=== PATIENT | female | born 1935 | race Caucasian/White ===

== ENCOUNTER 2016-09-22 18:53 | Inpatient (IN) | payer MEDICARE, OTHER ==
[~2016-09-22 18:53] MED LIST: ASPI81 PO; CALC600T34 PO; CALC625 PO; ENAL20TA81 PO; FEXO180 PO; FISH1000 PO; LEVO.075 PO; NIFE90TA37 PO; OMEP20CA5 PO
[2016-09-22 19:08] VITALS: BP 139/71; PULSE 70; RESP 18; TEMP 98.2; O2SAT 98
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
[2016-09-22] MEDS ORDERED: DONE5TAB7 PO (19:46)
[2016-09-22] MEDS ORDERED: LEVO75TA3 PO (19:46)
[2016-09-22] MEDS ORDERED: ALPR0.5T3 PO (19:46)
[2016-09-22] MEDS ORDERED: GLIM1TAB PO (19:46)
[2016-09-22] MEDS ORDERED: FISH1000 (19:46)
[2016-09-22] MEDS ORDERED: OMEG300C5 (19:46)
[2016-09-22] MEDS ORDERED: HYOS0.128 PO (19:46)
[2016-09-22] MEDS ORDERED: ASPI81CH CHEW (19:46)
[2016-09-22] MEDS ORDERED: ENAL20TA PO (19:46)
[2016-09-22] MEDS ORDERED: VALP250C PO (19:46)
[2016-09-22] MEDS ORDERED: NIFE30TA8 PO (19:46)
[2016-09-22] MEDS ORDERED: CALC600T64 (19:46)
[2016-09-22] MEDS ORDERED: POLY17S PO (19:46)
[2016-09-22 19:56] LABS: AUTOMATED NEUTROPHIL # 5.2 TH/MM3 (1.8-7.7); BASOPHIL # 0.1 TH/MM3 (0-0.2); BASOPHIL % 0.9 % (0.0-2.0); EOSINOPHIL # 0.4 TH/MM3 (0-0.4); EOSINOPHIL % 4.5 % (0.0-4.0); HEMATOCRIT 34.9 % (35.0-46.0); HEMO FLAGS DIFF FINAL; LYMPH % 18.8 % (9.0-44.0); LYMPHOCYTE # 1.5 TH/MM3 (1.0-4.8); MEAN CORPUSCULAR HEMOGLOBIN 32.5 PG (27.0-34.0); MEAN CORPUSCULAR HGB CONC 34.2 % (32.0-36.0); MONO % 10.8 % (0.0-8.0); PLATELET COUNT 295 TH/MM3 (150-450); RED BLOOD COUNT 3.68 MIL/MM3 (4.00-5.30); RED CELL DISTRIBUTION WIDTH 13.1 % (11.6-17.2)
[2016-09-22 20:21] LABS: ANION GAP 10 MEQ/L (5-15); AST (GOT) 14 U/L (15-37); BICARBONATE 28.9 MEQ/L (21.0-32.0); BLOOD UREA NITROGEN 17 MG/DL (7-18); CHLORIDE 98 MEQ/L (98-107); GLOMERULAR FILTRATION RATE 50 ML/MIN (>89); POTASSIUM 3.1 MEQ/L (3.5-5.1); SODIUM (NA) 137 MEQ/L (136-145)
[2016-09-22 20:22] LABS: ALT (GPT) 30 U/L (10-53)
[2016-09-22 20:24] LABS: ALKALINE PHOSPHATASE 65 U/L (45-117); TOTAL BILIRUBIN ADULT LESS THAN 0.1 MG/DL (0.2-1.0)
[2016-09-22 20:36] LABS: BACTERIA, URINE MANY /hpf; BLOOD, URINE NEG (NEG); GLUCOSE,URINE NEG (NEG); KETONE, URINE NEG (NEG); MUCUS URINE FEW /lpf (OCC); PH, URINE 6.5 (5.0-8.5); SQUAMOUS EPITHELIAL CELL URINE 1 /hpf (0-5); URINE COLOR YELLOW (YELLW/STRAW)
[2016-09-22 20:37] LABS: COMMENT (UR) CULTURE INDICATED; CULTURE IF INDICATED CULTURE INDICATED; NITRITE,URINE POS (NEG)
[2016-09-22] MEDS ORDERED: MACR100C2 PO (20:44)
[2016-09-22] MEDS: NITROFURANTOIN MONOHYD MACROCR 100 MG CAP PO SCH ×2 (20:45→22:30)
[2016-09-22] MEDS ORDERED: SULFAMETHOXAZOLE-TRIMETHOPRIM DS 800-160 MG TAB PO SCH (21:00)
[2016-09-22] MEDS ORDERED: HALOPERIDOL LACTATE 5 MG/ML AMP IM ONE ×2 (21:45→22:30)
[2016-09-22 21:57] VITALS: BP 191/83; PULSE 74; RESP 16; O2SAT 98
[2016-09-23 01:45] VITALS: BP 148/73; PULSE 72; RESP 15; TEMP 99; O2SAT 96
[2016-09-23 02:35] VITALS: BP 150/64; PULSE 84; RESP 18; TEMP 97.6; O2SAT 97
[2016-09-23] MEDS ORDERED: ACETAMINOPHEN 325 MG TAB PO PRN (03:45)
[2016-09-23] MEDS ORDERED: ALUMINUM/MAGNESIUM/SIMETH 30 ML CUP PO PRN (03:45)
[2016-09-23] MEDS ORDERED: MAGNESIUM HYDROXIDE SUSP 30 ML CUP PO PRN (03:45)
[2016-09-23] MEDS ORDERED: TEMAZEPAM 15 MG CAP PO PRN (04:00)
[2016-09-23] MEDS ORDERED: POLYETHYLENE GLYCOL 17 GM PKG PO PRN (04:30)
[2016-09-23] MEDS ORDERED: HYOSCYAMINE 0.125 MG TAB PO PRN (04:45)
[2016-09-23 05:16] VITALS: BP 141/56; PULSE 86; RESP 16; TEMP 97.6; O2SAT 97
[2016-09-23] MEDS ORDERED: FATTY ACID PO SCH (09:00)
[2016-09-23] MEDS ORDERED: OMEGA PO SCH (09:00)
[2016-09-23] MEDS: ALPRAZolam 0.5 MG TAB PO SCH ×2 (09:02→21:20)
[2016-09-23] MEDS: GLIMEPIRIDE 1 MG TAB PO SCH ×2 (09:02→21:20)
[2016-09-23] MEDS: VALPROIC ACID 250 MG CAP PO SCH ×2 (09:02→21:20)
[2016-09-23] MEDS: NIFEdipine 30 MG SUSTAINED RELEASE TAB PO SCH (09:02)
[2016-09-23] MEDS: ASPIRIN 81 MG CHEW TAB CHEW SCH (09:02)
[2016-09-23] MEDS: ENALAPRIL MALEATE 10 MG TAB PO SCH ×2 (09:02→21:19)
[2016-09-23] MEDS: CALCIUM/VITAMIN D 250 MG/125 U TAB PO SCH ×2 (09:02→21:20)
[2016-09-23] MEDS: NITROFURANTOIN MONOHYD MACROCR 100 MG CAP PO SCH ×2 (09:02→21:20)
[2016-09-23] MEDS ORDERED: GLUCAGON 1 MG/ML VIAL OTHER PRN (09:45)
[2016-09-23] MEDS ORDERED: DEXTROSE 50% IN WATER 50 ML VIAL(D50) IV PRN (09:45)
[2016-09-23] MEDS ORDERED: POTASSIUM CHLORIDE 20 MEQ CONTROLLED RELEASE TAB PO ONE (09:45)
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
[2016-09-23] MEDS: INSULIN ASPART SUPPLEMENTAL SCALE SQ SCH ×3 (11:00→21:00)
[2016-09-23] MEDS: LORazepam 0.5 MG TAB PO PRN (13:34)
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
[2016-09-23 18:00] VITALS: BP 143/60; PULSE 81; RESP 17; TEMP 97.5; O2SAT 98
[2016-09-23] MEDS: DONEPEZIL HCL 5 MG TAB PO SCH (21:20)
[2016-09-24 05:37] VITALS: BP 187/76; PULSE 74; RESP 16; TEMP 97.9; O2SAT 96
[2016-09-24] MEDS: INSULIN ASPART SUPPLEMENTAL SCALE SQ SCH ×4 (07:00→21:00)
[2016-09-24] MEDS: NIFEdipine 30 MG SUSTAINED RELEASE TAB PO SCH (08:42)
[2016-09-24] MEDS: ASPIRIN 81 MG CHEW TAB CHEW SCH (08:42)
[2016-09-24] MEDS: ALPRAZolam 0.5 MG TAB PO SCH ×2 (08:42→21:47)
[2016-09-24] MEDS: GLIMEPIRIDE 1 MG TAB PO SCH ×2 (08:42→21:48)
[2016-09-24] MEDS: VALPROIC ACID 250 MG CAP PO SCH ×2 (08:43→21:47)
[2016-09-24] MEDS: ENALAPRIL MALEATE 10 MG TAB PO SCH ×2 (08:43→21:47)
[2016-09-24] MEDS: CALCIUM/VITAMIN D 250 MG/125 U TAB PO SCH ×2 (08:43→21:47)
[2016-09-24] MEDS: NITROFURANTOIN MONOHYD MACROCR 100 MG CAP PO SCH ×2 (08:43→21:47)
--- NOTE | 2016-09-24 08:49 | PD.CONS ---
Provisional Diagnosis Admission Date Sep 23, 2016 at 00:37 [place] I. Dementia with behavioral disturbances F03.91 History of Present Illness Service Psychiatry Consult Requested By Dr. ruff Reason for Consult Second opinion petition [facility] Primary Care Physician Tacho Goldberg MD HPI Patient is an 80-year-old female admitted to Dr. ruff service under the [employer] act. Dr. ruff H&P reviewed and agreed with. Patient seen by me with floor staff in dayroom patient is diffusely confused though pleasant with no significant behavioral problems. Needing occasional interventions by staff. Dr. ruff signed first opinion petition supporting [facility]. I agree. Patient meets criteria for involuntary psychiatric hospitalization under the [facility]. Thus I will cosign second opinion petition supporting [facility] Past Family Social History Coded Allergies: Flagyl (Verified Allergy, Mild, NAUSEA, 07/14/07) Amlodipine (Verified Allergy, Unknown, 09/22/16) Benzonatate (Verified Allergy, Unknown, 09/22/16) Clonidine (Verified Allergy, Unknown, 09/22/16) Fluticasone (Verified Allergy, Unknown, 09/22/16) Labetalol (Verified Allergy, Unknown, 09/22/16) Propranolol (Verified Allergy, Unknown, 09/22/16) Active Scripts Nitrofurantoin Monohydrate Macrocrystals (Macrobid)100 Mg [id number] Mg PO BID 7 Days Ref 0 Prov:Gabriela Brito MD 09/22/16 Reported Medications Valproic Acid 250 Mg Uxr227 Mg PO BID #60 CAP Ref 0 09/22/16 Polyethylene Glycol 3350 Powder 17 Gm Pow17 Gm PO DIRECTED #1 BOTTLE Ref 0 09/22/16 Nifedipine ER 24 HR 30 Mg Tab Po Daily 09/22/16 Levothyroxine 75 Mcg Tab75 Mcg PO DAILY #30 TAB Ref 0 09/22/16 Hyoscyamine 0.125 Mg Tab0.125 Mg PO Q4H Ref 0 09/22/16 Glimepiride 1 Mg Tab1 Mg PO BID #30 TAB Ref 0 Take with breakfast or first main meal 09/22/16 [place]-3 Fatty Acids (Fish Oil)1,000 Mg Cap Bid 09/22/16 Enalapril 20 Mg Tab20 Mg PO BID #30 TAB Ref 0 09/22/16 Donepezil 5 Mg Tab5 Mg PO HS #30 TAB Ref 0 09/22/16 Calcium Carbonate/Vitamin D3 (Calcium 600 + Vit D Tablet)1 Each Tablet1 Tab 09/22/16 Aspirin 81 Mg Chew81 Mg CHEW DAILY Ref 0 09/22/16 Alprazolam 0.5 Mg Tab0.5 Mg PO BID Ref 0 09/22/16 Discontinued Reported Medications [place]-3 Fatty Acids (Fish Oil)300 Mg Capsule 09/22/16 Current Medications Medications (Trade) Dose Ordered Sig/Dayna Route Start Time Stop Time Status Last Admin (Tylenol) 650 mg Q4H PRN PO 09/23/16 03:45 (Milk Of Magnesia Liq) 30 ml DAILY PRN PO 09/23/16 03:45 (Mag-Al Plus Susp Liq) 30 ml Q6H PRN PO 09/23/16 03:45 (Ativan) 0.5 mg Q4H PRN PO 09/23/16 04:00 09/23/16 13:34 (Ativan Inj) 0.5 mg Q4H PRN IM 09/23/16 04:00 (Restoril) 15 mg HS PRN PO 09/23/16 04:00 (Xanax) 0.5 mg BID PO 09/23/16 09:00 09/23/16 21:20 (Aspirin Chew) 81 mg DAILY CHEW 09/23/16 09:00 09/23/16 09:02 (Aricept) 5 mg HS PO 09/23/16 21:00 09/23/16 21:20 (Vasotec) 20 mg BID PO 09/23/16 09:00 09/23/16 21:19 (Amaryl) 1 mg BID PO 09/23/16 09:00 09/23/16 21:20 (Procardia Xl) 30 mg DAILY PO 09/23/16 09:00 09/23/16 09:02 (Depakene) 250 mg BID PO 09/23/16 09:00 09/23/16 21:20 (Macrobid) 100 mg BID PO 09/23/16 09:00 09/23/16 21:20 (Oscal-D 250-125) 500 mg BID PO 09/23/16 09:00 09/23/16 21:20 (Miralax) 17 gm DAILY PRN PO 09/23/16 04:30 (Levsin) 0.125 mg Q4H PRN PO 09/23/16 04:45 Patient Own Medication PT OWN MED: FISH OIL D... BID PO 09/23/16 09:00 Hold (D50w (Vial) Inj) 50 ml UNSCH PRN IV 09/23/16 09:45 (Glucagon Inj) 1 mg UNSCH PRN OTHER 09/23/16 09:45 Physical Exam Vital Signs Vital Signs Date Time Temp Pulse Resp B/P Pulse Ox O2 Delivery O2 Flow Rate FiO2 09/24/16 05:37 97.9 74 16 187/76 96 09/23/16 01:45 Room Air I/O 09/23/16 09/23/16 09/24/16 08:00 16:00 00:00 Intake Total 120 ml 240 ml 480 ml Balance 120 ml 240 ml 480 ml Mental Status Examination Alert diffusely confused white female Appearance Fairly clean and neat Speech: Circumstantial, Tangential Orientation: Person, Place (vaguely) Memory: Impaired (describe) Thought Process: Loose Association Thought Content: Other (disorganized) Language Poor Fund of Knowledge Poor Hallucination Type: None Attention and Concentration: Other (poor) Suicidal Ideation: No Previous Suicide Attempts: No Homicidal Ideation: No Previous Homicide Attempts: No Insight: Poor Judgment: Poor Affect: Other (slight decrease range of motion intensity) Mood: Euthymic (somewhat restricted) Motor Activity: Abnormal gait-specify (patient sitting in [place] chair unable to ascertain) Assessment & Plan Problem List: (1) Dementia with behavioral disturbance ICD Code: F03.91 Assessment & Plan Estimated LOS: days Problem Qualifiers (1) Dementia with behavioral disturbance: Qualified Code: F03.91 - Dementia with behavioral disturbance, unspecified dementia type Juancho Becerra MD Sep 24, 2016 08:49
[2016-09-24] MEDS ORDERED: cloNIDine HCL 0.1 MG TAB PO PRN (09:15)
[2016-09-24 11:25] LABS: ANION GAP 6 MEQ/L (5-15); BICARBONATE 33.1 MEQ/L (21.0-32.0); BLOOD UREA NITROGEN 19 MG/DL (7-18); CHLORIDE 98 MEQ/L (98-107); GLOMERULAR FILTRATION RATE 56 ML/MIN (>89); POTASSIUM 3.8 MEQ/L (3.5-5.1); SODIUM (NA) 137 MEQ/L (136-145)
[2016-09-24 12:00] LABS: FREE T4 1.07 NG/DL (0.76-1.46); HDL CHOLESTEROL 52.9 MG/DL (40.0-60.0); LDL CHOLESTEROL 144 MG/DL (0-99)
[2016-09-24 13:00] VITALS: BP 161/76; PULSE 79
[2016-09-24] MEDS ORDERED: hydrALAZINE HCL 25 MG TAB PO PRN (13:15)
--- NOTE | 2016-09-24 13:17 | HHI.PR ---
Subjective Remarks Patient seen in follow-up for hypertension, UTI, hypokalemia, dementia admitted to the psychiatric unit under Piña act for psychosis. She appears calm today. She is requesting juice. No fever or chills. Objective Vitals Vital Signs Date Time Temp Pulse Resp B/P Pulse Ox O2 Delivery O2 Flow Rate FiO2 09/24/16 05:37 97.9 74 16 187/76 96 09/23/16 18:00 97.5 81 17 143/60 98 I/O 09/23/16 09/23/16 09/23/16 09/24/16 09/24/16 09/24/16 07:00 15:00 23:00 07:00 15:00 23:00 Intake Total 0 ml 360 ml 480 ml 0 ml 360 ml Balance 0 ml 360 ml 480 ml 0 ml 360 ml Intake Oral 0 ml 360 ml 480 ml 0 ml 360 ml # Voids 1 2 2 Result Diagram: 09/22/16 1945 09/24/16 1016 Objective Remarks GENERAL: Elderly female, demented. CARDIOVASCULAR: Normal rate and regular rhythm without murmurs, gallops, or rubs. RESPIRATORY: Good respiratory efforts. Breath sounds equal and clear to auscultation bilaterally. GASTROINTESTINAL: Abdomen soft, non-tender, non-distended. Normal active bowel sounds MUSCULOSKELETAL: Extremities without cyanosis, or edema. NEURO: Alert and oriented to self. Moves all ext x4 PSYCH: Calm A/P Problem List: (1) Dementia with behavioral disturbance ICD Code: F03.91 Status: Acute Plan: Management per psychiatry. (2) Urinary tract infection ICD Code: N39.0 Status: Acute Plan: Urine grew Escherichia coli. Sensitive to Macrobid. Continue Macrobid (3) Hypertension ICD Code: I10 Status: Acute Plan: Blood pressure labile. Mostly controlled. Continue Procardia and Vasotec. Hydralazine as needed. (4) Hypokalemia ICD Code: E87.6 Status: Acute Plan: Resolved. (5) Hyperlipidemia ICD Code: E78.5 Status: Acute Problem Qualifiers (1) Dementia with behavioral disturbance: Qualified Code: F03.91 - Dementia with behavioral disturbance, unspecified dementia type (2) Urinary tract infection: Qualified Code: N30.00 - Acute cystitis without hematuria Jairo Guzmán MD Sep 24, 2016 13:17
[2016-09-24 16:46] LABS: HEMOGLOBIN A1a 0.9 %; HEMOGLOBIN A1b 1.2 %; HEMOGLOBIN Ao 83.1 %; HEMOGLOBIN LA1C 2.5 %; HEMOGLOBIN P3 4.4 %
[2016-09-24 18:00] VITALS: BP 131/71; PULSE 80; RESP 18; TEMP 98.3; O2SAT 98
[2016-09-24] MEDS: DONEPEZIL HCL 5 MG TAB PO SCH (21:47)
[2016-09-25 06:12] VITALS: BP 149/72; PULSE 76; RESP 17; TEMP 98.1; O2SAT 95
[2016-09-25] MEDS: INSULIN ASPART SUPPLEMENTAL SCALE SQ SCH ×4 (06:38→21:00)
[2016-09-25] MEDS: GLIMEPIRIDE 1 MG TAB PO SCH ×2 (09:26→21:29)
[2016-09-25] MEDS: NIFEdipine 30 MG SUSTAINED RELEASE TAB PO SCH (09:26)
[2016-09-25] MEDS: ENALAPRIL MALEATE 10 MG TAB PO SCH ×2 (09:26→21:29)
[2016-09-25] MEDS: CALCIUM/VITAMIN D 250 MG/125 U TAB PO SCH ×2 (09:27→21:29)
[2016-09-25] MEDS: ASPIRIN 81 MG CHEW TAB CHEW SCH (09:27)
[2016-09-25] MEDS: NITROFURANTOIN MONOHYD MACROCR 100 MG CAP PO SCH ×2 (09:27→21:29)
[2016-09-25] MEDS: ALPRAZolam 0.5 MG TAB PO SCH ×2 (09:27→21:29)
[2016-09-25] MEDS: VALPROIC ACID 250 MG CAP PO SCH ×2 (09:27→21:28)
[2016-09-25 14:45] VITALS: BP 102/59; PULSE 77; RESP 18; TEMP 98; O2SAT 96
[2016-09-25 15:55] VITALS: BP 175/82; PULSE 89; RESP 18; TEMP 97.5; O2SAT 98
[2016-09-25 17:52] LABS: SM ANTIBODY <1.0 NEG AI (<1.0 NEGATIVE); SM/RNP ANTIBODY <1.0 NEG AI (<1.0 NEGATIVE)
[2016-09-25 18:01] VITALS: BP 175/82; PULSE 89; RESP 18; TEMP 97.5; O2SAT 98
[2016-09-25] MEDS: LORazepam 0.5 MG TAB PO PRN (18:04)
[2016-09-25] MEDS: DONEPEZIL HCL 5 MG TAB PO SCH (21:29)
[2016-09-26 05:51] VITALS: BP 160/73; PULSE 63; RESP 16; TEMP 98; O2SAT 96
[2016-09-26] MEDS: INSULIN ASPART SUPPLEMENTAL SCALE SQ SCH ×4 (06:13→21:00)
[2016-09-26] MEDS: LORazepam 2 MG/ML VIAL IM PRN ×2 (07:30→17:45)
[2016-09-26] MEDS: CALCIUM/VITAMIN D 250 MG/125 U TAB PO SCH ×2 (09:00→21:23)
[2016-09-26] MEDS: NIFEdipine 30 MG SUSTAINED RELEASE TAB PO SCH (09:00)
[2016-09-26] MEDS: GLIMEPIRIDE 1 MG TAB PO SCH ×2 (09:00→21:23)
[2016-09-26] MEDS: VALPROIC ACID 250 MG CAP PO SCH ×2 (09:00→21:23)
[2016-09-26] MEDS: ENALAPRIL MALEATE 10 MG TAB PO SCH ×2 (09:00→21:23)
[2016-09-26] MEDS: ASPIRIN 81 MG CHEW TAB CHEW SCH (09:00)
[2016-09-26] MEDS: NITROFURANTOIN MONOHYD MACROCR 100 MG CAP PO SCH ×2 (09:00→21:26)
[2016-09-26] MEDS: ALPRAZolam 0.5 MG TAB PO SCH ×2 (09:00→21:23)
--- NOTE | 2016-09-26 14:33 | HHI.PR ---
Subjective Remarks Follow-up visit HTN, UTI, hypokalemia, dementia. Patient seen and examined today, lying in bed. Reports she is tired. Otherwise, denies pain and discomfort. Denies fevers, chills. Denies dysuria. Objective Vitals Vital Signs Date Time Temp Pulse Resp B/P Pulse Ox O2 Delivery O2 Flow Rate FiO2 09/26/16 05:51 98.0 63 16 160/73 96 09/25/16 18:01 97.5 89 18 175/82 98 09/25/16 15:55 97.5 89 18 175/82 98 09/25/16 14:45 98.0 77 18 102/59 96 I/O 09/25/16 09/25/16 09/25/16 09/26/16 09/26/16 09/26/16 07:00 15:00 23:00 07:00 15:00 23:00 Intake Total 960 ml 60 ml 240 ml Balance 960 ml 60 ml 240 ml Intake Oral 960 ml 60 ml 240 ml # Voids 1 2 1 2 Result Diagram: 09/22/16 1945 09/24/16 1016 Objective Remarks GENERAL: This is a well-nourished, well-developed patient, in no apparent distress. SKIN: Warm and dry. HEENT: Normocephalic. Pupils equal round and reactive. Nose without bleeding. Airway patent. NECK: Trachea midline. No JVD. Supple. CARDIOVASCULAR: Regular rate and rhythm without murmurs, gallops, or rubs. RESPIRATORY: Clear to auscultation. Breath sounds equal bilaterally. No wheezes , rales, or rhonchi. GASTROINTESTINAL: Abdomen soft, non-tender, nondistended. Bowel Sounds normoactive x4. MUSCULOSKELETAL: Extremities without clubbing, cyanosis, or edema. NEUROLOGICAL: Awake and alert. Confuse. Oriented to self. Follows some commands and answers and responds to some questions. Moves all extremities. Normal speech. A/P Problem List: (1) Dementia with behavioral disturbance ICD Code: F03.91 Status: Acute (2) Urinary tract infection ICD Code: N39.0 Status: Acute (3) Hypertension ICD Code: I10 Status: Acute (4) Hypokalemia ICD Code: E87.6 Status: Acute (5) Hyperlipidemia ICD Code: E78.5 Status: Acute Assessment and Plan Patient is an 80-year-old female with primary medical history of Alzheimer's disease who presents to the ED as a Piña acted by police department. As per report, the patient is a resident of an [facility] and became violent trying to take away other resident's silverware. She is now admitted to inpatient psychiatry unit for further evaluation. Consulted for medical management. Dementia, Alzheimer's disease - Managed by psychiatry team Urinary tract infection - Urine culture grew Escherichia coli. Sensitive to Macrobid. - Continue Macrobid use. - Encourage by mouth fluid intake. HTN - Continue Procardia and Vasotec. Hydralazine as needed. ASA. - Monitor BP trend DM 2 - Continue insulin sliding scale, glimepiride - Monitor Accu-Cheks. - Monitor for hypoglycemia Hyperlipidemia - Due to patient's mental status, will weigh in risk benefits of starting statin medication. - Continue with low-cholesterol diet DVT prop ambulatory Discussed with patient, nursing, Dr. Guzmán Problem Qualifiers (1) Dementia with behavioral disturbance: Qualified Code: F03.91 - Dementia with behavioral disturbance, unspecified dementia type (2) Urinary tract infection: Qualified Code: N30.00 - Acute cystitis without hematuria Janet Ley Sep 26, 2016 14:33
[2016-09-26 18:02] VITALS: BP 147/66; PULSE 73; RESP 16; TEMP 97.8; O2SAT 97
[2016-09-26] MEDS: DONEPEZIL HCL 5 MG TAB PO SCH (21:23)
[2016-09-27] MEDS: INSULIN ASPART SUPPLEMENTAL SCALE SQ SCH ×4 (06:00→20:10)
[2016-09-27 06:38] VITALS: BP 140/57; PULSE 76; RESP 17; TEMP 98; O2SAT 93
[2016-09-27] MEDS: GLIMEPIRIDE 1 MG TAB PO SCH ×2 (08:18→20:10)
[2016-09-27] MEDS: ASPIRIN 81 MG CHEW TAB CHEW SCH (08:18)
[2016-09-27] MEDS: ENALAPRIL MALEATE 10 MG TAB PO SCH ×2 (08:18→20:09)
[2016-09-27] MEDS: NITROFURANTOIN MONOHYD MACROCR 100 MG CAP PO SCH ×2 (08:18→20:09)
[2016-09-27] MEDS: CALCIUM/VITAMIN D 250 MG/125 U TAB PO SCH ×2 (08:18→20:09)
[2016-09-27] MEDS: NIFEdipine 30 MG SUSTAINED RELEASE TAB PO SCH (08:18)
[2016-09-27] MEDS: ALPRAZolam 0.5 MG TAB PO SCH ×2 (08:18→20:10)
[2016-09-27] MEDS: VALPROIC ACID 250 MG CAP PO SCH ×2 (08:18→20:10)
[2016-09-27] MEDS: LORazepam 2 MG/ML VIAL IM PRN ×2 (12:17→17:12)
--- NOTE | 2016-09-27 15:28 | HHI.PR ---
Objective Vitals Vital Signs Date Time Temp Pulse Resp B/P Pulse Ox O2 Delivery O2 Flow Rate FiO2 09/27/16 06:38 98.0 76 17 140/57 93 09/26/16 18:02 97.8 73 16 147/66 97 I/O 09/26/16 09/26/16 09/26/16 09/27/16 09/27/16 09/27/16 07:00 15:00 23:00 07:00 15:00 23:00 Intake Total 240 ml 600 ml 120 ml 240 ml Balance 240 ml 600 ml 120 ml 240 ml Intake Oral 240 ml 600 ml 120 ml 240 ml # Voids 2 1 2 Result Diagram: 09/22/16 1945 09/24/16 1016 Objective Remarks GENERAL: This is a well-nourished, well-developed patient, in no apparent distress. SKIN: Warm and dry. HEENT: Normocephalic. Pupils equal round and reactive. Nose without bleeding. Airway patent. NECK: Trachea midline. No JVD. Supple. CARDIOVASCULAR: Regular rate and rhythm without murmurs, gallops, or rubs. RESPIRATORY: Clear to auscultation. Breath sounds equal bilaterally. No wheezes , rales, or rhonchi. GASTROINTESTINAL: Abdomen soft, non-tender, nondistended. Bowel Sounds normoactive x4. MUSCULOSKELETAL: Extremities without clubbing, cyanosis, or edema. NEUROLOGICAL: Awake and alert. Confuse. Oriented to self. Follows some commands and answers and responds to some questions. Moves all extremities. Normal speech. A/P Problem List: (1) Dementia with behavioral disturbance ICD Code: F03.91 Status: Acute (2) Urinary tract infection ICD Code: N39.0 Status: Acute (3) Hypertension ICD Code: I10 Status: Acute (4) Hypokalemia ICD Code: E87.6 Status: Acute (5) Hyperlipidemia ICD Code: E78.5 Status: Acute Assessment and Plan Patient is an 80-year-old female with primary medical history of Alzheimer's disease who presents to the ED as a Piña acted by police department. As per report, the patient is a resident of an [facility] and became violent trying to take away other resident's silverware. She is now admitted to inpatient psychiatry unit for further evaluation. Consulted for medical management. Dementia, Alzheimer's disease - Managed by psychiatry team Urinary tract infection - Urine culture grew Escherichia coli. Sensitive to Macrobid. - Continue Macrobid use. - Encourage by mouth fluid intake. HTN - Continue Procardia and Vasotec. Hydralazine as needed. ASA. - Monitor BP trend DM 2 - Continue insulin sliding scale, glimepiride - Monitor Accu-Cheks. - Monitor for hypoglycemia Hyperlipidemia - Due to patient's mental status, will weigh in risk benefits of starting statin medication. - Continue with low-cholesterol diet DVT prop ambulatory Discussed with patient, nursing, Dr. Guzmán Problem Qualifiers (1) Dementia with behavioral disturbance: Qualified Code: F03.91 - Dementia with behavioral disturbance, unspecified dementia type (2) Urinary tract infection: Qualified Code: N30.00 - Acute cystitis without hematuria Janet Ley Sep 27, 2016 15:28
[2016-09-27] MEDS: HALOPERIDOL 0.5 MG TAB PO SCH (16:00)
--- NOTE | 2016-09-27 17:45 | MH ---
cc: BHARAT HUGHES M.D. DATE OF ADMISSION: 09/23/2016 DATE OF VISIT: 09/27/2016. EXTENDED SESSION Individual session with the patient, review with the treatment team, extended telephone conversation with her daughter, Wendi. In the individual sessions, she was observed sitting in the day room in the Joe chair with staff in attendance. She was not very verbal and kept insisting that she be allowed to sit with another patient in the other corner. She would not answer any specific questions. The staff in attendance reported that she has been very combative and threw her medications, was making obscene gestures to staff, et cetera. When questioned about this, she denied engaging in this behavior. She stated that she has been sleeping well and at that her appetite has been fine. Her cognitive function is unchanged. No suicidal or homicidal ideations were verbalized. The nursing staff reported that she threw her medications away and did not wish to take any more. She is on one-to-one due to her fall risk. I had a telephone conversation with her daughter, Wendi. The purpose of this was to gather more background information, to review diagnosis, treatment approach and discuss discharge plans. She indicated that Ms. Meade had worked for the [employer] for over 30 years and retired about 6 years ago. She returned to work doing part-time work at the [employer]. She began to deteriorate cognitively about 4 years ago at which time her was also deteriorating due to a cerebrovascular accident. She lived in the [facility] for two years and then was transferred to the current assisted living facility two years ago. While in this facility, she has been increasingly demanding and at times combative. The daughter indicated that she has always been a somewhat demanding individual and her has taken care of her most of her life. Since his about four months ago, she has been somewhat more irritable and combative. The daughter indicated that about 6 months ago she was evaluated by psychiatrist, Dr. Alvarez. She did not seem much aware of as to what medications were prescribed. Specifically, she denied any knowledge of her being on Depakote or the reasons for it. She denied any knowledge of the patient experiencing any seizures in the past. She also could not give much information regarding the dementia workup done in the past. She mentioned she had been under care of Dr. Dietrich but about six months ago the care was transferred to Dr. Goldberg, who also would visit her in the assisted living facility. She also indicated that there is a psychiatrist affiliated with this facility but could not tell as to what medication might have been prescribed. Other than evaluation with Dr. Alvarez, she has not had any formal psychiatric evaluation. She denied any previous psychiatric hospitalization. The daughter denied any family history of psychiatric illness; however, indicated that her sister, i.e. the patient's other daughter is an alcoholic. The daughter denied any knowledge of alcohol or drugs in the daughter and denied the patient abusing any alcohol or drugs. I shared with her my diagnostic impression, the treatment approach and the discharge plans. She was not sure whether she will be accepted back at the assisted facility. As such, she went to look at [facility] last week but the person in charge was not there. She is aware of the court hearing coming up on 10/01/2016. She was supported the treatment / discharge plans. MD KYLE Og/JENI /4:51 PM /5:40 PM
[2016-09-27 20:00] VITALS: BP 155/70; PULSE 76; RESP 16; O2SAT 94
[2016-09-27] MEDS: DONEPEZIL HCL 5 MG TAB PO SCH (20:09)
[2016-09-28] MEDS: INSULIN ASPART SUPPLEMENTAL SCALE SQ SCH ×4 (06:00→21:00)
[2016-09-28 06:12] VITALS: BP 153/65; PULSE 76; RESP 17; TEMP 98.6; O2SAT 95
--- NOTE | 2016-09-28 07:02 | HHI.FPPN ---
Subjective Remarks calm in desmond chair does not remember getting her meds several minutes ago, asking for her am meds d/w RN, combative, directable Objective Vitals Vital Signs Date Time Temp Pulse Resp B/P Pulse Ox O2 Delivery O2 Flow Rate FiO2 09/28/16 06:12 98.6 76 17 153/65 95 09/27/16 20:00 76 16 155/70 94 I/O 09/27/16 09/27/16 09/27/16 09/28/16 09/28/16 09/28/16 07:00 15:00 23:00 07:00 15:00 23:00 Intake Total 120 ml 240 ml 795 ml Balance 120 ml 240 ml 795 ml Intake Oral 120 ml 240 ml 795 ml # Voids 2 1 1 Result Diagram: 09/24/16 1016 Objective Remarks GENERAL: SKIN: Warm and dry. HEAD: Atraumatic. Normocephalic. EYES: Pupils equal and round. No scleral icterus. No injection or drainage. ENT: No nasal bleeding or discharge. Mucous membranes pink and moist. NECK: Trachea midline. No JVD. CARDIOVASCULAR: Regular rate and rhythm. RESPIRATORY: No accessory muscle use. Clear to auscultation. Breath sounds equal bilaterally. GASTROINTESTINAL: Abdomen soft, non-tender, nondistended. Hepatic and splenic margins not palpable. MUSCULOSKELETAL: Extremities without clubbing, cyanosis, or edema. No obvious deformities. NEUROLOGICAL: Awake and alert. No obvious cranial nerve deficits. Motor grossly within normal limits. 2 out of 5 muscle strength in the arms and legs. Normal speech. PSYCHIATRIC: flat Medications and IVs Current Medications Medications (Trade) Dose Ordered Sig/Dayna Route Start Time Stop Time Status Last Admin (Tylenol) 650 mg Q4H PRN PO 09/23/16 03:45 (Milk Of Magnesia Liq) 30 ml DAILY PRN PO 09/23/16 03:45 (Mag-Al Plus Susp Liq) 30 ml Q6H PRN PO 09/23/16 03:45 (Ativan Inj) 0.5 mg Q4H PRN IM 09/23/16 04:00 09/27/16 17:12 (Restoril) 15 mg HS PRN PO 09/23/16 04:00 (Xanax) 0.5 mg BID PO 09/23/16 09:00 09/27/16 20:10 (Aspirin Chew) 81 mg DAILY CHEW 09/23/16 09:00 09/27/16 08:18 (Aricept) 5 mg HS PO 09/23/16 21:00 09/27/16 20:09 (Vasotec) 20 mg BID PO 09/23/16 09:00 09/27/16 20:09 (Amaryl) 1 mg BID PO 09/23/16 09:00 09/27/16 20:10 (Procardia Xl) 30 mg DAILY PO 09/23/16 09:00 09/27/16 08:18 (Depakene) 250 mg BID PO 09/23/16 09:00 09/27/16 20:10 (Macrobid) 100 mg BID PO 09/23/16 09:00 09/27/16 20:09 (Oscal-D 250-125) 500 mg BID PO 09/23/16 09:00 09/27/16 20:09 (Miralax) 17 gm DAILY PRN PO 09/23/16 04:30 (Levsin) 0.125 mg Q4H PRN PO 09/23/16 04:45 Patient Own Medication PT OWN MED: FISH OIL D... BID PO 09/23/16 09:00 Hold (D50w (Vial) Inj) 50 ml UNSCH PRN IV 09/23/16 09:45 (Glucagon Inj) 1 mg UNSCH PRN OTHER 09/23/16 09:45 (Apresoline) 25 mg Q8HR PRN PO 09/24/16 13:15 (Haldol) 0.5 mg DAILY@1600 PO 09/27/16 16:00 A/P Assessment and Plan AMS, Psychotic Dementia, Alzheimer's disease - Managed by psychiatry team Urinary tract infection - Escherichia coli. Sensitive to Macrobid. - Continue Macrobid use until the - Encourage by mouth fluid intake. HTN - Continue Procardia and Vasotec. Hydralazine as needed. ASA. - Monitor BP trend DM 2 - Continue insulin sliding scale, glimepiride - Monitor Accu-Cheks. - Monitor for hypoglycemia Hyperlipidemia - Due to patient's mental status, will weigh in risk benefits of starting statin medication. - Continue with low-cholesterol diet DVT prop ambulatory Discussed with patient, nursing Tacho Goldberg MD Sep 28, 2016 07:02
[2016-09-28] MEDS: ASPIRIN 81 MG CHEW TAB CHEW SCH (08:56)
[2016-09-28] MEDS: GLIMEPIRIDE 1 MG TAB PO SCH ×2 (08:56→21:05)
[2016-09-28] MEDS: ENALAPRIL MALEATE 10 MG TAB PO SCH ×2 (08:56→21:05)
[2016-09-28] MEDS: NITROFURANTOIN MONOHYD MACROCR 100 MG CAP PO SCH ×2 (08:56→21:05)
[2016-09-28] MEDS: CALCIUM/VITAMIN D 250 MG/125 U TAB PO SCH ×2 (08:56→21:05)
[2016-09-28] MEDS: NIFEdipine 30 MG SUSTAINED RELEASE TAB PO SCH (08:56)
[2016-09-28] MEDS: ALPRAZolam 0.5 MG TAB PO SCH ×2 (08:56→21:05)
[2016-09-28] MEDS: VALPROIC ACID 250 MG CAP PO SCH ×2 (08:56→21:05)
[2016-09-28] MEDS: LORazepam 2 MG/ML VIAL IM PRN ×2 (11:05→16:53)
[2016-09-28] MEDS: HALOPERIDOL 0.5 MG TAB PO SCH ×2 (16:00→16:29)
[2016-09-28 18:00] VITALS: PULSE 80; RESP 16; O2SAT 95
[2016-09-28 20:00] VITALS: BP 135/82; PULSE 68; O2SAT 96
[2016-09-28] MEDS: DONEPEZIL HCL 5 MG TAB PO SCH (21:05)
[2016-09-29 06:00] VITALS: BP 139/67; PULSE 72; RESP 17; TEMP 98.3
[2016-09-29] MEDS: INSULIN ASPART SUPPLEMENTAL SCALE SQ SCH ×4 (06:26→21:00)
[2016-09-29] MEDS: CALCIUM/VITAMIN D 250 MG/125 U TAB PO SCH ×2 (08:06→21:00)
[2016-09-29] MEDS: VALPROIC ACID 250 MG CAP PO SCH ×2 (08:06→21:00)
[2016-09-29] MEDS: ASPIRIN 81 MG CHEW TAB CHEW SCH (08:06)
[2016-09-29] MEDS: GLIMEPIRIDE 1 MG TAB PO SCH ×2 (08:06→21:07)
[2016-09-29] MEDS: NITROFURANTOIN MONOHYD MACROCR 100 MG CAP PO SCH ×2 (08:06→21:08)
[2016-09-29] MEDS: ENALAPRIL MALEATE 10 MG TAB PO SCH ×2 (08:07→21:07)
[2016-09-29] MEDS: NIFEdipine 30 MG SUSTAINED RELEASE TAB PO SCH (08:07)
[2016-09-29] MEDS: ALPRAZolam 0.5 MG TAB PO SCH (08:07)
[2016-09-29] MEDS: LORazepam 2 MG/ML VIAL IM PRN ×2 (10:30→15:30)
--- NOTE | 2016-09-29 12:48 | RADRPT ---
EXAM DATE/TIME: 09/29/2016 12:24 [facility] COMPARISON: No previous studies available for comparison. INDICATIONS : Altered mental status. RADIATION DOSE: 34.13 CTDIvol (mGy) MEDICAL HISTORY : Hypertension. Diabetes mellitus type 2. SURGICAL HISTORY : Hysterectomy. ENCOUNTER: Initial ACUITY: 1 day PAIN SCALE: Non-responsive LOCATION: cranial TECHNIQUE: Multiple contiguous axial images were obtained of the head. Using automated exposure control and adj ustment of the mA and/or kV according to patient size, radiation dose was kept as low as reasonably a chievable to obtain optimal diagnostic quality images. FINDINGS: CEREBRUM: The ventricles and cortical sulci are widened. There is decreased density in the periventricular whit e matter. No evidence of midline shift, mass lesion, hemorrhage or acute infarction. No extra-axial fluid collections are seen. POSTERIOR FOSSA: The cerebellum and brainstem are intact. The 4th ventricle is midline. The cerebellopontine angle i s unremarkable. EXTRACRANIAL: The visualized portion of the orbits is intact. SKULL: The calvaria is intact. No evidence of skull fracture. CONCLUSION: 1. No acute intracranial abnormality seen. 2. Atrophy and suspected small vessel ischemic change in the white matter. Juancho Lundberg MD on September 29, 2016 at 12:38 Board Certified Radiologist. This report was verified electronically.
[2016-09-29] MEDS ORDERED: PILL SPLITTER OTHER PRN (13:30)
[2016-09-29] MEDS: ESCITALOPRAM OXALATE 10 MG TAB PO SCH (14:35)
[2016-09-29 19:41] VITALS: PULSE 68; RESP 18; TEMP 98.1
[2016-09-30 05:52] VITALS: BP 158/73; PULSE 65; RESP 18; TEMP 97.8
[2016-09-30] MEDS: INSULIN ASPART SUPPLEMENTAL SCALE SQ SCH ×4 (06:21→21:00)
--- NOTE | 2016-09-30 06:45 | EKG ---
Date Performed: 09/29/2016 Time Performed: 19:26:47 PTAGE: 80 years EKG: Sinus rhythm WITH OCCASIONAL ECTOPIC PREMATURE COMPLEXES BORDERLINE ECG PREVIOUS TRACING : 04/18/2007 14.14 No significant change from previous tracing noted. DOCTOR: Sriram Rao Interpretating Date/Time 09/30/2016 06:45:07
[2016-09-30] MEDS: GLIMEPIRIDE 1 MG TAB PO SCH ×2 (09:13→21:50)
[2016-09-30] MEDS: NIFEdipine 30 MG SUSTAINED RELEASE TAB PO SCH (09:13)
[2016-09-30] MEDS: ASPIRIN 81 MG CHEW TAB CHEW SCH (09:13)
[2016-09-30] MEDS: ESCITALOPRAM OXALATE 10 MG TAB PO SCH (09:14)
[2016-09-30] MEDS: ENALAPRIL MALEATE 10 MG TAB PO SCH ×2 (09:14→21:51)
[2016-09-30] MEDS: CALCIUM/VITAMIN D 250 MG/125 U TAB PO SCH ×2 (09:15→21:50)
[2016-09-30] MEDS: VALPROIC ACID 250 MG CAP PO SCH ×2 (09:15→21:50)
[2016-09-30] MEDS: ALPRAZolam 0.5 MG TAB PO SCH (09:15)
--- NOTE | 2016-09-30 13:29 | PD.TTN ---
Present for Treatment Team Treatment Team Staff: Provider (Dr. Oivedo), Nurse (Brigitte), Psych Therapist ( GOPI Prado), Occupational Therapist (Clay) Patient Problems 1. Discharge planning 2. Medication compliance 3. Knowledge deficit 4. Lack of coping skills Progress Toward Goals Provider Input: Dr. Oviedo reported the patient must improve her behavior if she would like to be discharged and inquired if patient was eating and compliant with medications. Nurse Input: Nurse Brigitte reported the patient received two doses of Ativan yesterday and remains groggy today. According to Brigitte the patient slept well last night. Brigitte reported the patient has a rash/dry skin on her head. Additionally, Brigitte reported she listened to patient's lkungs and heard a slight crackeling in one lung. Nurse will contact patient's primary care doctor, Dr. Goldberg, for an evaluation. Occupational Therapist Input: Patient is not participating in groups. Documentation Scribe: GOPI Prado Date Resolved: Sep 30, 2016 Azul Herrera Sep 30, 2016 13:29
[2016-09-30] MEDS: HALOPERIDOL 0.5 MG TAB PO SCH (17:19)
[2016-09-30 18:00] VITALS: BP 157/70; PULSE 75; RESP 18; TEMP 97.8; O2SAT 98
[2016-09-30] MEDS: RESP: ALBUTEROL 2.5 MG/IPRATROPIUM 0.5 MG NEB (SCH) NEB (21:08)
[2016-10-01] MEDS: LORazepam 2 MG/ML VIAL IM PRN ×2 (04:17→18:48)
[2016-10-01 05:11] VITALS: BP 142/67; PULSE 72; RESP 18; TEMP 97.9
[2016-10-01] MEDS: INSULIN ASPART SUPPLEMENTAL SCALE SQ SCH ×4 (06:34→20:47)
[2016-10-01] MEDS: RESP: ALBUTEROL 2.5 MG/IPRATROPIUM 0.5 MG NEB (SCH) NEB ×2 (07:14→20:00)
[2016-10-01] MEDS: NIFEdipine 30 MG SUSTAINED RELEASE TAB PO SCH (08:54)
[2016-10-01] MEDS: GLIMEPIRIDE 1 MG TAB PO SCH ×2 (08:54→21:00)
[2016-10-01] MEDS: VALPROIC ACID 250 MG CAP PO SCH ×2 (08:54→21:00)
[2016-10-01] MEDS: ALPRAZolam 0.5 MG TAB PO SCH (08:54)
[2016-10-01] MEDS: ASPIRIN 81 MG CHEW TAB CHEW SCH (08:54)
[2016-10-01] MEDS: CALCIUM/VITAMIN D 250 MG/125 U TAB PO SCH ×2 (08:54→21:00)
[2016-10-01] MEDS: ESCITALOPRAM OXALATE 10 MG TAB PO SCH (08:55)
[2016-10-01] MEDS: ENALAPRIL MALEATE 10 MG TAB PO SCH ×2 (08:55→21:00)
[2016-10-01] MEDS: KETOCONAZOLE 2% SHAMPOO 120 ML BTL EXTERNAL SCH (09:00)
--- NOTE | 2016-10-01 14:01 | HHI.FPPN ---
Subjective Remarks called for crackles at base and facial rash pt calm d/w RN Objective Vitals Vital Signs Date Time Temp Pulse Resp B/P Pulse Ox O2 Delivery O2 Flow Rate FiO2 10/01/16 05:11 97.9 72 18 142/67 09/30/16 18:00 97.8 75 18 157/70 98 I/O 09/30/16 09/30/16 09/30/16 10/01/16 10/01/16 10/01/16 07:00 15:00 23:00 07:00 15:00 23:00 Intake Total 2 ml 960 ml 1200 ml 600 ml Balance 2 ml 960 ml 1200 ml 600 ml Intake Oral 2 ml 960 ml 1200 ml 240 ml Oral Supplement 360 ml # Voids 2 2 2 1 # Bowel Movements 1 Objective Remarks GENERAL: SKIN: Warm and dry. HEAD: Atraumatic. Normocephalic. EYES: Pupils equal and round. No scleral icterus. No injection or drainage. ENT: No nasal bleeding or discharge. Mucous membranes pink and moist. NECK: Trachea midline. No JVD. CARDIOVASCULAR: Regular rate and rhythm. RESPIRATORY: No accessory muscle use. bibasilar crackles, slight patch ronchi 1/ 2 thorax. Breath sounds equal bilaterally. GASTROINTESTINAL: Abdomen soft, non-tender, nondistended. Hepatic and splenic margins not palpable. MUSCULOSKELETAL: Extremities without clubbing, cyanosis, or edema. No obvious deformities. NEUROLOGICAL: Awake and alert. No obvious cranial nerve deficits. Motor grossly within normal limits. 2 out of 5 muscle strength in the arms and legs. Normal speech. PSYCHIATRIC: flat A/P Assessment and Plan AMS, Psychotic Dementia, Alzheimer's disease - Managed by psychiatry team Urinary tract infection- start augmentin until october 08. - Escherichia coli. Sensitive to Macrobid. -Macrobid use until the - Encourage by mouth fluid intake. PNA, Monitor for aspiration. on augmentin. Rash, seborrheic dermatitis: start nizoral shampoo. HTN - Continue Procardia and Vasotec. Hydralazine as needed. ASA. - Monitor BP trend. BP is variable. DM 2 - Continue insulin sliding scale, glimepiride - Monitor Accu-Cheks. - Monitor for hypoglycemia Hyperlipidemia - Due to patient's mental status, will weigh in risk benefits of starting statin medication. - Continue with low-cholesterol diet DVT prop ambulatory Discussed with patient, nursing Tacho Goldberg MD Oct 01, 2016 14:00
[2016-10-01] MEDS: AMOXICILLIN/CLAVULANATE K 875 MG TAB PO SCH ×2 (15:00→21:00)
[2016-10-01] MEDS ORDERED: AZITHROMYCIN 250 MG TAB PO ONE (15:00)
[2016-10-01] MEDS: HALOPERIDOL 0.5 MG TAB PO SCH (15:17)
[2016-10-01 18:00] VITALS: BP 131/81; PULSE 77; RESP 18; TEMP 98.1; O2SAT 99
[2016-10-02 01:00] VITALS: BP 136/69; PULSE 60; RESP 18; O2SAT 88; O2SAT 95
[2016-10-02 02:00] VITALS: O2SAT 95
[2016-10-02 04:00] VITALS: O2SAT 94
[2016-10-02 06:00] VITALS: RESP 16; O2SAT 94
[2016-10-02 06:16] VITALS: BP 154/74; PULSE 64; RESP 16; TEMP 97.4; O2SAT 94
[2016-10-02] MEDS: INSULIN ASPART SUPPLEMENTAL SCALE SQ SCH ×4 (06:39→20:45)
[2016-10-02] MEDS: RESP: ALBUTEROL 2.5 MG/IPRATROPIUM 0.5 MG NEB (SCH) NEB ×2 (08:00→19:22)
[2016-10-02] MEDS: NIFEdipine 30 MG SUSTAINED RELEASE TAB PO SCH (09:00)
[2016-10-02] MEDS: KETOCONAZOLE 2% SHAMPOO 120 ML BTL EXTERNAL SCH (09:00)
[2016-10-02] MEDS: AMOXICILLIN/CLAVULANATE K 875 MG TAB PO SCH ×2 (09:11→21:44)
[2016-10-02] MEDS: VALPROIC ACID 250 MG CAP PO SCH ×2 (09:12→21:44)
[2016-10-02] MEDS: ESCITALOPRAM OXALATE 10 MG TAB PO SCH (09:12)
[2016-10-02] MEDS: AZITHROMYCIN 250 MG TAB PO SCH (09:12)
[2016-10-02] MEDS: CALCIUM/VITAMIN D 250 MG/125 U TAB PO SCH ×2 (09:13→21:43)
[2016-10-02] MEDS: ASPIRIN 81 MG CHEW TAB CHEW SCH (09:13)
[2016-10-02] MEDS: GLIMEPIRIDE 1 MG TAB PO SCH ×2 (09:13→21:44)
[2016-10-02] MEDS: ENALAPRIL MALEATE 10 MG TAB PO SCH ×2 (09:13→21:43)
[2016-10-02] MEDS: ALPRAZolam 0.5 MG TAB PO SCH (09:13)
--- NOTE | 2016-10-02 10:36 | HHI.FPPN ---
Subjective Remarks calm grabbing at me redirectable no cough currently d/w RN Objective Vitals Vital Signs Date Time Temp Pulse Resp B/P Pulse Ox O2 Delivery O2 Flow Rate FiO2 10/02/16 06:16 97.4 64 16 154/74 94 10/02/16 06:00 16 94 10/02/16 01:00 95 2.00 10/02/16 01:00 60 18 136/69 88 10/01/16 18:00 98.1 77 18 131/81 99 I/O 10/01/16 10/01/16 10/01/16 10/02/16 10/02/16 10/02/16 07:00 15:00 23:00 07:00 15:00 23:00 Intake Total 600 ml 240 ml 0 ml Balance 600 ml 240 ml 0 ml Intake Oral 240 ml 240 ml 0 ml Oral Supplement 360 ml # Voids 1 2 2 # Bowel Movements 0 Objective Remarks GENERAL: SKIN: Warm and dry. HEAD: Atraumatic. Normocephalic. EYES: Pupils equal and round. No scleral icterus. No injection or drainage. ENT: No nasal bleeding or discharge. Mucous membranes pink and moist. NECK: Trachea midline. No JVD. CARDIOVASCULAR: Regular rate and rhythm. RESPIRATORY: No accessory muscle use. bibasilar crackles, slight patch ronchi 1/ 2 thorax. Breath sounds equal bilaterally. GASTROINTESTINAL: Abdomen soft, non-tender, nondistended. Hepatic and splenic margins not palpable. MUSCULOSKELETAL: Extremities without clubbing, cyanosis, or edema. No obvious deformities. NEUROLOGICAL: Awake and alert. No obvious cranial nerve deficits. Motor grossly within normal limits. 2 out of 5 muscle strength in the arms and legs. Normal speech. PSYCHIATRIC: flat Medications and IVs Current Medications Medications (Trade) Dose Ordered Sig/Dayna Route Start Time Stop Time Status Last Admin (Tylenol) 650 mg Q4H PRN PO 09/23/16 03:45 09/30/16 21:51 (Milk Of Magnesia Liq) 30 ml DAILY PRN PO 09/23/16 03:45 (Mag-Al Plus Susp Liq) 30 ml Q6H PRN PO 09/23/16 03:45 (Ativan Inj) 0.5 mg Q4H PRN IM 09/23/16 04:00 10/01/16 18:48 (Restoril) 15 mg HS PRN PO 09/23/16 04:00 (Aspirin Chew) 81 mg DAILY CHEW 09/23/16 09:00 10/02/16 09:13 (Vasotec) 20 mg BID PO 09/23/16 09:00 10/02/16 09:13 (Amaryl) 1 mg BID PO 09/23/16 09:00 10/02/16 09:13 (Procardia Xl) 30 mg DAILY PO 09/23/16 09:00 10/02/16 09:00 (Depakene) 250 mg BID PO 09/23/16 09:00 10/02/16 09:12 (Oscal-D 250-125) 500 mg BID PO 09/23/16 09:00 10/02/16 09:13 (Miralax) 17 gm DAILY PRN PO 09/23/16 04:30 (Levsin) 0.125 mg Q4H PRN PO 09/23/16 04:45 Patient Own Medication PT OWN MED: FISH OIL D... BID PO 09/23/16 09:00 Hold (D50w (Vial) Inj) 50 ml UNSCH PRN IV 09/23/16 09:45 (Glucagon Inj) 1 mg UNSCH PRN OTHER 09/23/16 09:45 (Apresoline) 25 mg Q8HR PRN PO 09/24/16 13:15 (Haldol) 0.5 mg DAILY@1600 PO 09/27/16 16:00 10/01/16 15:17 (Xanax) 0.5 mg DAILY PO 09/30/16 09:00 10/02/16 09:13 (Lexapro) 5 mg DAILY PO 09/29/16 13:30 10/02/16 09:12 (Pill Splitter) 1 ea UNSCH PRN OTHER 09/29/16 13:30 (Nizoral 2% Shampoo) 1 applic DAILY EXTERNAL 10/01/16 09:00 10/02/16 09:00 (Zithromax) 250 mg DAILY PO 10/02/16 09:00 10/05/16 09:01 10/02/16 09:12 (Augmentin) 875 mg Q12HR PO 10/01/16 15:00 10/08/16 14:59 10/02/16 09:11 A/P Assessment and Plan AMS, Psychotic Dementia, Alzheimer's disease - Managed by psychiatry team Urinary tract infection- start augmentin until october 08. - Escherichia coli. Sensitive to Macrobid. -Macrobid use until the - Encourage by mouth fluid intake. PNA, Monitor for aspiration. on augmentin. Rash, seborrheic dermatitis: start nizoral shampoo. HTN - Continue Procardia and Vasotec. Hydralazine as needed. ASA. - Monitor BP trend. BP is variable. DM 2 - Continue insulin sliding scale, glimepiride - Monitor Accu-Cheks. - Monitor for hypoglycemia Hyperlipidemia - Due to patient's mental status, will weigh in risk benefits of starting statin medication. - Continue with low-cholesterol diet DVT prop ambulatory Discussed with patient, nursing Tacho Goldberg MD Oct 02, 2016 10:36
[2016-10-02] MEDS: HALOPERIDOL 0.5 MG TAB PO SCH (16:00)
[2016-10-02 18:26] VITALS: BP 151/70; PULSE 63; RESP 15; TEMP 96.2; O2SAT 95
[2016-10-03 06:00] VITALS: BP_SYST 151; BP_SYST 178; BP_DIAS 70; BP_DIAS 77; PULSE 63; PULSE 68; RESP 14; RESP 15; TEMP 96.2; TEMP 98; O2SAT 93; O2SAT 95
[2016-10-03] MEDS: INSULIN ASPART SUPPLEMENTAL SCALE SQ SCH ×4 (06:27→21:00)
[2016-10-03] MEDS: RESP: ALBUTEROL 2.5 MG/IPRATROPIUM 0.5 MG NEB (SCH) NEB ×2 (08:00→22:15)
[2016-10-03] MEDS: AZITHROMYCIN 250 MG TAB PO SCH (09:34)
[2016-10-03] MEDS: ASPIRIN 81 MG CHEW TAB CHEW SCH (09:34)
[2016-10-03] MEDS: CALCIUM/VITAMIN D 250 MG/125 U TAB PO SCH ×2 (09:34→21:24)
[2016-10-03] MEDS: ENALAPRIL MALEATE 10 MG TAB PO SCH ×2 (09:34→21:22)
[2016-10-03] MEDS: NIFEdipine 30 MG SUSTAINED RELEASE TAB PO SCH (09:35)
[2016-10-03] MEDS: ESCITALOPRAM OXALATE 10 MG TAB PO SCH (09:35)
[2016-10-03] MEDS: GLIMEPIRIDE 1 MG TAB PO SCH ×2 (09:35→21:22)
[2016-10-03] MEDS: AMOXICILLIN/CLAVULANATE K 875 MG TAB PO SCH ×2 (09:35→21:22)
[2016-10-03] MEDS: VALPROIC ACID 250 MG CAP PO SCH ×2 (09:35→21:22)
[2016-10-03] MEDS: KETOCONAZOLE 2% SHAMPOO 120 ML BTL EXTERNAL SCH (09:39)
[2016-10-03 11:03] VITALS: BP 169/74; PULSE 74
--- NOTE | 2016-10-03 12:35 | HHI.PYPN ---
Subjective Remarks Pt seen and discussed with staff. Pt remains on 1:1 due to aggression but has been more calm. She remains confused and insists that she works for Dr. Goldberg.She made obscene gesture towards RN during rounds. She is compliant with medications. No SI/HI Objective Alert: Yes [place]: Person Mood: Calm Affect: Restricted Memory Intact: Comment (impaired) Hallucinations: Other (none) Delusions: No Delusion Type: Other (none) Suicidal: Ideation (denies) Homicidal: Ideation (denies) Insight/Judgment poor Vitals/IOs Vital Signs Date Time Temp Pulse Resp B/P Pulse Ox O2 Delivery O2 Flow Rate FiO2 10/03/16 11:03 74 169/74 10/03/16 06:00 98.0 14 93 10/02/16 01:00 2.00 Intake and Output 10/02/16 10/02/16 10/03/16 08:00 16:00 00:00 Intake Total 0 ml 2760 ml Balance 0 ml 2760 ml Assessment & Plan Problem List: (1) Dementia with behavioral disturbance ICD Code: F03.91 Assessment & Plan Continue with current tx plan. Estimated LOS: days Justification for Cont. Inpt. risk of decompensation Problem Qualifiers (1) Dementia with behavioral disturbance: Qualified Code: F03.91 - Dementia with behavioral disturbance, unspecified dementia type Cha Rojas MD Oct 03, 2016 12:35
[2016-10-03] MEDS: HALOPERIDOL 0.5 MG TAB PO SCH (16:37)
[2016-10-03 18:00] VITALS: BP_SYST 106; BP_SYST 98; BP_DIAS 55; BP_DIAS 64; PULSE 75; PULSE 81; TEMP 97.2; TEMP 98.5; O2SAT 94; O2SAT 97
[2016-10-04] MEDS: INSULIN ASPART SUPPLEMENTAL SCALE SQ SCH ×4 (06:51→21:00)
[2016-10-04] MEDS: RESP: ALBUTEROL 2.5 MG/IPRATROPIUM 0.5 MG NEB (SCH) NEB (08:00)
[2016-10-04] MEDS: KETOCONAZOLE 2% SHAMPOO 120 ML BTL EXTERNAL SCH (09:00)
[2016-10-04] MEDS: AMOXICILLIN/CLAVULANATE K 875 MG TAB PO SCH ×2 (09:03→21:15)
[2016-10-04] MEDS: CALCIUM/VITAMIN D 250 MG/125 U TAB PO SCH ×2 (09:04→21:16)
[2016-10-04] MEDS: AZITHROMYCIN 250 MG TAB PO SCH (09:04)
[2016-10-04] MEDS: ESCITALOPRAM OXALATE 10 MG TAB PO SCH (09:04)
[2016-10-04] MEDS: ASPIRIN 81 MG CHEW TAB CHEW SCH (09:04)
[2016-10-04] MEDS: GLIMEPIRIDE 1 MG TAB PO SCH ×2 (09:04→21:15)
[2016-10-04] MEDS: VALPROIC ACID 250 MG CAP PO SCH ×2 (09:04→21:15)
[2016-10-04] MEDS: ENALAPRIL MALEATE 10 MG TAB PO SCH ×2 (09:04→21:15)
[2016-10-04] MEDS: NIFEdipine 30 MG SUSTAINED RELEASE TAB PO SCH (09:04)
[2016-10-04 09:09] VITALS: BP 127/72; PULSE 70
--- NOTE | 2016-10-04 11:19 | HHI.PYPN ---
Subjective Remarks Pt seen and discussed with staff. Yesterday kept deliberately sitting self on floor. Today pt has been cooperative and less impulsive. Medication compliant. No SI/HI Objective Alert: Yes [place]: Person Mood: Calm Affect: Restricted Memory Intact: Comment (impaired) Hallucinations: Other (none) Delusions: No Delusion Type: Other (none) Suicidal: Ideation (denies) Homicidal: Ideation (denies) Insight/Judgment poor Vitals/IOs Vital Signs Date Time Temp Pulse Resp B/P Pulse Ox O2 Delivery O2 Flow Rate FiO2 10/04/16 09:09 70 127/72 10/03/16 18:00 97.2 94 10/03/16 06:00 14 10/02/16 01:00 2.00 Intake and Output 10/03/16 10/03/16 10/04/16 08:00 16:00 00:00 Intake Total 240 ml 360 ml 480 ml Balance 240 ml 360 ml 480 ml Assessment & Plan Problem List: (1) Dementia with behavioral disturbance ICD Code: F03.91 Assessment & Plan Continue current tx plan. Estimated LOS: days Justification for Cont. Inpt. risk of decompensation Problem Qualifiers (1) Dementia with behavioral disturbance: Qualified Code: F03.91 - Dementia with behavioral disturbance, unspecified dementia type Cha Rojas MD Oct 04, 2016 11:19
--- NOTE | 2016-10-04 11:44 | HHI.PR ---
Subjective Remarks Coverage for Dr. Goldberg. Follow-up on patient with dementia, hypertension and diabetes. Patient seen and examined today. Patient sitting in the community room. Appears comfortable. She is calm and cooperative. She is somewhat upset states that she had glasses and watch that have been lost since she came to our facility. She denies any complaints of pain. She denies any fever, chills, N/V, shortness of breath, chest pain or abdominal pain. She denies any hematuria or dysuria. Objective Vitals Vital Signs Date Time Temp Pulse Resp B/P Pulse Ox O2 Delivery O2 Flow Rate FiO2 10/04/16 09:09 70 127/72 10/03/16 18:00 97.2 75 106/55 94 I/O 10/03/16 10/03/16 10/03/16 10/04/16 10/04/16 10/04/16 07:00 15:00 23:00 07:00 15:00 23:00 Intake Total 240 ml 360 ml 480 ml Balance 240 ml 360 ml 480 ml Intake Oral 240 ml 0 ml 480 ml Oral Supplement 360 ml # Voids 3 2 1 Imaging Last Impressions Head CT 09/29/16 0000 Signed Impressions: Service Date/Time: Thursday, September 29, 2016 12:24 - CONCLUSION: 1. No acute intracranial abnormality seen. 2. Atrophy and suspected small vessel ischemic change in the white matter. Juancho Lundberg MD Objective Remarks GENERAL: Well-nourished, well-developed patient in NAD. Awake and alert. Calm and cooperative. SKIN: Warm and dry. No rash. HEAD: Normocephalic. Atraumatic. EOMI. MMM. CARDIOVASCULAR: Regular rate and rhythm. S1, S2 noted. No murmur appreciated. RESPIRATORY: No accessory muscle use. Clear to auscultation. Breath sounds equal bilaterally. GASTROINTESTINAL: Abdomen soft, non-tender, nondistended. Normoactive bowel sounds x4. MUSCULOSKELETAL: No obvious deformities. Extremities without clubbing, cyanosis , or edema. NEUROLOGICAL: Awake and alert. Oriented to self and place. Able to move all extremities. No focal neurologic deficits appreciated. Normal speech. Medications and IVs Current Medications Medications (Trade) Dose Ordered Sig/Dayna Route Start Time Stop Time Status Last Admin (Tylenol) 650 mg Q4H PRN PO 09/23/16 03:45 09/30/16 21:51 (Milk Of Magnesia Liq) 30 ml DAILY PRN PO 09/23/16 03:45 (Mag-Al Plus Susp Liq) 30 ml Q6H PRN PO 09/23/16 03:45 (Restoril) 15 mg HS PRN PO 09/23/16 04:00 10/03/16 00:33 (Aspirin Chew) 81 mg DAILY CHEW 09/23/16 09:00 10/04/16 09:04 (Vasotec) 20 mg BID PO 09/23/16 09:00 10/04/16 09:04 (Amaryl) 1 mg BID PO 09/23/16 09:00 10/04/16 09:04 (Procardia Xl) 30 mg DAILY PO 09/23/16 09:00 10/04/16 09:04 (Depakene) 250 mg BID PO 09/23/16 09:00 10/04/16 09:04 (Oscal-D 250-125) 500 mg BID PO 09/23/16 09:00 10/04/16 09:04 (Miralax) 17 gm DAILY PRN PO 09/23/16 04:30 (Levsin) 0.125 mg Q4H PRN PO 09/23/16 04:45 Patient Own Medication PT OWN MED: FISH OIL D... BID PO 09/23/16 09:00 Hold (D50w (Vial) Inj) 50 ml UNSCH PRN IV 09/23/16 09:45 (Glucagon Inj) 1 mg UNSCH PRN OTHER 09/23/16 09:45 (Apresoline) 25 mg Q8HR PRN PO 09/24/16 13:15 (Haldol) 0.5 mg DAILY@1600 PO 09/27/16 16:00 10/03/16 16:37 (Pill Splitter) 1 ea UNSCH PRN OTHER 09/29/16 13:30 (Nizoral 2% Shampoo) 1 applic DAILY EXTERNAL 10/01/16 09:00 10/04/16 09:00 (Zithromax) 250 mg DAILY PO 10/02/16 09:00 10/05/16 09:01 10/04/16 09:04 (Augmentin) 875 mg Q12HR PO 10/01/16 15:00 10/08/16 14:59 10/04/16 09:03 (Lexapro) 10 mg DAILY PO 10/03/16 09:00 10/04/16 09:04 (Benadryl Inj) 25 mg Q12HR PRN IM 10/02/16 12:00 A/P Problem List: (1) Dementia with behavioral disturbance ICD Code: F03.91 Status: Acute (2) Urinary tract infection ICD Code: N39.0 Status: Acute (3) Hypertension ICD Code: I10 Status: Acute (4) Hypokalemia ICD Code: E87.6 Status: Acute (5) Hyperlipidemia ICD Code: E78.5 Status: Acute Assessment and Plan AMS, Psychotic Dementia, Alzheimer's disease - Managed by psychiatry team Urinary tract infection - Continue augmentin until october 08. - Escherichia coli. Sensitive to Macrobid. - Macrobid use until the - Encourage by mouth fluid intake. - patient has no complaints of dysuria today PNA - Continue to monitor for aspiration. - Continue on Augmentin and Azithromycin. - Continue duonebs Rash, seborrheic dermatitis - Continue nizoral shampoo. HTN - Continue Procardia and Vasotec. Hydralazine as needed. - Continue ASA daily. - Monitor BP trend. BP is variable. DM 2 - Continue insulin sliding scale - Continue glimepiride - Monitor Accu-Cheks. BS well controlled. - Monitor for hypoglycemia Hyperlipidemia - Due to patient's mental status, will weigh in risk benefits of starting statin medication. - Continue with low-cholesterol diet DVT prop ambulatory Discussed with patient, nursing staff and Dr. Robledo Problem Qualifiers (1) Dementia with behavioral disturbance: Qualified Code: F03.91 - Dementia with behavioral disturbance, unspecified dementia type (2) Urinary tract infection: Qualified Code: N30.00 - Acute cystitis without hematuria Shauna Murray Oct 04, 2016 11:44
[2016-10-04] MEDS: diphenhydrAMINE HCL 50 MG/ML VIAL IM PRN (12:26)
[2016-10-04] MEDS: HALOPERIDOL 0.5 MG TAB PO SCH (16:07)
[2016-10-05 05:25] VITALS: BP 127/66; PULSE 74; RESP 16; TEMP 98.1; O2SAT 96
[2016-10-05] MEDS: INSULIN ASPART SUPPLEMENTAL SCALE SQ SCH ×4 (06:18→21:00)
--- NOTE | 2016-10-05 08:44 | HHI.PYPN ---
Subjective Remarks Patient seen in the day room with nurse Mary Kay, covering for Dr. stinson, chart review, patient compliant medications. Patient calm pleasant with me staff states no recent behavioral issues. Patient continues diffusely confused. Patient compliant with her medications. For now continue treatment Review of Systems Except as stated in HPI: all other systems reviewed are Neg Objective Alert: Yes [place]: Person Mood: Calm Affect: Restricted Memory Intact: Comment (impaired) Hallucinations: Other (none) Delusions: No Delusion Type: Other (none) Suicidal: Ideation (denies) Homicidal: Ideation (denies) Insight/Judgment Very poor Vitals/IOs Vital Signs Date Time Temp Pulse Resp B/P Pulse Ox O2 Delivery O2 Flow Rate FiO2 10/05/16 05:25 98.1 74 16 127/66 96 10/02/16 01:00 2.00 Intake and Output 10/04/16 10/04/16 10/05/16 08:00 16:00 00:00 Intake Total 480 ml Balance 480 ml Assessment & Plan Problem List: (1) Dementia with behavioral disturbance ICD Code: F03.91 Assessment & Plan Estimated LOS: days patient continues demented and confused, though it appears behaviors are improving, for now continue treatment Justification for Cont. Inpt. At this time patient will decompensate if placed in a lower level of care Discharge Planning To be determined Problem Qualifiers (1) Dementia with behavioral disturbance: Qualified Code: F03.91 - Dementia with behavioral disturbance, unspecified dementia type Juancho Becerra MD Oct 05, 2016 08:44
[2016-10-05] MEDS: AMOXICILLIN/CLAVULANATE K 875 MG TAB PO SCH ×2 (08:49→21:26)
[2016-10-05] MEDS: AZITHROMYCIN 250 MG TAB PO SCH (08:50)
[2016-10-05] MEDS: ESCITALOPRAM OXALATE 10 MG TAB PO SCH (08:50)
[2016-10-05] MEDS: VALPROIC ACID 250 MG CAP PO SCH ×2 (08:50→21:26)
[2016-10-05] MEDS: ENALAPRIL MALEATE 10 MG TAB PO SCH ×2 (08:50→21:26)
[2016-10-05] MEDS: CALCIUM/VITAMIN D 250 MG/125 U TAB PO SCH ×2 (08:50→21:26)
[2016-10-05] MEDS: ASPIRIN 81 MG CHEW TAB CHEW SCH (08:50)
[2016-10-05] MEDS: GLIMEPIRIDE 1 MG TAB PO SCH ×2 (08:50→21:25)
[2016-10-05] MEDS: NIFEdipine 30 MG SUSTAINED RELEASE TAB PO SCH (08:50)
[2016-10-05] MEDS: KETOCONAZOLE 2% SHAMPOO 120 ML BTL EXTERNAL SCH (08:51)
[2016-10-05] MEDS: HALOPERIDOL 0.5 MG TAB PO SCH (15:43)
[2016-10-05] MEDS: diphenhydrAMINE HCL 50 MG/ML VIAL IM PRN (17:21)
[2016-10-05 18:00] VITALS: BP 162/76; PULSE 86; RESP 16; TEMP 98.4; O2SAT 98
[2016-10-06 06:00] VITALS: BP 154/66; PULSE 70; RESP 18; O2SAT 92
[2016-10-06] MEDS: INSULIN ASPART SUPPLEMENTAL SCALE SQ SCH ×3 (06:13→16:00)
[2016-10-06] MEDS: ENALAPRIL MALEATE 10 MG TAB PO SCH (08:39)
[2016-10-06] MEDS: VALPROIC ACID 250 MG CAP PO SCH (08:39)
[2016-10-06] MEDS: CALCIUM/VITAMIN D 250 MG/125 U TAB PO SCH (08:39)
[2016-10-06] MEDS: AMOXICILLIN/CLAVULANATE K 875 MG TAB PO SCH (08:39)
[2016-10-06] MEDS: ASPIRIN 81 MG CHEW TAB CHEW SCH (08:39)
[2016-10-06] MEDS: NIFEdipine 30 MG SUSTAINED RELEASE TAB PO SCH (08:39)
[2016-10-06] MEDS: ESCITALOPRAM OXALATE 10 MG TAB PO SCH (08:39)
[2016-10-06] MEDS: GLIMEPIRIDE 1 MG TAB PO SCH (08:39)
[2016-10-06] MEDS: KETOCONAZOLE 2% SHAMPOO 120 ML BTL EXTERNAL SCH (09:00)
[2016-10-06] MEDS ORDERED: AMOX875T2 PO (12:42)
[2016-10-06] MEDS ORDERED: VALP250 PO (12:42)
[2016-10-06] MEDS ORDERED: ENAL10TA PO (12:42)
[2016-10-06] MEDS ORDERED: HALO0.5T PO (12:42)
[2016-10-06] MEDS ORDERED: ESCI10TA PO (12:42)
[2016-10-06] MEDS ORDERED: KETOC2%T EXTERNAL (12:42)
[2016-10-06] MEDS ORDERED: ASPI81CH25 CHEW (12:42)
[2016-10-06] MEDS ORDERED: CALC250 PO (12:42)
[2016-10-06] MEDS ORDERED: GLIM1 PO (12:42)
[2016-10-06] MEDS ORDERED: NIFE30TA8 PO (12:42)
--- NOTE | 2016-10-06 12:49 | HHI.DS ---
Psychiatry Discharge Summary Inpatient Psychiatric care?: Yes Advance Directive: Yes Reason Not Provided: Provided, patient too lethargic to respond Mental Health AdvanceDirective: Yes (Provided, patient too lethargic to respond ) Name and Number: Provided, patient too lethargic to respond Health Care Proxy: Yes (Provided, patient too lethargic to respond) Name and Phone Number: Provided, patient too lethargic to respond Admission Admission Date Sep 23, 2016 at 00:37 Admission Diagnosis: (1) Dementia with behavioral disturbance ICD Code: F03.91 Brief History Patient is an 80-year-old female admitted to Dr. ruff service under the Piña act. Dr. ruff H&P reviewed and agreed with. Patient seen by me with floor staff in dayroom patient is diffusely confused though pleasant with no significant behavioral problems. Needing occasional interventions by staff. Dr. ruff signed first opinion petition supporting Piña act. I agree. Patient meets criteria for involuntary psychiatric hospitalization under the Piña act. Thus I will cosign second opinion petition supporting Piña act Tobacco Use In Past 30 Days: Refused To Answer Alcohol Use: Never Hospital Course And covering for Dr. ruff was on vacation. Patient also seen by me yesterday. Patient continues demented though no behavioral problems, is compliant with her medications, appears is a bed has been found at [facility] for this lady. At this time patient will roommates criteria for acute inpatient psychiatric hospitalization. Thus patient will be discharged today to [facility] with Rx 1 month follow-up with [facility] medication management mental health services Results Blood Pressure 154 / 66 Vital Signs Date Time Temp Pulse Resp B/P Pulse Ox O2 Delivery O2 Flow Rate FiO2 10/06/16 06:00 70 18 154/66 92 10/05/16 18:00 98.4 Depakote level 65 on 09/24 Summary of Procedures None done Imaging Last Impressions Head CT 09/29/16 0000 Signed Impressions: Service Date/Time: Thursday, September 29, 2016 12:24 - CONCLUSION: 1. No acute intracranial abnormality seen. 2. Atrophy and suspected small vessel ischemic change in the white matter. Juancho Lundberg MD Pending results at discharge: No Medications # of Antipsychotic meds at D/C: 1 Approp Antipsych med options 1 - Minimum of three failed multiple trials of monotherapy. 2 - Documented plan to taper to monotherapy due to previous use of multiple meds OR cross-taper in progress at D/C. 3 - Documentation of augmentation of Clozapine. 4 - Justification other than those listed in allowable values 1-3, document here : Discharge Discharge Date: Oct 06, 2016 Discharge Diagnosis: (1) Dementia with behavioral disturbance Diagnosis: Principal ICD Code: F03.91 Mental Status Exam at Disch Alert diffusely confused white female appears her stated age, sitting in Mary Alice chair, patient's mood is euthymic to somewhat restricted with decreased range intensity of her affect, speech rate and rhythm are slow but is medically tangential circumstantial, and no auditory or visual hallucinations noted, no delusions, insight and judgment is very poor cognition is limited Pt Condition on Discharge: Stable Discharge Disposition: ACLF/SKILLED NURSING Discharge Instructions Diet Instructions: Diabetic Diet Additional Diet Instructions: 1800-calorie Activities you can perform: Regular-No Restrictions Scheduled Appointment: [facility] Discharge Time > 30 minutes Discharge/Advance Care Plan Health Problems: (1) Dementia with behavioral disturbance Goals to promote your health * To prevent worsening of your condition and complications * To maintain your health at the optimal level Directions to meet your goals Take your medications as prescribed Follow your dietary instruction Follow activity as directed Keep your appointments as scheduled Take your immunizations and boosters as scheduled If your symptoms worsen call your PCP, if no PCP go to Urgent Care Center or Emergency Room For 24/ questions related to your inpatient stay or results of tests pending at discharge, please contact Dr. Juancho Becerra at Smoking is Dangerous to Your Health. Avoid second hand smoking Problem Qualifiers (1) Dementia with behavioral disturbance: Qualified Code: F03.91 - Dementia with behavioral disturbance, unspecified dementia type Juancho Becerra MD Oct 06, 2016 12:49
[2016-10-06] MEDS: HALOPERIDOL 0.5 MG TAB PO SCH (16:00)
[2016-10-06 17:41] VITALS: BP 123/57; PULSE 73; O2SAT 95
== END 2016-10-06 17:40 | DRG 56 ==
LOC: NEPD 18:53 → NEDA 09-23 00:37 → H250 09-23 02:30
PROVIDERS: ADMIT Psychiatry & Neurology Psychiatry; ATTEND Psychiatry & Neurology Psychiatry
DX: G30.9 Alzheimer's disease, unspecified (principal); G93.41 Metabolic encephalopathy; J18.9 Pneumonia, unspecified organism; I67.4 Hypertensive encephalopathy; F02.81 Dementia in other diseases classified elsewhere, unspecified severity, with behavioral disturbance; N39.0 Urinary tract infection, site not specified; B96.20 Unspecified Escherichia coli [E. coli] as the cause of diseases classified elsewhere; E11.9 Type 2 diabetes mellitus without complications; Z79.84 Long term (current) use of oral hypoglycemic drugs; I10 Essential (primary) hypertension; Z79.82 Long term (current) use of aspirin; E87.6 Hypokalemia; E03.9 Hypothyroidism, unspecified; E78.5 Hyperlipidemia, unspecified; K59.00 Constipation, unspecified; L21.9 Seborrheic dermatitis, unspecified
CPT/HCPCS: 70450; 80048; 80053; 80061; 80164; 81001; 82306; 82607; 82746; 82948; 83036; 83735; 84439; 84443; 85025; 85652; 86235; 87077; 87086; 87186; 93005; 94664; 96372; J1200; J1630; J1815; J2060

== ENCOUNTER 2016-11-02 10:32 | Inpatient (IN) | payer MEDICARE ==
[2016-11-02] VITALS (16 sets, daily range): BP systolic 144–209; BP diastolic 52–102; PULSE 55–77; RESP 13–19; TEMP 97.3–98.3; O2SAT 96–100
[~2016-11-02] VITALS: Ht 167.6 cm; Wt 70.0 kg
[~2016-11-02 10:32] MED LIST changes: +ALPR0.5T3 PO; +AMOX875T2 PO; -ASPI81 PO; +ASPI81CH CHEW; +ASPI81CH25 CHEW; +CALC250 PO; -CALC600T34 PO; +CALC600T64; -CALC625 PO; +DONE5TAB7 PO; +ENAL10TA PO; +ENAL20TA PO; -ENAL20TA81 PO; +ESCI10TA PO; -FEXO180 PO; +FISH1000; -FISH1000 PO; +GLIM1 PO; +GLIM1TAB PO; +HALO0.5T PO; +HYOS0.128 PO; +KETOC2%T EXTERNAL; -LEVO.075 PO; +LEVO75TA3 PO; +MACR100C2 PO; +NIFE30TA8 PO; -NIFE90TA37 PO; -OMEP20CA5 PO; +POLY17S PO; +VALP250 PO; +VALP250C PO
[2016-11-02] MEDS ORDERED: SODIUM CHLOR 0.9% 1000 ML INJ 1,000 ML IV ONE (10:42)
--- NOTE | 2016-11-02 10:49 | PD ---
HPI Chief Complaint: stroke alert Time Seen by Provider: 10:42 Travel History International Travel<30 days: No Contact w/Intl Traveler<30days: No Traveled to known affect area: No History of Present Illness HPI 80-year-old [facility] patient with history of dementia, presents to the ER brought in by EMS because she had called [facility] nurse stating that she wasn't feeling well, was found unresponsive. She was apparently seen normal about an hour prior to being found. She had a seizure episode while with EMS and was given Ativan. Had agonal respirations and low saturations and bag-valve -mask was initiated. She is a DNR. Stroke alert was initiated per protocol. Modifying Factors: None Associated Signs & Symptoms: Respiratory distress, unresponsive Risk Factors: Elderly PFSH Past Medical History Anxiety: Yes Cancer: No Diabetes: Yes Headaches: No Hypertension: Yes Psychiatric: Yes (Dementia with Behavioral Disturbance) Seizures: No Past Surgical History Hysterectomy: Yes Social History Alcohol Use: No Tobacco Use: No Allergies-Medications (Allergen,Severity, Reaction): Coded Allergies: Flagyl (Verified Allergy, Mild, NAUSEA, 07/14/07) Amlodipine (Verified Allergy, Unknown, 09/22/16) Benzonatate (Verified Allergy, Unknown, 09/22/16) Clonidine (Verified Allergy, Unknown, 09/22/16) Fluticasone (Verified Allergy, Unknown, 09/22/16) Labetalol (Verified Allergy, Unknown, 09/22/16) Propranolol (Verified Allergy, Unknown, 09/22/16) Reported Meds & Prescriptions Reported Meds & Active Scripts Active Depakene (Valproic Acid) 250 Mg Cap 250 Mg PO BID Nifedipine ER 24 HR (Nifedipine) 30 Mg Tab 30 Mg PO DAILY Nizoral Topical Shampoo (Ketoconazole) 2% Sham 1 Applic EXTERNAL DAILY Haloperidol 0.5 Mg Tab 0.5 Mg PO DAILY@1600 Amaryl (Glimepiride) 1 Mg Tab 1 Mg PO BID Escitalopram (Escitalopram Oxalate) 10 Mg Tab 10 Mg PO DAILY Enalapril (Enalapril Maleate) 10 Mg Tab 20 Mg PO 2 BID Oyster Shell 250 mg + Vit D Tb (Calcium/Vitamin D) 250 Mg Calcium (625 Mg)-125 Unit Tablet 500 Mg PO 2 BID Aspirin Low Strength (Aspirin) 81 Mg Chew 81 Mg CHEW DAILY Amoxicillin-Clavulanate 875-125 mg Tab 875 Mg PO Q12HR Macrobid (Nitrofurantoin Monoh/Nitrofur Macro) 100 Mg Cap 100 Mg PO BID 7 Days Reported Valproic Acid 250 Mg Cap 250 Mg PO BID Polyethylene Glycol 3350 Powder (Polyethylene Glycol) 17 Gm Pow 17 Gm PO DIRECTED Nifedipine ER 24 HR (Nifedipine) 30 Mg Tab PO DAILY Levothyroxine (Levothyroxine Sodium) 75 Mcg Tab 75 Mcg PO DAILY Hyoscyamine (Hyoscyamine Sulfate) 0.125 Mg Tab 0.125 Mg PO Q4H Glimepiride 1 Mg Tab 1 Mg PO BID Take with breakfast or first main meal Fish Oil ([place]-3 Fatty Acids) 1,000 Mg Cap BID Enalapril (Enalapril Maleate) 20 Mg Tab 20 Mg PO BID Donepezil 5 Mg Tab 5 Mg PO HS Calcium 600 + Vit D Tablet (Calcium Carbonate/Vitamin D3) 1 Each Tablet 1 Tab Aspirin 81 Mg Chew 81 Mg CHEW DAILY Alprazolam 0.5 Mg Tab 0.5 Mg PO BID Review of Systems ROS Limitations: Clinical Condition, Altered Mental Status Physical Exam Narrative GENERAL: Well-developed elderly white female patient currently in significant respiratory distress, agonal respirations, [id number] in progress. She is GCS 3, unresponsive to pain. SKIN: Focused skin assessment warm/dry. HEAD: Atraumatic. Normocephalic. EYES: Pupils equal and round. No scleral icterus. No injection or drainage. ENT: No nasal bleeding or discharge. Mucous membranes pink and moist. NECK: Trachea midline. No JVD. CARDIOVASCULAR: Regular rate and rhythm. No murmur appreciated. RESPIRATORY: No accessory muscle use. Clear to auscultation. Breath sounds equal bilaterally. GASTROINTESTINAL: Abdomen soft, non-tender, nondistended. Hepatic and splenic margins not palpable. MUSCULOSKELETAL: No obvious deformities. No clubbing. No cyanosis. No edema. NEUROLOGICAL: Unresponsive. No movement to pain. GCS 3. Unable to follow commands. Data Data Last Documented VS Vital Signs Date Time Temp Pulse Resp B/P Pulse Ox O2 Delivery O2 Flow Rate FiO2 11/02/16 10:32 97.3 72 19 206/90 100 Orders Diet Npo (11/02/16 Lunch) Activity Bed Rest (11/02/16 ) Electrocardiogram (11/02/16 ) I-Stat Creatinine (11/02/16 10:42) I-Stat Profile (11/02/16 10:42) Prothrombin Time / Inr (Pt) (11/02/16 10:42) Act Partial Throm Time (Ptt) (11/02/16 10:42) Complete Blood Count With Diff (11/02/16 10:42) Fibrinogen (11/02/16 10:42) Creatine Kinase (Cpk) (11/02/16 10:42) Troponin I (11/02/16 10:42) Ua Includes Microscopic (11/02/16 10:42) Drug Screen, Random Urine (11/02/16 10:42) Type And Screen (11/02/16 10:42) Ct Brain W/O Iv Contrast(Rout) (11/02/16 ) Consult Neurology (11/02/16 ) Blood Glucose (11/02/16 10:42) Ecg Monitoring (11/02/16 10:42) Neuro Checks Q2HX12,Q4H (11/02/16 10:42) Nursing Bedside Swallow Assess .ONCE (11/02/16 10:42) Iv Access Insert/Monitor (11/02/16 10:42) NPO (11/02/16 10:42) Oximetry (11/02/16 10:42) Oxygen Administration (11/02/16 10:42) Sodium Chlor 0.9% 1000 Ml Inj (Ns 1000 M (11/02/16 10:42) Resp Oxygen Dominguez C Titrat 1-4 L (11/02/16 10:42) Cath For Specimen (11/02/16 10:42) Aspirin Supp (Aspirin Supp) (11/02/16 11:00) (Hub Use Only)Inp Phy Cons/Ref (11/02/16 ) Labs Laboratory Tests Test 11/02/16 10:40 White Blood Count 9.4 TH/MM3 Red Blood Count 3.88 MIL/MM3 Hemoglobin 13.2 GM/DL Bedside Hemoglobin 13.6 G/DL Hematocrit 38.6 % Bedside Hematocrit 40.0 % Mean Corpuscular Volume 99.5 FL Mean Corpuscular Hemoglobin 34.0 PG Mean Corpuscular Hemoglobin 34.2 % Concent Red Cell Distribution Width 14.3 % Platelet Count 235 TH/MM3 Mean Platelet Volume 8.8 FL Neutrophils (%) (Auto) 69.0 % Lymphocytes (%) (Auto) 22.3 % Monocytes (%) (Auto) 7.8 % Eosinophils (%) (Auto) 0.5 % Basophils (%) (Auto) 0.4 % Neutrophils # (Auto) 6.5 TH/MM3 Lymphocytes # (Auto) 2.1 TH/MM3 Monocytes # (Auto) 0.7 TH/MM3 Eosinophils # (Auto) 0.0 TH/MM3 Basophils # (Auto) 0.0 TH/MM3 CBC Comment DIFF FINAL Differential Comment Bedside Sodium 137 MMOL/L Bedside Potassium 4.0 MMOL/L Bedside Chloride 101 MMOL/L Bedside Blood Urea Nitrogen 23 MG/DL Bedside Creatinine 1.0 MG/DL Bedside Glucose 184 MG/DL [facility] Medical Screen Exam Complete: Yes Emergency Medical Condition: Yes Medical Record Reviewed: Yes Differential Diagnosis Seizure versus ICH versus CVA/stroke versus metabolic issues Narrative Course Laboratory Tests Test 11/02/16 10:40 Red Blood Count 3.88 MIL/MM3 (4.00-5.30) Bedside Sodium 137 MMOL/L (138-146) Bedside Glucose 184 MG/DL (60-95) Last [address] 11/02/16 0000 Signed Impressions: Service Date/Time: Wednesday, November 02, 2016 10:46 - CONCLUSION: 1. Atrophy and chronic small vessel ischemic change. 2. No acute intracranial abnormality. Jeffrey Peres Jr., MD Case was discussed with neurology, Dr. Zelaya, who states that due to the fact that the patient had seizures and dementia, is not a good TPA candidate. At this point, patient had a nasal cannula place and is put on a nonrebreather and is satting and 100%. CAT scan did not show any signs of acute intercranial processes and as per neurology direction, she has been given NC aspirin. Plan would be to admit her for further treatment and observation and further imaging. Case was discussed with Dr. Kirkland for admission. Stroke Alert NIHSS NIH Stroke Scale Result: 38 NIHSS Time Completed: 10:55 Thrombolytic Contraindications Contraindications: Uncontrolled HTN at event Contraindications Comment: Seizure and onset, dementia, DNR Diagnosis Diagnosis: Primary Impression: Stroke Additional Impression: Seizure Admitting Physician Requests: Admit Ingrid Mccarthy MD Nov 02, 2016 10:49
[2016-11-02 10:52] LABS: I-STAT SODIUM 137 MMOL/L (138-146)
[2016-11-02 10:53] LABS: AUTOMATED NEUTROPHIL # 6.5 TH/MM3 (1.8-7.7); BASOPHIL % 0.4 % (0.0-2.0); EOSINOPHIL % 0.5 % (0.0-4.0); HEMATOCRIT 38.6 % (35.0-46.0); HEMO FLAGS DIFF FINAL; LYMPH % 22.3 % (9.0-44.0); LYMPHOCYTE # 2.1 TH/MM3 (1.0-4.8); MEAN CELL VOLUME 99.5 FL (80.0-100.0); MEAN CORPUSCULAR HGB CONC 34.2 % (32.0-36.0); MONO % 7.8 % (0.0-8.0); PLATELET COUNT 235 TH/MM3 (150-450); RED BLOOD COUNT 3.88 MIL/MM3 (4.00-5.30); RED CELL DISTRIBUTION WIDTH 14.3 % (11.6-17.2); WHITE BLOOD COUNT 9.4 TH/MM3 (4.0-11.0)
--- NOTE | 2016-11-02 10:57 | RADRPT ---
EXAM DATE/TIME: 11/02/2016 10:46 [facility] COMPARISON: CT BRAIN W/O CONTRAST, September 29, 2016, 12:24. INDICATIONS : Stroke alert; found unresponsive one and a half hour ago. RADIATION DOSE: 33.31 CTDIvol (mGy) This report was called by Dr Peres to Dr Mccarthy at 1053 MEDICAL HISTORY : Seizures. Dementia. SURGICAL HISTORY : None. ENCOUNTER: Initial ACUITY: 1 day PAIN SCALE: Non-responsive LOCATION: cranial TECHNIQUE: Multiple contiguous axial images were obtained of the head. Using automated exposure control and adj ustment of the mA and/or kV according to patient size, radiation dose was kept as low as reasonably a chievable to obtain optimal diagnostic quality images. DICOM format image data is available electro nically for review and comparison. FINDINGS: CEREBRUM: Periventricular low attenuation change is seen involving both cerebral hemispheres. Atrophy. The vent ricles are normal for age. No evidence of midline shift, mass lesion, hemorrhage or acute infarction . No extra-axial fluid collections are seen. POSTERIOR FOSSA: The cerebellum and brainstem are intact. The 4th ventricle is midline. The cerebellopontine angle i s unremarkable. EXTRACRANIAL: The visualized portion of the orbits is intact. SKULL: The calvaria is intact. No evidence of skull fracture. CONCLUSION: 1. Atrophy and chronic small vessel ischemic change. 2. No acute intracranial abnormality. Jeffrey Peres Jr., MD on November 02, 2016 at 10:51 Board Certified Radiologist. This report was verified electronically.
[2016-11-02] MEDS ORDERED: ASPIRIN 300 MG SUPP RECTAL ONE (11:00)
[2016-11-02 11:04] LABS: APTT (PATIENT) 22.6 SEC (24.3-30.1); PROTHROMBIN TIME - PATIENT 10.7 SEC (9.8-11.6)
[2016-11-02 11:32] LABS: CREATINE KINASE 79 U/L (26-192)
[2016-11-02 12:15] LABS: AMPHETAMINE, URINE NEG (NEG); BARBITURATES, URINE NEG (NEG); COCAINE, URINE NEG (NEG)
[2016-11-02] MEDS ORDERED: NAME10TA PO (12:20)
[2016-11-02] MEDS ORDERED: METF500T PO (12:20)
[2016-11-02] MEDS ORDERED: SENN8.6T8 PO (12:20)
[2016-11-02] MEDS ORDERED: VALP250C PO (12:20)
[2016-11-02] MEDS ORDERED: FENT12DI T-DERMAL (12:20)
[2016-11-02 12:28] LABS: BACTERIA, URINE MOD /hpf; BLOOD, URINE NEG (NEG); GLUCOSE,URINE NEG (NEG); KETONE, URINE TRACE mg/dL (NEG); NITRITE,URINE NEG (NEG); PH, URINE 5.5 (5.0-8.5); URINE COLOR YELLOW (YELLW/STRAW)
--- NOTE | 2016-11-02 13:28 | MB ---
cc: JAROCHO AMBROSE M.D. DATE OF CONSULTATION 11/02/2016 REASON FOR CONSULTATION She is an 80-year-old seen in the emergency room. She came in as a Stroke Alert. I spoke to the emergency room physician. HISTORY OF PRESENT ILLNESS The patient came in an hour so after she was apparently noted to be baseline. It appears that she pressed the button for help in a nursing facility as she was not feeling well. The nurse came and saw the patient having a prolonged seizure. She was treated with Ativan. She has a history of seizures and she takes Depakote. It appears that the dose was recently adjusted from 250 mg twice a day to three times a day. There is a history of dementia and she appears to be on Namenda and Aricept. OTHER MEDICATIONS 1. Glimepiride. 2. Nifedipine. 3. Citalopram. 4. Baby aspirin. 5. Alprazolam. 6. Enalapril. NEUROLOGICAL EXAMINATION On exam the patient he is still poorly responsive but with stimulation she started mumbling and withdrawing all four limbs. She appeared a bit restless when she was stimulated but mostly she was quiet. The pupils were about the same size. Eyes seemed to be in primary position. No obvious facial symmetry. Reflexes are diminished but present at the elbows and knees, trace versus absent at the ankles. Plantar responses flexor. IMAGING STUDIES The CT brain shows atrophy and no acute abnormality. LABORATORY DATA The CBC is normal. Toxicology negative. Chemistry with sodium 137, glucose 184, CPK 79, BUN and creatinine normal. ASSESSMENT Probable seizure recurrence as the primary diagnosis. The patient came in as a Stroke Alert and taking into consideration discussed the diagnosis, the history of dementia and I did not feel we should pursue the possibility of t-PA despite negative CTA brain with the exam being nonfocal, just showed global neurological loss, also against cerebrovascular event, though this cannot be ruled out. Her blood pressure was markedly elevated to 220 as per the emergency room physician. PLAN The patient is to going to be given Keppra. We will check a valproic acid level and we will monitor the patient closely. Depending upon her status within the next few hours, then we will consider an MRI brain. We will obtain an EEG in the meantime. Thank you for asking us to assist in her care. MD CHAD Mcclure/CELESTE /12:49 PM /1:22 PM
[2016-11-02] MEDS ORDERED: levETIRAcetam 1000 MG INJ 100 ML IV ONE (13:30)
[2016-11-02] MEDS ORDERED: DEXT 5%-NACL 0.9% 1000 ML INJ 1,000 ML IV SCH (15:00)
[2016-11-02] MEDS ORDERED: LORazepam 2 MG/ML VIAL IV PRN (16:00)
[2016-11-02] MEDS ORDERED: levETIRAcetam 500 MG TAB PO SCH (19:00)
[2016-11-02] MEDS ORDERED: levETIRAcetam 500MG PREMIX INJ 100 ML IV PRN (19:00)
[2016-11-02] MEDS: DEXT 5%-NACL 0.9% 1000 ML INJ 1,000 ML IV SCH (22:15)
[2016-11-02] MEDS: METOPROLOL TARTRATE 5 MG/5 ML VIAL IV PUSH PRN (22:22)
[2016-11-02] MEDS ORDERED: LACTULOSE SYRUP 20 GM/30 ML CUP PO PRN (22:45)
[2016-11-02] MEDS ORDERED: SENNOSIDES 8.6 MG TAB PO PRN (22:45)
[2016-11-02] MEDS ORDERED: BISACODYL 10 MG SUPP RECTAL PRN (22:45)
[2016-11-02] MEDS ORDERED: ONDANSETRON HCL 4 MG/2 ML VIAL IVP PRN (22:45)
[2016-11-02] MEDS ORDERED: NALOXONE HCL 0.4 MG/ML AMP IV PRN (22:45)
[2016-11-02] MEDS ORDERED: SODIUM CHLORIDE 0.9% FLUSH 10 ML FLUSH IV FLUSH PRN (22:45)
[2016-11-02] MEDS ORDERED: MAGNESIUM HYDROXIDE SUSP 30 ML CUP PO PRN (22:45)
[2016-11-02] MEDS ORDERED: GLUCAGON 1 MG/ML VIAL OTHER PRN (23:00)
[2016-11-02] MEDS ORDERED: DEXTROSE 50% IN WATER 50 ML VIAL(D50) IV PRN (23:00)
[2016-11-03] VITALS (14 sets, daily range): BP systolic 55–220; BP diastolic 8–96; PULSE 3–74; RESP 16–20; TEMP 97.1–99.2; O2SAT 97–100
[2016-11-03] MEDS: levETIRAcetam 500MG PREMIX INJ 100 ML IV SCH ×2 (01:04→13:57)
[2016-11-03] MEDS: INSULIN ASPART SUPPLEMENTAL SCALE SQ SCH ×4 (06:07→20:01)
--- NOTE | 2016-11-03 07:19 | MG ---
cc: BEAR DHILLON MD Lab No: [id number] Date: 11/02/2016 Age: 80 Sex: F Race: ___ DATE OF 1935 INDICATIONS An 80-year-old not feeling well. 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 DESCRIPTION 3-5 Hz generalized activity 20-50 microvolts, periods of sleep state. Moderate intermittent and continuous high-frequency artifact primarily in the right hemispheric channels, possible pop electrode artifact at P4. No driving with photic stimulation as well as small sharp transients at P3, epoch 19, however, a lot of artifact occurring at that time. Single lead with premature contraction sinus rhythm. INTERPRETATION Moderate myogenic artifact, probable underlying mild to moderate encephalopathy versus sleep state, poorly formed sleep architecture. No active seizure activity. Clinical correlation. MD WILMER Loya/DJL /8:24 PM /7:15 AM
--- NOTE | 2016-11-03 09:33 | MH ---
cc: ELEONORA COTTER MD DATE OF ADMISSION 11/02/2016 CHIEF COMPLAINT Altered mental status HISTORY OF PRESENT ILLNESS Leidy Meade is an 80 year-old female. She lives at [facility]. The patient was found unresponsive by the staff at the assisted living facility. EMS was called and she apparently had a seizure, agonal respirations and hypoxia. She was transferred to [place] and stroke alert was called. Dr. Zelaya evaluated the patient in the emergency room and felt her to not be a good tPA candidate. The patient was placed on non-rebreather. The case was discussed with Dr. Kirkland and then they realized she was my outpatient and called me for medical admission. The patient was started on Keppra and given rectal aspirin. The patient demonstrated severe hypertension and was given IV Enalapril. The patient had no further seizures. The patient has been stable since. Nursing was noted that she appeared to be obtunded. LABS WBC is 9.4, hemoglobin 13.2. Sodium 137, glucose 184, INR 1.0. Depakote level 62. Urinalysis shows trace ketones and trace leukocyte esterase with moderate bacteria. IMAGING Head CT shows atrophy and chronic small vessel ischemic changes. No acute intracranial abnormality. PAST MEDICAL HISTORY 1. Diabetes 2. Hypertension 3. Dementia with psychosis SURGICAL HISTORY Hysterectomy SOCIAL HISTORY No alcohol, tobacco or illicit drug usage. She lives at [facility]. Her , who had dementia, recently passed. ALLERGIES FLAGYL, AMLODIPINE, BENZONATATE, CLONIDINE, FLUTICASONE, LABETALOL, PROPRANOLOL. MEDICATIONS 1. Depakote 2. Nifedipine 3. Nizoral 4. Haldol 5. Amaryl 6. Lexapro 7. Enalapril 8. Calcium with vitamin D 9. Aspirin 81 mg 10. Amoxicillin 11. 12. Macrobid 13. MiraLax 14. Levothyroxine 75 mcg 15. Fish oil 16. Donepezil 17. Alprazolam 0.5 twice a day REVIEW OF SYSTEMS Had one episode of seizure with resultant lethargy and hypoxia. Negative 14-point review of systems otherwise except as noted in the history and physical. PHYSICAL EXAM VITAL SIGNS: Temperature 97.4, pulse 65, respirations 20, blood pressure 182/65 and O2 is 98% on venturi mask. GENERAL: This is a lethargic elderly female laying flat. She moans to sternal rub. HEAD, EYES, EARS, NOSE, AND THROAT: Oropharynx is clear. NECK: Carotids are clear. No JVD. CHEST: Clear. No wheezes, rales, crackles or coughing. CARDIOVASCULAR: Regular rate and rhythm. No murmurs, rubs, clicks or gallops. ABDOMEN: Soft and nontender. No rebound. No guarding. EXTREMITIES: No edema. SKIN: Clear. NEUROLOGIC: A&O times 0. She is unable to follow commands. She moves all of her extremities randomly and withdrawals each extremity to painful stimuli. Deep tendon reflexes are 2+. Toes are upgoing. ASSESSMENT 1. Altered mental status 2. Seizure 3. Respiratory insufficiency 4. Urgent hypertension 5. Diabetes 6. Personality disorder NOS 7. Dementia with psychosis 8. Hyponatremia PLAN 1. Pathology consulted and has already seen the patient. 2. EEG is ordered. 3. Check BMP and CBC. 4. NPO 5. D5 normal saline 6. Keppra 500 mg IV q12h 7. Enalapril as needed systolic greater than 190. 8. Lopressor as needed urgent hypertension 9. Sliding scale insulin 10. Telemetry 11. SCD's 12. IRINA's 13. MRI of the brain 14. Inpatient admission for the above diagnosis. The patient has a poor prognosis and hopefully she will respond to treatment. She has had a significant history of dementia with psychosis and her baseline at the assisted living facility was episodes of severe agitation and combativeness. I expect we will likely need to get palliative care involved. If she does not recover from her post-ictal state, she will likely need longterm facility placement. Expect at least three to four days of inpatient stay. Eleonora Cotter MD RP/KAPIL /9:06 AM /9:17 AM
[2016-11-03] MEDS: ENALAPRILAT 2.5 MG/2 ML VIAL IV PRN ×2 (09:58→16:29)
[2016-11-03] MEDS: SODIUM CHLORIDE 0.9% FLUSH 10 ML FLUSH IV FLUSH SCH ×2 (09:59→21:00)
[2016-11-03 10:45] LABS: AUTOMATED NEUTROPHIL # 5.8 TH/MM3 (1.8-7.7); BASOPHIL # 0.1 TH/MM3 (0-0.2); BASOPHIL % 0.8 % (0.0-2.0); EOSINOPHIL # 0.1 TH/MM3 (0-0.4); EOSINOPHIL % 1.7 % (0.0-4.0); HEMATOCRIT 38.7 % (35.0-46.0); HEMO FLAGS DIFF FINAL; LYMPH % 13.4 % (9.0-44.0); LYMPHOCYTE # 1.1 TH/MM3 (1.0-4.8); MEAN CELL VOLUME 98.4 FL (80.0-100.0); MEAN CORPUSCULAR HEMOGLOBIN 32.5 PG (27.0-34.0); MEAN CORPUSCULAR HGB CONC 33.1 % (32.0-36.0); MONO % 11.6 % (0.0-8.0); NEUT % 72.5 % (16.0-70.0); PLATELET COUNT 167 TH/MM3 (150-450); RED BLOOD COUNT 3.93 MIL/MM3 (4.00-5.30); RED CELL DISTRIBUTION WIDTH 14.2 % (11.6-17.2)
[2016-11-03 11:15] LABS: BICARBONATE 27.8 MEQ/L (21.0-32.0); POTASSIUM 3.9 MEQ/L (3.5-5.1)
--- NOTE | 2016-11-03 12:10 | EKG ---
Date Performed: 11/02/2016 Time Performed: 11:16:34 PTAGE: 80 years EKG: Sinus rhythm MODERATE VOLTAGE CRITERIA FOR LVH, CONSIDER NORMAL VARIANT NONSPECIFIC ST & T-WAVE ABNORMALITY HARRIET VALDES ECG Compared to prior tracing no significant change DOCTOR: Bong Robins Interpretating Date/Time 11/03/2016 12:08:25
[2016-11-03] MEDS: METOPROLOL TARTRATE 5 MG/5 ML VIAL IV PUSH PRN (12:52)
[2016-11-03] MEDS ORDERED: LABETALOL INJ 500 MG in SODIUM CHLORIDE 0.9% INJ 150 ML IV SCH (14:15)
[2016-11-03] MEDS ORDERED: NITROGLYCERIN-DEXTROSE 5% 250 ML for hypertension IV SCH (15:30)
[2016-11-03] MEDS ORDERED: METOPROLOL TARTRATE 5 MG/5 ML VIAL IV PUSH PRN (15:30)
[2016-11-03] MEDS: hydrALAZINE HCL 50 MG TAB PO SCH ×2 (15:45→22:00)
--- NOTE | 2016-11-03 17:21 | MB ---
cc: SIAIAH HYMAN MD DATE OF CONSULTATION 11/03/2016 REASON FOR CONSULTATION Hypertension, stroke HISTORY OF PRESENT ILLNESS An 80-year-old female with prior history of dementia, diabetes, hypertension who presented to the emergency department after being found unresponsive by the staff at the assisted living facility. The entire history was obtained from chart records as the patient is on a non-rebreather and not responding appropriately. She was transferred to [place] and stroke alert was called. Neurology was emergently consulted and felt the patient was not a good t-PA candidate. There were no focal signs of stroke, although her blood pressure at one point was greater than 200. She was given IV enalapril with some response. We were consulted for recommendation regarding hypertension. PAST MEDICAL HISTORY 1. Diabetes, 2. Hypertension, 3. Dementia with psychosis ALLERGIES FLAGYL AMLODIPINE BENZOATE CLONIDINE FLUCONAZOLE LABETALOL PROPRANOLOL MEDICATIONS 1. Depakote 2. Nifedipine. 3. Nizoral 4. Haldol 5. Amaryl 6. Lexapro 7. Enalapril 8. Calcium, 9. Aspirin, 10. Macrobid, 11. MiraLax 12. Levothyroxine 13. Fish oil 14. 15. Alprazolam. SOCIAL HISTORY Denies any alcohol, tobacco or drug use. FAMILY HISTORY Denies any family history of early coronary or sudden cardiac . REVIEW OF SYSTEMS Review of systems was not obtained given the patient's current mental status. PHYSICAL EXAMINATION VITAL SIGNS: Temperature 98, pulse 63, blood pressure 212/90 mmHg. GENERAL: The patient appears in no acute distress. HEENT: Pupils reactive to light and accommodation. Extraocular movements are intact. No elevation in jugular venous distension. No thyromegaly, no lymphadenopathy, no carotid bruits. LUNGS: Clear to auscultation bilaterally CARDIOVASCULAR: Regular rate and rhythm without murmurs, rubs or gallops. ABDOMEN: Nontender, nondistended. Good bowel sounds. No hepatosplenomegaly. EXTREMITIES: No clubbing, cyanosis or edema. Good peripheral pulses. NEUROLOGIC: Cranial nerves intact. Motor sensory is intact. LABORATORY DATA WBC 8, hemoglobin 12.8, platelet count 167. Sodium 141, potassium 3.9, BUN 14, creatinine 0.78, INR is one. ASSESSMENT 1. Hypertension 2. Loss of consciousness/unresponsive. 3. Mental status changes. PLAN It is not entirely clear what the patient's baseline is. She is described as having dementia. She is not following any specific commands here, although she is protecting her airway. It sounds like she is probably going to be more conservative route based on the notes from Dr. Goldberg. Since systolic blood pressures is currently greater than 200 mmHg systolic, we will add hydralazine [id number] in addition to IV intermittent dosing. She does have allergies to amlodipine, clonidine and labetalol and propranolol. May consider reinitiation of her enalapril. I want to confirm with neurology if they wanted any permissive hypertension with her presentation listed as stroke. At this point, she is on 50 mg q.8 h or hydralazine. Blood pressure is still not controlled, can titrate that up to 100 mg q.8 h. We will sign off. If any further assistance is needed, feel free to give us a call back. MD AKILAH Jim/ /3:50 PM /5:01 PM
--- NOTE | 2016-11-03 19:08 | RADRPT ---
EXAM DATE/TIME: 11/03/2016 18:44 [facility] COMPARISON: No previous studies available for comparison. INDICATIONS : Stroke. MEDICAL HISTORY : Hypertension. Seizures. SURGICAL HISTORY : Thyroidectomy. ENCOUNTER: Subsequent ACUITY: 1 day PAIN SCORE: Nonresponsive. LOCATION: TECHNIQUE: Multiplanar, multisequence MRI of the brain was performed without contrast. FINDINGS: CEREBRUM: Cerebral atrophy. Small occipital infarcts. Small area of high flair abnormality in the left frontal parietal cortex consistent with tiny infarct. The ventricles are normal for age. No evidence of midl ine shift, mass lesion, hemorrhage or acute infarction. No extraaxial fluid collections are seen. T he pituitary gland and suprasellar cistern are normal in configuration. WHITE MATTER: Extensive areas of high T2 bright signal abnormalities are seen in the white matter. POSTERIOR FOSSA: The cerebellum and brainstem are intact. The 4th ventricle is midline. The cerebellopontine angle is unremarkable. The cerebellar tonsils are normal in position. DIFFUSION IMAGING: Tiny areas of restricted diffusion are seen in left frontal parietal lobe consistent with acute infar ction. EXTRACRANIAL: The visualized portions of the orbits and paranasal sinuses are unremarkable. CONCLUSION: 1. Tiny infarct left frontal parietal lobe. 2. 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 3. Remote occipital infarcts. Peter Clark MD on November 03, 2016 at 19:05 Board Certified Radiologist. This report was verified electronically.
[2016-11-03] MEDS: hydrALAZINE HCL 20 MG/ML VIAL IV PUSH PRN (21:11)
--- NOTE | 2016-11-03 21:37 | HHI.PR ---
Review/Management Daily Summary 11/03 seen in [facility] am when she was asleep and poorly awakened no apparent neuro change eeg brsults seen mri results seen, possible tiny acute left frontal infarct, disproportional to presentation and current status ?seizure vs tiny infarct left frontal check carotid us i agree with blood pressure care, lowering to more reasonable levels dementia and seizure , vpa level ok, also continue keppra Subjective Subjective Comments No new events reported by staff Active Medications Current Medications Medications (Trade) Dose Ordered Sig/Dayna Route Start Time Stop Time Status Last Admin (Ativan Inj) 0.5 mg Q8H PRN IV 11/02/16 16:00 Enalaprilat 2.5 mg 2.5 mg Q6H PRN IV 11/02/16 17:15 11/03/16 16:29 (D5W-NS 1000 ml Inj) 1,000 ml @ 30 mls/hr Q24H IV 11/02/16 22:15 11/02/16 22:15 (NS Flush) 2 ml UNSCH PRN IV FLUSH 11/02/16 22:45 (NS Flush) 2 ml BID IV FLUSH 11/03/16 09:00 11/03/16 21:00 (Zofran Inj) 4 mg Q6H PRN IVP 11/02/16 22:45 (Narcan Inj) 0.4 mg UNSCH PRN IV 11/02/16 22:45 (Milk Of Magnesia Liq) 30 ml Q12H PRN PO 11/02/16 22:45 (Senokot) 17.2 mg Q12H PRN PO 11/02/16 22:45 (Dulcolax Supp) 10 mg DAILY PRN RECTAL 11/02/16 22:45 (Lactulose Liq) 30 ml DAILY PRN PO 11/02/16 22:45 (D50w (Vial) Inj) 50 ml UNSCH PRN IV 11/02/16 23:00 Glucagon 1 mg 1 mg UNSCH PRN OTHER 11/02/16 23:00 Levetriacetam 100 ml @ 400 mls/hr Q12H IV 11/03/16 01:00 11/03/16 13:57 (Nitroglycerin-Dextrose Inj) 250 ml @ 0 mls/hr TITRATE IV 11/03/16 15:30 (Lopressor Inj) 5 mg Q4H PRN IV PUSH 11/03/16 15:30 (Apresoline) 50 mg Q8HR PO 11/03/16 15:45 (Apresoline Inj) 20 mg Q2HR PRN IV PUSH 11/03/16 15:45 11/03/16 21:11 Allergies Allergies Coded Allergies Flagyl (Verified Allergy, Mild, NAUSEA, 07/14/07) Amlodipine (Verified Allergy, Unknown, 09/22/16) Benzonatate (Verified Allergy, Unknown, 09/22/16) Clonidine (Verified Allergy, Unknown, 09/22/16) Fluticasone (Verified Allergy, Unknown, 09/22/16) Labetalol (Verified Allergy, Unknown, 09/22/16) Propranolol (Verified Allergy, Unknown, 09/22/16) Exam I&O / VS 11/02/16 11/02/16 11/03/16 14:59 22:59 06:59 Output Total 900 ml Balance -900 ml Output Urine Total 900 ml # Voids 1 Vital Signs Date Time Temp Pulse Resp B/P Pulse Ox O2 Delivery O2 Flow Rate FiO2 11/03/16 21:15 98.4 3 18 176/76 99 11/03/16 20:35 99.2 66 18 217/88 100 11/03/16 16:35 98.9 70 16 213/96 99 11/03/16 15:29 74 195/95 11/03/16 13:56 212/90 11/03/16 11:30 98.1 63 16 209/95 97 11/03/16 09:00 98.0 63 16 191/83 97 11/03/16 08:00 61 11/03/16 04:00 98.0 65 20 182/8 98 11/03/16 00:00 97.4 52 17 102/51 97 11/02/16 23:28 96 Venturi Mask 50 11/02/16 22:53 152/52 11/02/16 22:35 55 182/81 Objective Radiology Results Last 48 hours Impressions Brain MRI 11/03/16 0000 Signed Impressions: Service Date/Time: Thursday, November 03, 2016 18:44 - CONCLUSION: 1. Tiny infarct left frontal parietal lobe. 2. 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 3. Remote occipital infarcts. Peter Clark MD Head CT 11/02/16 0000 Signed Impressions: Service Date/Time: Wednesday, November 02, 2016 10:46 - CONCLUSION: 1. Atrophy and chronic small vessel ischemic change. 2. No acute intracranial abnormality. Jeffrey Peres Jr., MD Micro and Labs Laboratory Tests Test 11/03/16 09:28 White Blood Count 8.0 Red Blood Count 3.93 Hemoglobin 12.8 Hematocrit 38.7 Mean Corpuscular Volume 98.4 Mean Corpuscular Hemoglobin 32.5 Mean Corpuscular Hemoglobin 33.1 Concent Red Cell Distribution Width 14.2 Platelet Count 167 Mean Platelet Volume 9.8 Neutrophils (%) (Auto) 72.5 Lymphocytes (%) (Auto) 13.4 Monocytes (%) (Auto) 11.6 Eosinophils (%) (Auto) 1.7 Basophils (%) (Auto) 0.8 Neutrophils # (Auto) 5.8 Lymphocytes # (Auto) 1.1 Monocytes # (Auto) 0.9 Eosinophils # (Auto) 0.1 Basophils # (Auto) 0.1 CBC Comment DIFF FINAL Differential Comment Hematology Comments Sodium Level 141 Potassium Level 3.9 Chloride Level 104 Carbon Dioxide Level 27.8 Anion Gap 9 Blood Urea Nitrogen 14 Creatinine 0.78 Estimat Glomerular Filtration 71 Rate Random Glucose 83 Calcium Level 8.8 Chucky Zelaya MD Nov 03, 2016 21:37
--- NOTE | 2016-11-03 22:57 | RADRPT ---
EXAM DATE/TIME: 11/03/2016 22:23 [facility] COMPARISON: No previous studies available for comparison. INDICATIONS : Stroke and seizures. MEDICAL HISTORY : Hypertension. Cerebrovascular accident. Seizures. Diabetes. Anxiety. SURGICAL HISTORY : Thyroidectomy. Tubal ligation. Hysterectomy. Eyelid surgery. ENCOUNTER: Initial ACUITY: 1 day PAIN SCORE: Nonresponsive. LOCATION: Bilateral neck PEAK SYSTOLIC VELOCITIES (cm/sec): ICA/CCA RATIO: Right: 0.7 Left: 0.7 ICA: Right: 94.5 Left: 108.3 CCA: Right: 144.2 Left: 149.3 ECA: Right: 119.6 Left: 84.4 VERTEBRAL: Right: 88.9 antegrade Left: 94.7 antegrade Elevated flow velocities and ICA/CCA ratios have been found to correlate with increased degrees of vessel stenosis, calculated as percentage of diameter relative to a normal segment of distal ICA/CCA FINDINGS: RIGHT CAROTID: No significant stenosis is visualized. Moderate plaque. The waveforms are within normal limits. LEFT CAROTID: No significant stenosis is visualized. Moderate plaque. The waveforms are within normal limits. VERTEBRAL ARTERIES: Antegrade flow is seen in both vertebral arteries. MISCELLANEOUS: None. CONCLUSION: No hemodynamically significant stenosis in either carotid artery.. Peter Clark MD on November 03, 2016 at 22:55 Board Certified Radiologist. This report was verified electronically.
[2016-11-03] MEDS: DEXT 5%-NACL 0.9% 1000 ML INJ 1,000 ML IV SCH (23:48)
[2016-11-04] VITALS (12 sets, daily range): BP systolic 137–204; BP diastolic 63–86; PULSE 66–89; RESP 16–24; TEMP 98.3–99.6; O2SAT 99–100
[2016-11-04] MEDS: levETIRAcetam 500 MG/NS 100 ML IV SCH ×4 (01:33→12:10)
[2016-11-04] MEDS: hydrALAZINE HCL 50 MG TAB PO SCH ×4 (03:28→20:24)
[2016-11-04] MEDS: ENALAPRILAT 2.5 MG/2 ML VIAL IV PRN (04:07)
[2016-11-04] MEDS: INSULIN ASPART SUPPLEMENTAL SCALE SQ SCH ×4 (04:20→20:26)
[2016-11-04 05:36] LABS: BICARBONATE 23.9 MEQ/L (21.0-32.0); POTASSIUM 3.9 MEQ/L (3.5-5.1)
[2016-11-04] MEDS: SODIUM CHLORIDE 0.9% FLUSH 10 ML FLUSH IV FLUSH SCH ×2 (07:59→20:24)
--- NOTE | 2016-11-04 08:50 | HHI.PR ---
Review/Management Daily Summary 11/03 seen in [place] am when she was asleep and poorly awakened no apparent neuro change eeg brsults seen mri results seen, possible tiny acute left frontal infarct, disproportional to presentation and current status ?seizure vs tiny infarct left frontal check carotid us i agree with blood pressure care, lowering to more reasonable levels dementia and seizure , vpa level ok, also continue keppra 11/04 awoke and screams upon stim then starts following simple commands moves limbs ariana equally vs better motor on right than left discussed with RN will follow, keep keppra as is Subjective Subjective Comments No acute events reported Active Medications Current Medications Medications (Trade) Dose Ordered Sig/Dayna Route Start Time Stop Time Status Last Admin (Ativan Inj) 0.5 mg Q8H PRN IV 11/02/16 16:00 Enalaprilat 2.5 mg 2.5 mg Q6H PRN IV 11/02/16 17:15 11/04/16 04:07 (D5W-NS 1000 ml Inj) 1,000 ml @ 30 mls/hr Q24H IV 11/02/16 22:15 11/03/16 23:48 (NS Flush) 2 ml UNSCH PRN IV FLUSH 11/02/16 22:45 (NS Flush) 2 ml BID IV FLUSH 11/03/16 09:00 11/04/16 07:59 (Zofran Inj) 4 mg Q6H PRN IVP 11/02/16 22:45 (Narcan Inj) 0.4 mg UNSCH PRN IV 11/02/16 22:45 (Milk Of Magnesia Liq) 30 ml Q12H PRN PO 11/02/16 22:45 (Senokot) 17.2 mg Q12H PRN PO 11/02/16 22:45 (Dulcolax Supp) 10 mg DAILY PRN RECTAL 11/02/16 22:45 (Lactulose Liq) 30 ml DAILY PRN PO 11/02/16 22:45 (D50w (Vial) Inj) 50 ml UNSCH PRN IV 11/02/16 23:00 Glucagon 1 mg 1 mg UNSCH PRN OTHER 11/02/16 23:00 (Nitroglycerin-Dextrose Inj) 250 ml @ 0 mls/hr TITRATE IV 11/03/16 15:30 (Lopressor Inj) 5 mg Q4H PRN IV PUSH 11/03/16 15:30 11/04/16 08:00 (Apresoline) 50 mg Q8HR PO 11/03/16 15:45 Hydralazine HCl 20 mg 20 mg Q2HR PRN IV PUSH 11/03/16 15:45 11/03/16 21:11 (Keppra Inj/NS Inj) 105 ml @ 420 mls/hr Q12H IV 11/04/16 01:00 11/04/16 01:33 Allergies Allergies Coded Allergies Flagyl (Verified Allergy, Mild, NAUSEA, 07/14/07) Amlodipine (Verified Allergy, Unknown, 09/22/16) Benzonatate (Verified Allergy, Unknown, 09/22/16) Clonidine (Verified Allergy, Unknown, 09/22/16) Fluticasone (Verified Allergy, Unknown, 09/22/16) Labetalol (Verified Allergy, Unknown, 09/22/16) Propranolol (Verified Allergy, Unknown, 09/22/16) Exam I&O / VS 11/03/16 11/03/16 11/04/16 15:00 23:00 07:00 Intake Total 0 ml 2215 ml Output Total 1700 ml 750 ml Balance -1700 ml 1465 ml Intake Oral 0 ml IV Total 2215 ml Output Urine Total 1700 ml 750 ml # Bowel Movements 0 Vital Signs Date Time Temp Pulse Resp B/P Pulse Ox O2 Delivery O2 Flow Rate FiO2 11/04/16 08:37 100 Simple Mask 6.00 11/04/16 06:00 68 11/04/16 04:00 98.6 66 19 198/83 100 11/04/16 04:00 74 11/04/16 02:00 73 11/04/16 00:12 100 Simple Mask 6.00 11/04/16 00:02 72 11/04/16 00:02 98.5 78 20 163/72 99 11/03/16 22:18 58 18 126/58 100 11/03/16 22:10 98 Venturi Mask 6.00 50 11/03/16 21:46 55/31 80/42 11/03/16 21:15 98.4 63 18 176/76 99 11/03/16 20:35 99.2 66 18 217/88 100 11/03/16 20:30 97.1 70 20 220/90 100 11/03/16 16:35 98.9 70 16 213/96 99 11/03/16 15:29 74 195/95 11/03/16 13:56 212/90 11/03/16 11:30 98.1 63 16 209/95 97 11/03/16 09:00 98.0 63 16 191/83 97 Objective Radiology Results Vital Signs Date Time Temp Pulse Resp B/P Pulse Ox O2 Delivery O2 Flow Rate FiO2 11/04/16 08:37 100 Simple Mask 6.00 11/04/16 06:00 68 11/04/16 04:00 98.6 66 19 198/83 100 11/04/16 04:00 74 11/04/16 02:00 73 11/04/16 00:12 100 Simple Mask 6.00 11/04/16 00:02 72 11/04/16 00:02 98.5 78 20 163/72 99 11/03/16 22:18 58 18 126/58 100 11/03/16 22:10 98 Venturi Mask 6.00 50 11/03/16 21:46 55/31 80/42 11/03/16 21:15 98.4 63 18 176/76 99 11/03/16 20:35 99.2 66 18 217/88 100 11/03/16 20:30 97.1 70 20 220/90 100 11/03/16 16:35 98.9 70 16 213/96 99 11/03/16 15:29 74 195/95 11/03/16 13:56 212/90 11/03/16 11:30 98.1 63 16 209/95 97 11/03/16 09:00 98.0 63 16 191/83 97 Last 48 hours Impressions Carotid Artery Ultrasound 11/03/16 0000 Signed Impressions: Service Date/Time: Thursday, November 03, 2016 22:23 - CONCLUSION: No hemodynamically significant stenosis in either carotid artery.. Peter Clark MD Brain MRI 11/03/16 0000 Signed Impressions: Service Date/Time: Thursday, November 03, 2016 18:44 - CONCLUSION: 1. Tiny infarct left frontal parietal lobe. 2. 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 3. Remote occipital infarcts. Peter Clark MD Micro and Labs Laboratory Tests Test 11/03/16 11/04/16 09:28 04:21 White Blood Count 8.0 Red Blood Count 3.93 Hemoglobin 12.8 Hematocrit 38.7 Mean Corpuscular Volume 98.4 Mean Corpuscular Hemoglobin 32.5 Mean Corpuscular Hemoglobin 33.1 Concent Red Cell Distribution Width 14.2 Platelet Count 167 Mean Platelet Volume 9.8 Neutrophils (%) (Auto) 72.5 Lymphocytes (%) (Auto) 13.4 Monocytes (%) (Auto) 11.6 Eosinophils (%) (Auto) 1.7 Basophils (%) (Auto) 0.8 Neutrophils # (Auto) 5.8 Lymphocytes # (Auto) 1.1 Monocytes # (Auto) 0.9 Eosinophils # (Auto) 0.1 Basophils # (Auto) 0.1 CBC Comment DIFF FINAL Differential Comment Hematology Comments Sodium Level 141 136 Potassium Level 3.9 3.9 Chloride Level 104 103 Carbon Dioxide Level 27.8 23.9 Anion Gap 9 9 Blood Urea Nitrogen 14 11 Creatinine 0.78 0.70 Estimat Glomerular Filtration 71 80 Rate Random Glucose 83 124 Calcium Level 8.8 8.4 Chucky Zelaya MD Nov 04, 2016 08:50
[2016-11-04] MEDS ORDERED: ASPIRIN 300 MG SUPP RECTAL SCH (09:00)
[2016-11-04] MEDS: hydrALAZINE HCL 20 MG/ML VIAL IV PUSH PRN ×2 (09:46→12:10)
--- NOTE | 2016-11-04 10:43 | HHI.FPPN ---
Objective Vitals Vital Signs Date Time Temp Pulse Resp B/P Pulse Ox O2 Delivery O2 Flow Rate FiO2 11/04/16 08:37 100 Simple Mask 6.00 11/04/16 06:00 68 11/04/16 04:00 98.6 66 19 198/83 100 11/04/16 04:00 74 11/04/16 02:00 73 11/04/16 00:12 100 Simple Mask 6.00 11/04/16 00:02 72 11/04/16 00:02 98.5 78 20 163/72 99 11/03/16 22:18 58 18 126/58 100 11/03/16 22:10 98 Venturi Mask 6.00 50 11/03/16 21:46 55/31 80/42 11/03/16 21:15 98.4 63 18 176/76 99 11/03/16 20:35 99.2 66 18 217/88 100 11/03/16 20:30 97.1 70 20 220/90 100 11/03/16 16:35 98.9 70 16 213/96 99 11/03/16 15:29 74 195/95 11/03/16 13:56 212/90 11/03/16 11:30 98.1 63 16 209/95 97 I/O 11/03/16 11/03/16 11/03/16 11/04/16 11/04/16 11/04/16 07:00 15:00 23:00 07:00 15:00 23:00 Intake Total 0 ml 2215 ml Output Total 900 ml 1700 ml 750 ml Balance -900 ml -1700 ml 1465 ml Intake Oral 0 ml IV Total 2215 ml Output Urine Total 900 ml 1700 ml 750 ml # Bowel Movements 0 Result Diagram: 11/03/16 0928 11/04/16 0421 A/P Assessment and Plan ASSESSMENT- Altered mental status due to HTN encephalopathy, SZ, and likely CVA Seizure. CVA Respiratory insufficiency Urgent hypertension Hypertensive encephalopathy Diabetes Personality disorder NOS Dementia with psychosis Hyponatremia PLAN- BMP and CBC. Advance diet Cariology appreciated, they signed off. D5 normal saline Restart po VPA for SZ and psychosis Keppra 500 mg IV q12h Restart scheduled home dose enalapril and Enalapril as needed systolic greater than 190. Increase hydralazine Sliding scale insulin Telemetry SCD's IRINA's ASA 81 qd, cancel rectal ASA Heparin 5000 bid for prophylaxis. ICU care, 45 min. Tacho Goldberg MD Nov 04, 2016 10:43
[2016-11-04] MEDS: ENALAPRIL MALEATE 10 MG TAB PO SCH ×2 (11:15→20:24)
[2016-11-04] MEDS: HEPARIN SODIUM - SQ 10,000 UNITS/ML VIAL SQ SCH ×2 (11:15→20:24)
[2016-11-04] MEDS: HALOPERIDOL 0.5 MG TAB PO SCH (14:57)
--- NOTE | 2016-11-04 16:16 | PD.CONS ---
Consult Service Palliative Care Consult Requested By Dr. Goldberg Primary Care Physician Tacho Goldberg MD Reason for Consultation a. To assist with evaluation and management of symptoms including: encephalopathy b. To assist medical decision maker(s) with: better understanding of current medical conditions; weighing benefits/burdens of medical treatment options; making medical treatment decisions. HPI History of Present Illness This 80-year-old patient was admitted via the ED on 11/02/16 via EMS. She apparently was found by snf staff ([facility] )unresponsive, last seen normal about an hour prior to being found. While EMS present had seizure episode and received Ativan. They noted agonal respirations and low O2 sats and initiated [id number] respirations. Noted to be DNR. Stroke alert protocol was initiated. Known history of dementia. Hospital course: * In the ED was discussed with neurology who noted that the patient with history of seizures and dementia not a good TPA candidate. Patient on nasal cannula and nonrebreather during ER course satting 100%. CT brain with no acute intracranial process identified. CT otherwise Notable for atrophy and chronic small vessel ischemic change. Received aspirin per neurology recommendation. She was admitted for further evaluation and management. * Neurology consultation notes exam nonfocal, possible that patient had seizure recurrence, not a candidate for TPA. Plan to continue antiepileptics, consider MRI, monitor clinical Status. EEG ordered. * EEG: Moderate myogenic artifact probable underlying mild to moderate encephalopathy versus sleep state no active seizure activity * Medical attending Dr. Goldberg, who is also patient outpatient provider notes that she has significant history of dementia with known psychosis and baseline she had episodes of severe agitation and combativeness. She may ultimately require long term facility placement versus [facility] placement. * Speech therapy evaluation-patient minim ally responsive unable to participate * Cardiology consulted for hypertension, possible stroke-additional pharmacological management of blood pressure pending neurology confirmation of possible permissive hypertension etc. Cardiology signed off available as needed. * Neurology okay with lowering blood pressure to reasonable levels per cardiology. Continue Keppra. MRI ordered. MRI = possible tiny acute left frontal infarct, disproportional to presentation and current status ?seizure vs tiny infarct left frontal . Carotid ultrasound ordered. Carotid ultrasound= No hemodynamically significant stenosis in either carotid artery * Repeat speech therapy evaluation 11/04 notes patient tolerates and liquids and pure without signs of aspiration. * 11/04 Palliative care was consulted to assist with goals of treatment. Pt seen in room no family present. On simple mask O2, RT plans to change to NC, O2 sats 100%. SHe is very lethargic and does not interact with me upon exam. Observe spont. movement x 4 extremities. Does not open eyes or follow commands. Nsg indicates earlier refused PO intake for nurse. Following exam call to dtr Wendi. . Function/Cognitive Trajectory Had been living at [facility] facility, prior Piña act here at [facility] September 23, 2016 reported to be increasingly aggressive toward staff and other residents. Retired 6 years ago, and cognitive status deteriorated about 4 years ago at which time her 's health status also deteriorated due to CVA (per prior psychiatry evaluation and discussion with daughter Wendi). At that time she lived at one facility for 2 years, was transferred to her current [facility] 2 years ago- following last piña act was d/c to [facility] memory care unit. During her stay at current facility she has been noted to be increasingly demanding and at times combative. Family reports still ambulatory, verbalizes full sentences . can make her basic needs known. Still continent at times. Normally eats well. Assists/participates in ADLS though needs guidance/prompting. Feeds Self. . Review of Systems ROS Limitations: Uncooperative (*lethargic, noninteractive ), Poor Historian Past Family Social History Coded Allergies: Flagyl (Verified Allergy, Mild, NAUSEA, 07/14/07) Amlodipine (Verified Allergy, Unknown, 09/22/16) Benzonatate (Verified Allergy, Unknown, 09/22/16) Clonidine (Verified Allergy, Unknown, 09/22/16) Fluticasone (Verified Allergy, Unknown, 09/22/16) Labetalol (Verified Allergy, Unknown, 09/22/16) Propranolol (Verified Allergy, Unknown, 09/22/16) Past Medical History Dementia with behavioral disturbances Hypertension Diabetes Past Surgical History Hysterectomy . Reported Medications Depakene (Valproic Acid) 250 Mg Cap 250 Mg PO BID Nifedipine ER 24 HR (Nifedipine) 30 Mg Tab 30 Mg PO DAILY Nizoral Topical Shampoo (Ketoconazole) 2% Sham 1 Applic EXTERNAL DAILY Haloperidol 0.5 Mg Tab 0.5 Mg PO DAILY@1600 Amaryl (Glimepiride) 1 Mg Tab 1 Mg PO BID Escitalopram (Escitalopram Oxalate) 10 Mg Tab 10 Mg PO DAILY Enalapril (Enalapril Maleate) 10 Mg Tab 20 Mg PO 2 BID Oyster Shell 250 mg + Vit D Tb (Calcium/Vitamin D) 250 Mg Calcium (625 Mg)-125 Unit Tablet 500 Mg PO 2 BID Aspirin Low Strength (Aspirin) 81 Mg Chew 81 Mg CHEW DAILY Amoxicillin-Clavulanate 875-125 mg Tab 875 Mg PO Q12HR Macrobid (Nitrofurantoin Monoh/Nitrofur Macro) 100 Mg Cap 100 Mg PO BID 7 Days Valproic Acid 250 Mg Cap 250 Mg PO BID Polyethylene Glycol 3350 Powder (Polyethylene Glycol) 17 Gm Pow 17 Gm PO DIRECTED Nifedipine ER 24 HR (Nifedipine) 30 Mg Tab PO DAILY Levothyroxine (Levothyroxine Sodium) 75 Mcg Tab 75 Mcg PO DAILY Hyoscyamine (Hyoscyamine Sulfate) 0.125 Mg Tab 0.125 Mg PO Q4H Glimepiride 1 Mg Tab 1 Mg PO BID Take with breakfast or first main meal Fish Oil ([place]-3 Fatty Acids) 1,000 Mg Cap BID Enalapril (Enalapril Maleate) 20 Mg Tab 20 Mg PO BID Donepezil 5 Mg Tab 5 Mg PO HS Calcium 600 + Vit D Tablet (Calcium Carbonate/Vitamin D3) 1 Each Tablet 1 Tab Aspirin 81 Mg Chew 81 Mg CHEW DAILY Alprazolam 0.5 Mg Tab 0.5 Mg PO BID . Current Medications Medications (Trade) Dose Ordered Sig/Dayna Route Start Time Stop Time Status Last Admin (Ativan Inj) 0.5 mg Q8H PRN IV 11/02/16 16:00 Enalaprilat 2.5 mg 2.5 mg Q6H PRN IV 11/02/16 17:15 11/04/16 04:07 (D5W-NS 1000 ml Inj) 1,000 ml @ 30 mls/hr Q24H IV 11/02/16 22:15 11/03/16 23:48 (NS Flush) 2 ml UNSCH PRN IV FLUSH 11/02/16 22:45 (NS Flush) 2 ml BID IV FLUSH 11/03/16 09:00 11/04/16 07:59 (Zofran Inj) 4 mg Q6H PRN IVP 11/02/16 22:45 (Narcan Inj) 0.4 mg UNSCH PRN IV 11/02/16 22:45 (Milk Of Magnesia Liq) 30 ml Q12H PRN PO 11/02/16 22:45 (Senokot) 17.2 mg Q12H PRN PO 11/02/16 22:45 (Dulcolax Supp) 10 mg DAILY PRN RECTAL 11/02/16 22:45 (Lactulose Liq) 30 ml DAILY PRN PO 11/02/16 22:45 (D50w (Vial) Inj) 50 ml UNSCH PRN IV 11/02/16 23:00 Glucagon 1 mg 1 mg UNSCH PRN OTHER 11/02/16 23:00 (Nitroglycerin-Dextrose Inj) 250 ml @ 0 mls/hr TITRATE IV 11/03/16 15:30 (Lopressor Inj) 5 mg Q4H PRN IV PUSH 11/03/16 15:30 11/04/16 08:00 Hydralazine HCl 20 mg 20 mg Q2HR PRN IV PUSH 11/03/16 15:45 11/04/16 12:10 (Keppra Inj/NS Inj) 105 ml @ 420 mls/hr Q12H IV 11/04/16 01:00 11/04/16 12:10 (Aspirin Chew) 81 mg DAILY CHEW 11/05/16 11:00 (Vasotec) 20 mg BID PO 11/04/16 11:00 11/04/16 11:15 (Lexapro) 10 mg DAILY PO 11/05/16 09:00 (Haldol) 0.5 mg DAILY@1600 PO 11/04/16 16:00 (Namenda) 10 mg DAILY PO 11/05/16 09:00 (Brandie-Colace) 2 tab HS PO 11/04/16 21:00 (Apresoline) 50 mg QID PO 11/04/16 13:00 (Heparin Inj) 5,000 units Q12HR SQ 11/04/16 12:00 11/04/16 11:15 Family History No family history of psychiatric illness, 1 daughter who is an alcoholic/ drug addictions Substance Use Tobacco: Nonsmoker Alcohol: None Prescription med abuse: None Illicits: None . Psychosocial History Recently , with dementia recently in past year. Lived at [facility], recently moved to [facility]. Originally from [place]. Completed a high school education. Worked for the [employer] for over 30 years, retired 6 years ago. twice, the first ended in divorce, her second recently . Has 3 daughters, 1 son. Remains supported by son Blaze, dtr Wendi. Wendi reports 1 daughter (her sister ) is actually now a [place] resident and dependent for care, and Wendi serves as decision maker for 2/2 her. Another daughter lives somewhere in but has drug abuse problems and has not been in communication with family. . Spiritual/Cultural Factors Taoist Ethical and Legal Issues Patient does have power of employment law attorney forms on record here however this document specifically states does not pertain to medical decision making. This designates dtr Wendi, son Blaze. Upon phone discussion w dtr Wendi, she informs that September 2016 during psych admission, they completed paperwork with a exhibit artist present here in psych unit appointing her as guardian for pt, including healthcare. She does not have copies of this. Will need to obtain documentation of this, otherwise per statutes legal decision making would fall to majority of available children. Physical Exam Vital Signs Date Time Temp Pulse Resp B/P Pulse Ox O2 Delivery O2 Flow Rate FiO2 11/04/16 14:00 78 11/04/16 14:00 78 137/63 11/04/16 12:00 98.4 76 22 178/74 100 11/04/16 12:00 76 11/04/16 10:00 165/71 11/04/16 10:00 72 11/04/16 08:37 100 Simple Mask 6.00 11/04/16 08:00 98.7 69 19 204/86 100 11/04/16 08:00 69 11/04/16 06:00 68 11/04/16 04:00 98.6 66 19 198/83 100 11/04/16 04:00 74 11/04/16 02:00 73 11/04/16 00:12 100 Simple Mask 6.00 11/04/16 00:02 72 11/04/16 00:02 98.5 78 20 163/72 99 11/03/16 22:18 58 18 126/58 100 11/03/16 22:10 98 Venturi Mask 6.00 50 11/03/16 21:46 55/31 80/42 11/03/16 21:15 98.4 63 18 176/76 99 7/25/17 20:35 99.2 66 18 217/88 100 11/03/16 20:30 97.1 70 20 220/90 100 11/03/16 16:35 98.9 70 16 213/96 99 11/03/16 11/04/16 19:00 07:00 Intake Total 2215 ml Output Total 1300 ml 1150 ml Balance -1300 ml 1065 ml Intake Oral 0 ml IV Total 2215 ml Output Urine Total 1300 ml 1150 ml # Bowel Movements 0 Exam CONSTITUTIONAL/GENERAL: This is an adequately nourished patient, in no apparent distress, lethargic TUBES/LINES/DRAINS: PIV left AC, FM O2, reynoso catheter SKIN: No jaundice, rashes, or lesions. several areas ecchymoses on upper extremities/forearms. No wounds seen anteriorly. Skin temperature appropriate. Not diaphoretic. HEAD: Atraumatic. Normocephalic. EYES: does not open eyes for exam ENT: Nose without bleeding or purulent drainage.does not open mouth for exam NECK: Trachea midline. Supple, nontender. No palpable thyroid enlargement or nodularity. CARDIOVASCULAR: Regular rate and rhythm without murmurs.No JVD. Peripheral pulses symmetric. RESPIRATORY/CHEST: Symmetric, unlabored respirations, on FM 5L. Clear to auscultation. Breath sounds equal bilaterally. GASTROINTESTINAL: Abdomen soft, non-tender, nondistended. No hepato-splenomegaly , or palpable masses. No guarding. Bowel sounds present. GENITOURINARY: Without palpable bladder distension. Reynoso catheter in place.clear yellow urine MUSCULOSKELETAL: Extremities without clubbing, cyanosis, or edema. No mottling or clubbing. NEUROLOGICAL: lethargic, minimally stirs to exam. No eye opening. Observe move all 4 extremities spont. Does not follow commands. Localizes/withdraws to pain. PSYCHIATRIC: No obvious anxiety/depression. no apparent hallucinations or other psychotic thought process. limited assessment due to lethargy Diagnostic Tests Laboratory Laboratory Tests Test 11/02/16 11/02/16 11/02/16 11/03/16 10:40 11:45 12:30 09:28 White Blood Count 9.4 TH/MM3 8.0 TH/MM3 (4.0-11.0) (4.0-11.0) Red Blood Count 3.88 MIL/MM3 3.93 MIL/MM3 (4.00-5.30) (4.00-5.30) Hemoglobin 13.2 GM/DL 12.8 GM/DL (11.6-15.3) (11.6-15.3) Bedside Hemoglobin 13.6 G/DL (12.0-17.0) Hematocrit 38.6 % 38.7 % (35.0-46.0) (35.0-46.0) Bedside Hematocrit 40.0 % (38.0-51.0) Mean Corpuscular Volume 99.5 FL 98.4 FL (80.0-100.0) (80.0-100.0) Mean Corpuscular Hemoglobin 34.0 PG 32.5 PG (27.0-34.0) (27.0-34.0) Mean Corpuscular Hemoglobin 34.2 % 33.1 % Concent (32.0-36.0) (32.0-36.0) Red Cell Distribution Width 14.3 % 14.2 % (11.6-17.2) (11.6-17.2) Platelet Count 235 TH/MM3 167 TH/MM3 (150-450) (150-450) Mean Platelet Volume 8.8 FL 9.8 FL (7.0-11.0) (7.0-11.0) Neutrophils (%) (Auto) 69.0 % 72.5 % (16.0-70.0) (16.0-70.0) Lymphocytes (%) (Auto) 22.3 % 13.4 % (9.0-44.0) (9.0-44.0) Monocytes (%) (Auto) 7.8 % (0.0-8.0) 11.6 % (0.0-8.0) Eosinophils (%) (Auto) 0.5 % (0.0-4.0) 1.7 % (0.0-4.0) Basophils (%) (Auto) 0.4 % (0.0-2.0) 0.8 % (0.0-2.0) Neutrophils # (Auto) 6.5 TH/MM3 5.8 TH/MM3 (1.8-7.7) (1.8-7.7) Lymphocytes # (Auto) 2.1 TH/MM3 1.1 TH/MM3 (1.0-4.8) (1.0-4.8) Monocytes # (Auto) 0.7 TH/MM3 0.9 TH/MM3 (0-0.9) (0-0.9) Eosinophils # (Auto) 0.0 TH/MM3 0.1 TH/MM3 (0-0.4) (0-0.4) Basophils # (Auto) 0.0 TH/MM3 0.1 TH/MM3 (0-0.2) (0-0.2) CBC Comment DIFF FINAL DIFF FINAL Differential Comment Prothrombin Time 10.7 SEC (9.8-11.6) Prothromb Time International 1.0 RATIO Ratio Activated Partial 22.6 SEC Thromboplast Time (24.3-30.1) Fibrinogen 270 mg/dL (227-377) Bedside Sodium 137 MMOL/L (138-146) Bedside Potassium 4.0 MMOL/L (3.5-4.9) Bedside Chloride 101 MMOL/L (98-109) Bedside Blood Urea Nitrogen 23 MG/DL (8-26) Bedside Creatinine 1.0 MG/DL (0.6-1.0) Bedside Glucose 184 MG/DL (60-95) Total Creatine Kinase 79 U/L (26-192) Troponin I LESS THAN 0.02 NG/ML (0.02-0.05) Blood Type A POSITIVE Antibody Screen NEGATIVE Blood Bank Comment Urine Color YELLOW (YELLW/STRAW) Urine Turbidity HAZY (CLEAR) Urine pH 5.5 (5.0-8.5) Urine Specific [place] 1.020 (1.002-1.035) Urine Protein TRACE mg/dL (NEG-TRACE) Urine Glucose (UA) NEG mg/dL (NEG) Urine Ketones TRACE mg/dL (NEG) Urine Occult Blood NEG (NEG) Urine Nitrite NEG (NEG) Urine Bilirubin NEG (NEG) Urine Urobilinogen LESS THAN 2.0 MG/DL (LESS THAN 2.0) Urine Leukocyte Esterase TRACE (NEG) Urine WBC 2 /hpf (0-5) Urine Bacteria MOD /hpf (NONE) Microscopic Urinalysis Comment Urine Opiates Screen NEG (NEG) Urine Barbiturates Screen NEG (NEG) Urine Amphetamines Screen NEG (NEG) Urine Benzodiazepines Screen NEG (NEG) Urine Cocaine Screen NEG (NEG) Urine Cannabinoids Screen NEG (NEG) Valproic Acid (Depakene) Level 62 MCG/ML (50-100) Hematology Comments Sodium Level 141 MEQ/L (136-145) Potassium Level 3.9 MEQ/L (3.5-5.1) Chloride Level 104 MEQ/L (98-107) Carbon Dioxide Level 27.8 MEQ/L (21.0-32.0) Anion Gap 9 MEQ/L (5-15) Blood Urea Nitrogen 14 MG/DL (7-18) Creatinine 0.78 MG/DL (0.50-1.00) Estimat Glomerular Filtration 71 ML/MIN (>89) Rate Random Glucose 83 MG/DL (74-106) Calcium Level 8.8 MG/DL (8.5-10.1) Test 11/04/16 04:21 Sodium Level 136 MEQ/L (136-145) Potassium Level 3.9 MEQ/L (3.5-5.1) Chloride Level 103 MEQ/L (98-107) Carbon Dioxide Level 23.9 MEQ/L (21.0-32.0) Anion Gap 9 MEQ/L (5-15) Blood Urea Nitrogen 11 MG/DL (7-18) Creatinine 0.70 MG/DL (0.50-1.00) Estimat Glomerular Filtration 80 ML/MIN (>89) Rate Random Glucose 124 MG/DL (74-106) Calcium Level 8.4 MG/DL (8.5-10.1) Result Diagram: 11/03/16 0928 11/04/16 0421 Imaging Last Impressions Carotid Artery Ultrasound 11/03/16 0000 Signed Impressions: Service Date/Time: Thursday, November 03, 2016 22:23 - CONCLUSION: No hemodynamically significant stenosis in either carotid artery.. Peter Clark MD Brain MRI 11/03/16 0000 Signed Impressions: Service Date/Time: Thursday, November 03, 2016 18:44 - CONCLUSION: 1. Tiny infarct left frontal parietal lobe. 2. 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 3. Remote occipital infarcts. Peter Clark MD Head CT 11/02/16 0000 Signed Impressions: Service Date/Time: Wednesday, November 02, 2016 10:46 - CONCLUSION: 1. Atrophy and chronic small vessel ischemic change. 2. No acute intracranial abnormality. Jeffrey Peres Jr., MD Patient/Family Conference Present at Family Conference: les Adame Family Conference Time (mins): 35 (minutes) Family Conference Location: Telephone Issues Discussed: Spoke w les Adame on phone approx 35 min. Discussion included: * Palliative care role, purpose, approach * Additional medical, psychosocial, and spiritual history * Patients general health, functional status, and cognitive changes in the months leading up to the current hospitalization * Patient/family understanding of the current medical problems-- review of dementia disease process, natural progression of disease and expected trajectory /eventual decline * Patient/family understanding of prognosis * Patients goals of care as best understood from advance directives and/or conversations and/or values * Current medical treatment options and benefits/burdens of those options * Code status- FULL CODE requested * HCS/legal dec maker (*see legal note) dtr indicates is legal guardian * Likely scenarios comparing ongoing aggressive care with a transition to comfort measures only- briefly review comfort measures vs aggressive tx for advanced ES dementia * Questions answered to the best of my ability * Palliative care contact information provided, also left information RE dementia disease process @ bedside for dtr Dtr informs that since pt has been in memory care at [facility] seems to be doing well. She is still ambulatory, goes to eat w other residents, feeds herself, enjoys family visits and is fairly interactive and high functioning. She has had increase in behavior disturbance in the past few mos, which dtr partly attributes to pt underlying personality and loss of her , on top of the dementia. Dtr indicates DNR was elected bc they did not have full understanding of what that meant, she would only not want to be on life support prolonged, but would want to try resuscitation in current status, if it was possible she could get back to [place] and still interact w family. Much review of dementia trajectory, and likely complications pt will face in the future including infections, dysphagia, etc. Daughter endorses that pt, family goals at this time aggressive as pt had pretty good quality of life prior to admission. When her dementia becomes severe they will consider less aggressive tx. Assessment and Plan Disease Oriented Problem List: (1) Dementia with behavioral disturbance (2) Hypertension (3) Seizure (4) Stroke Symptom Scale: (1) Encephalopathy (2) Agitation Pertinent Non-Medical Issues Psychosocial:Recently , with dementia recently . [facility] at [facility]. Originally from [place]. Completed a high school education. Worked for the [employer] for over 30 years, retired 6 years ago. twice, the first ended in divorce, her second recently . Spiritual: Taoist Legal:Patient does have power of employment law attorney forms on record here however this document specifically states does not pertain to medical decision making. This designates tal Hernández. Upon phone discussion w les Adame, she informs that September 2016 during psych admission, they completed paperwork with a exhibit artist present here in psych unit appointing her as guardian for pt, including healthcare. She does not have copies of this. Will need to obtain documentation of this, otherwise per statutes legal decision making would fall to majority of available children. Ethical issues impacting care: Important Contacts Daughter Wendi Schap [phone] . Prognosis Pt was admitted for AMS poss seizure vs CVA. No further seizures. Possible tiny CVA per MRI findings. Pt has been stable. Hx of dementia, though is still high functioning, not end stage. Based on current condition/ assessments , appears she can recover from current acute issues and return to prior NH setting. She will be expected to have progression and decline r/t underlying dementia diagnosis, though does not currently have end stage disease process. Code Status: Full Code Plan * Legal decision maker:Patient does have power of employment law attorney forms on record here however this document specifically states does not pertain to medical decision making. This designates tal Hernández. Upon phone discussion w les Adame, she informs that September 2016 during psych admission, they completed paperwork with a exhibit artist present here in psych unit appointing her as guardian for pt, including healthcare. She does not have copies of this. Will need to obtain documentation of this, otherwise per statutes legal decision making would fall to majority of available children. * Goals: Goals are aggressive, as long as pt can return to prior level of interaction and quality time w family, family feels she would want to continue to pursue available treatments. * CODE STATUS: Full * SYMPTOMS: --encephalopathy- ? post ictal, tiny CVA. carotid U/s negative. improving some during hospital course, will cont to evaluate. Neurology following -- poor appetite- dtr reports pt usually eats well (but on her own terms) appears well nourished. intermittently refusing PO for nursing, this is fluctuating, not warranting feeding tube at this time -- hx combativeness/agitation episodes. Has always had a "stubborn" personality per dtr. Increase in behaviors at nursing facility. none here during hospital course. On scheduled haldol (though refused todays dose) , namenda, lexapro, PRN ativan available (has not required as of yet) Consider PRN haldol if develops severe agitation/hallucinations/confusion * Palliative care will continue to follow during hospital course as condition evolves, to assist patient/decision-maker with understanding of medical conditions, weighing benefits/burdens of treatment options, for clarification of goals of treatment. Additionally will assist with any symptoms of palliative concern Time Spent Total Floor Time (mins): 60 Thank you for the opportunity to participate in the care of Ms. Meade. Attestation To help prompt me to consider important information that might be impacting today's encounter and assessment, information from prior notes written by myself or my colleagues may have been "brought forward" into today's note. My signature on this note, however, is an attestation that I personally performed the exam, history, and/or decision-making noted today, and, unless otherwise indicated, the interactions with patient, family, and staff as well as the review of records all occurred today. I also attest that the listed assessment and stated plan reflect my best clinical judgment today based on the combination of historical information, prior notes, and today's exam/ interactions. When time spent is documented, it refers only to time spent today by the signer, or if indicated, combined time spent today by collaborating physician/nurse practitioner. Alicia Dye Nov 04, 2016 16:15
[2016-11-04] MEDS: DOCUSATE SODIUM 50 MG/SENNA 8.6 MG TAB PO SCH (20:24)
[2016-11-04] MEDS: DEXT 5%-NACL 0.9% 1000 ML INJ 1,000 ML IV SCH (22:15)
[2016-11-05] VITALS (10 sets, daily range): BP systolic 92–189; BP diastolic 64–77; PULSE 66–85; RESP 17–20; TEMP 97.8–99.1; O2SAT 93–98
[2016-11-05] MEDS: levETIRAcetam 500 MG/NS 100 ML IV SCH ×4 (01:12→12:23)
[2016-11-05] MEDS: INSULIN ASPART SUPPLEMENTAL SCALE SQ SCH ×4 (05:49→21:00)
[2016-11-05 08:09] LABS: BASOPHIL % 0.2 % (0.0-2.0); EOSINOPHIL % 0.3 % (0.0-4.0); LYMPH % 7.6 % (9.0-44.0); LYMPHOCYTE # 0.7 TH/MM3 (1.0-4.8); MEAN CELL VOLUME 98.8 FL (80.0-100.0); MEAN CORPUSCULAR HEMOGLOBIN 32.6 PG (27.0-34.0); MONO % 12.4 % (0.0-8.0); NEUT % 79.5 % (16.0-70.0); PLATELET COUNT 165 TH/MM3 (150-450); RED BLOOD COUNT 3.24 MIL/MM3 (4.00-5.30); RED CELL DISTRIBUTION WIDTH 14.3 % (11.6-17.2); WHITE BLOOD COUNT 8.8 TH/MM3 (4.0-11.0)
[2016-11-05 08:21] LABS: HEMO FLAGS AUTO DIFF
[2016-11-05 08:45] LABS: BICARBONATE 26.5 MEQ/L (21.0-32.0); POTASSIUM 3.4 MEQ/L (3.5-5.1)
[2016-11-05] MEDS: hydrALAZINE HCL 50 MG TAB PO SCH ×5 (10:01→20:34)
[2016-11-05] MEDS: MEMANTINE HCL 10 MG TAB PO SCH (10:02)
[2016-11-05] MEDS: ENALAPRIL MALEATE 10 MG TAB PO SCH ×2 (10:02→20:34)
[2016-11-05] MEDS: ESCITALOPRAM OXALATE 10 MG TAB PO SCH (10:02)
[2016-11-05] MEDS: HEPARIN SODIUM - SQ 10,000 UNITS/ML VIAL SQ SCH ×2 (10:02→20:34)
[2016-11-05] MEDS: SODIUM CHLORIDE 0.9% FLUSH 10 ML FLUSH IV FLUSH SCH ×2 (10:02→20:35)
[2016-11-05 10:31] LABS: SCAN/DIFF AUTO DIFF CONFIRMED
[2016-11-05] MEDS: ASPIRIN 81 MG CHEW TAB CHEW SCH (12:22)
--- NOTE | 2016-11-05 13:07 | HHI.HCPN ---
Attempted to meet with patient and family this morning for follow-up palliative care support. Ms. Meade was currently sleeping, no family at bedside. Spoke with daughter, Wendi, via telephone. She denies any questions or concerns at this time. Tells me she has been informed medical team is watching her blood pressure , verbalizes Ms. Meade "is more awake and talking". Wendi reports she will be coming to visit with her mother tomorrow, unsure of time. Gently discussed with her advanced directives for health care decision making. In review of previous conversation with palliative, guardian advocate was appointed during patient's bennett act admission here, explained guardian advocate is only during patient's psychiatric stay while under the bennett act, usually does not proceed after discharge, this is not an actual guardian appointment. Wendi confirms she has no guardian paperwork from court. She further tells me patient has never had a health care surrogate or power of commercial attorney for health care completed. Attempted to explain [place] Statutes and medical proxy decision making, she confirms 1 daughter is in long term and another lives in [place] and "she mistreated and took advantage which is why she doesn't have contact". Unable to elicit additional information on other children. As long as patient's remains unable to make her own medical decision and unable to appoint health care surrogate, any medical decisions per [place] Statutes would fall to the majority of adult children. Contacted [facility] to inquire about advanced directives, staff reports nothing on file for medical decision making. Wendi provided brothers contact information, Blaze Irvin [phone]. Palliative care will continue to follow throughout hospitalization. Tia Peres, LIBRARY SUPERVISOR Nov 05, 2016 13:07
[2016-11-05] MEDS ORDERED: POTASSIUM CHLOR 40 MEQ PREMIX 100 ML IV ONE (13:15)
--- NOTE | 2016-11-05 13:15 | HHI.FPPN ---
Subjective Remarks more alert d/w RN taking pills w encouragement Objective Vitals Vital Signs Date Time Temp Pulse Resp B/P Pulse Ox O2 Delivery O2 Flow Rate FiO2 11/05/16 12:02 97.8 80 20 137/64 98 11/05/16 10:13 93 Nasal Cannula 2.00 11/05/16 08:27 98.9 70 20 176/77 98 11/05/16 04:00 99.0 66 18 189/77 94 11/05/16 00:38 Nasal Cannula 2.00 11/05/16 00:00 99.1 71 17 163/74 97 11/04/16 20:00 98.3 74 16 171/74 100 11/04/16 16:00 99.6 89 24 159/72 100 11/04/16 16:00 89 11/04/16 14:00 78 11/04/16 14:00 78 137/63 I/O 11/04/16 11/04/16 11/04/16 11/05/16 11/05/16 11/05/16 07:00 15:00 23:00 07:00 15:00 23:00 Intake Total 2215 ml 420 ml 591 ml Output Total 750 ml 275 ml 200 ml 100 ml Balance 1465 ml 145 ml -200 ml 491 ml Intake Oral 50 ml IV Total 2215 ml 370 ml 591 ml Output Urine Total 750 ml 275 ml 200 ml 100 ml # Bowel Movements 0 0 0 Result Diagram: 11/05/16 0656 11/05/16 0656 Objective Remarks GENERAL: SKIN: Warm and dry. HEAD: Atraumatic. Normocephalic. EYES: Pupils equal and round. No scleral icterus. No injection or drainage. ENT: No nasal bleeding or discharge. Mucous membranes pink and moist. NECK: Trachea midline. No JVD. CARDIOVASCULAR: Regular rate and rhythm. RESPIRATORY: No accessory muscle use. Clear to auscultation. Breath sounds equal bilaterally. GASTROINTESTINAL: Abdomen soft, non-tender, nondistended. Hepatic and splenic margins not palpable. MUSCULOSKELETAL: Extremities without clubbing, cyanosis, or edema. No obvious deformities. NEUROLOGICAL: Awake and alert. No obvious cranial nerve deficits. Motor grossly within normal limits. 1 out of 5 muscle strength in the arms and legs. Normal speech. Medications and IVs Current Medications Medications (Trade) Dose Ordered Sig/Dayna Route Start Time Stop Time Status Last Admin (Ativan Inj) 0.5 mg Q8H PRN IV 11/02/16 16:00 Enalaprilat 2.5 mg 2.5 mg Q6H PRN IV 11/02/16 17:15 11/04/16 04:07 (D5W-NS 1000 ml Inj) 1,000 ml @ 30 mls/hr Q24H IV 11/02/16 22:15 11/03/16 23:48 (NS Flush) 2 ml UNSCH PRN IV FLUSH 11/02/16 22:45 (NS Flush) 2 ml BID IV FLUSH 11/03/16 09:00 11/04/16 20:24 (Zofran Inj) 4 mg Q6H PRN IVP 11/02/16 22:45 (Narcan Inj) 0.4 mg UNSCH PRN IV 11/02/16 22:45 (Milk Of Magnesia Liq) 30 ml Q12H PRN PO 11/02/16 22:45 (Senokot) 17.2 mg Q12H PRN PO 11/02/16 22:45 (Dulcolax Supp) 10 mg DAILY PRN RECTAL 11/02/16 22:45 (Lactulose Liq) 30 ml DAILY PRN PO 11/02/16 22:45 (D50w (Vial) Inj) 50 ml UNSCH PRN IV 11/02/16 23:00 Glucagon 1 mg 1 mg UNSCH PRN OTHER 11/02/16 23:00 (Nitroglycerin-Dextrose Inj) 250 ml @ 0 mls/hr TITRATE IV 11/03/16 15:30 (Lopressor Inj) 5 mg Q4H PRN IV PUSH 11/03/16 15:30 11/04/16 08:00 Hydralazine HCl 20 mg 20 mg Q2HR PRN IV PUSH 11/03/16 15:45 11/04/16 12:10 (Keppra Inj/NS Inj) 105 ml @ 420 mls/hr Q12H IV 11/04/16 01:00 11/05/16 12:23 (Aspirin Chew) 81 mg DAILY CHEW 11/05/16 11:00 11/05/16 12:22 (Vasotec) 20 mg BID PO 11/04/16 11:00 11/05/16 10:02 (Lexapro) 10 mg DAILY PO 11/05/16 09:00 11/05/16 10:02 (Haldol) 0.5 mg DAILY@1600 PO 11/04/16 16:00 (Namenda) 10 mg DAILY PO 11/05/16 09:00 11/05/16 10:02 (Brandie-Colace) 2 tab HS PO 11/04/16 21:00 11/04/16 20:24 (Apresoline) 50 mg QID PO 11/04/16 13:00 11/05/16 12:22 (Heparin Inj) 5,000 units Q12HR SQ 11/04/16 12:00 11/05/16 10:02 A/P Assessment and Plan ASSESSMENT- Altered mental status due to HTN encephalopathy, SZ, and likely CVA Seizure. CVA Respiratory insufficiency Urgent hypertension Hypertensive encephalopathy Diabetes Personality disorder NOS Dementia with psychosis Hyponatremia PLAN- iv KCL BMP and CBC. Advance diet Cariology appreciated, they signed off. D5 normal saline Restarted po VPA for SZ and psychosis Keppra 500 mg IV q12h Restart scheduled home dose enalapril and Enalapril as needed systolic greater than 190. Increase hydralazine Sliding scale insulin Telemetry SCD's IRINA's ASA 81 qd, cancel rectal ASA Heparin 5000 bid for prophylaxis. ICU care, 45 min. Tacho Goldberg MD Nov 05, 2016 13:15
[2016-11-05] MEDS: POTASSIUM CHLOR 20 MEQ PREMIX 100 ML IV SCH ×2 (16:21→18:13)
[2016-11-05] MEDS: HALOPERIDOL 0.5 MG TAB PO SCH (16:21)
[2016-11-05] MEDS ORDERED: NACL 0.45% IV ONE (19:00)
[2016-11-05] MEDS ORDERED: DEXT 5% IV ONE (19:00)
[2016-11-05] MEDS: DOCUSATE SODIUM 50 MG/SENNA 8.6 MG TAB PO SCH (20:34)
[2016-11-05] MEDS: DEXT 5%-NACL 0.9% 1000 ML INJ 1,000 ML IV SCH (22:15)
[2016-11-06] VITALS (11 sets, daily range): BP systolic 159–193; BP diastolic 69–79; PULSE 64–82; RESP 15–18; TEMP 98.1–98.9; O2SAT 93–97
[2016-11-06] MEDS: levETIRAcetam 500 MG/NS 100 ML IV SCH ×2 (01:23)
[2016-11-06] MEDS: ENALAPRILAT 2.5 MG/2 ML VIAL IV PRN (04:37)
[2016-11-06] MEDS: INSULIN ASPART SUPPLEMENTAL SCALE SQ SCH ×4 (05:20→21:00)
--- NOTE | 2016-11-06 08:50 | HHI.FPPN ---
Subjective Remarks agitated hs d/w RN bp low, bolused ivf Objective Vitals Vital Signs Date Time Temp Pulse Resp B/P Pulse Ox O2 Delivery O2 Flow Rate FiO2 11/06/16 08:00 98.2 79 18 165/69 97 11/06/16 04:25 98.6 79 15 188/79 93 193/79 11/06/16 04:00 98.7 79 16 188/79 93 11/06/16 01:28 81 11/05/16 20:00 98.9 85 18 166/71 97 11/05/16 19:24 163/70 11/05/16 17:59 95 Nasal Cannula 2.00 11/05/16 17:34 66 11/05/16 16:31 98.2 79 17 92/66 95 11/05/16 12:02 97.8 80 20 137/64 98 11/05/16 10:13 93 Nasal Cannula 2.00 I/O 11/05/16 11/05/16 11/05/16 11/06/16 11/06/16 11/06/16 07:00 15:00 23:00 07:00 15:00 23:00 Intake Total 591 ml 240 ml 381 ml Output Total 100 ml 150 ml 200 ml Balance 491 ml 240 ml 231 ml -200 ml Intake Oral 240 ml IV Total 591 ml 381 ml Output Urine Total 100 ml 150 ml 200 ml # Bowel Movements 0 Result Diagram: 11/05/16 0656 11/05/16 06 Objective Remarks GENERAL: SKIN: Warm and dry. HEAD: Atraumatic. Normocephalic. EYES: Pupils equal and round. No scleral icterus. No injection or drainage. ENT: No nasal bleeding or discharge. Mucous membranes pink and moist. NECK: Trachea midline. No JVD. CARDIOVASCULAR: Regular rate and rhythm. RESPIRATORY: No accessory muscle use. Clear to auscultation. Breath sounds equal bilaterally. GASTROINTESTINAL: Abdomen soft, non-tender, nondistended. Hepatic and splenic margins not palpable. MUSCULOSKELETAL: Extremities without clubbing, cyanosis, or edema. No obvious deformities. NEUROLOGICAL: Awake and alert. No obvious cranial nerve deficits. Motor grossly within normal limits. 1 out of 5 muscle strength in the arms and legs. Normal speech. Medications and IVs Current Medications Medications (Trade) Dose Ordered Sig/Dayna Route Start Time Stop Time Status Last Admin (Ativan Inj) 0.5 mg Q8H PRN IV 11/02/16 16:00 Enalaprilat 2.5 mg 2.5 mg Q6H PRN IV 11/02/16 17:15 11/06/16 04:37 (D5W-NS 1000 ml Inj) 1,000 ml @ 30 mls/hr Q24H IV 11/02/16 22:15 11/05/16 22:15 (NS Flush) 2 ml UNSCH PRN IV FLUSH 11/02/16 22:45 (NS Flush) 2 ml BID IV FLUSH 11/03/16 09:00 11/05/16 20:35 (Zofran Inj) 4 mg Q6H PRN IVP 11/02/16 22:45 (Narcan Inj) 0.4 mg UNSCH PRN IV 11/02/16 22:45 (Milk Of Magnesia Liq) 30 ml Q12H PRN PO 11/02/16 22:45 (Senokot) 17.2 mg Q12H PRN PO 11/02/16 22:45 (Dulcolax Supp) 10 mg DAILY PRN RECTAL 11/02/16 22:45 (Lactulose Liq) 30 ml DAILY PRN PO 11/02/16 22:45 (D50w (Vial) Inj) 50 ml UNSCH PRN IV 11/02/16 23:00 Glucagon 1 mg 1 mg UNSCH PRN OTHER 11/02/16 23:00 (Nitroglycerin-Dextrose Inj) 250 ml @ 0 mls/hr TITRATE IV 11/03/16 15:30 (Lopressor Inj) 5 mg Q4H PRN IV PUSH 11/03/16 15:30 11/04/16 08:00 Hydralazine HCl 20 mg 20 mg Q2HR PRN IV PUSH 11/03/16 15:45 11/04/16 12:10 (Keppra Inj/NS Inj) 105 ml @ 420 mls/hr Q12H IV 11/04/16 01:00 11/06/16 01:23 (Aspirin Chew) 81 mg DAILY CHEW 11/05/16 11:00 11/05/16 12:22 (Vasotec) 20 mg BID PO 11/04/16 11:00 11/05/16 20:34 (Lexapro) 10 mg DAILY PO 11/05/16 09:00 11/05/16 10:02 (Haldol) 0.5 mg DAILY@1600 PO 11/04/16 16:00 11/05/16 16:21 (Namenda) 10 mg DAILY PO 11/05/16 09:00 11/05/16 10:02 (Brandie-Colace) 2 tab HS PO 11/04/16 21:00 11/05/16 20:34 (Apresoline) 50 mg QID PO 11/04/16 13:00 11/05/16 20:34 (Heparin Inj) 5,000 units Q12HR SQ 11/04/16 12:00 11/05/16 20:34 A/P Assessment and Plan ASSESSMENT- Altered mental status due to HTN encephalopathy, SZ, and likely CVA Seizure. CVA Respiratory insufficiency Urgent hypertension Hypertensive encephalopathy Diabetes Personality disorder NOS Dementia with psychosis Hyponatremia PLAN- Stop IVF's Simplify po meds as refuses mostly. BMP Advance diet Cariology appreciated, they signed off. Restarted po VPA for SZ and psychosis change Keppra 500 mg IV q12h to po keppra PRN haldol as pt typically is combative and labile at her baseline. Scheduled home dose enalapril and Enalapril as needed systolic greater than 190. Sliding scale insulin Telemetry SCD's IRINA's ASA 81 qd, cancel rectal ASA Heparin 5000 bid for prophylaxis. Dispo: dc soon to [facility]. Tacho Goldberg MD Nov 06, 2016 08:50 Tacho Goldberg MD Nov 06, 2016 08:50
[2016-11-06] MEDS ORDERED: cloNIDine HCL 0.1 MG/24 HR PATCH T-DERMAL SCH (09:00)
[2016-11-06] MEDS: SODIUM CHLORIDE 0.9% FLUSH 10 ML FLUSH IV FLUSH SCH ×2 (09:00→21:14)
[2016-11-06] MEDS ORDERED: HALOPERIDOL 5 MG TAB PO PRN (09:00)
[2016-11-06] MEDS: levETIRAcetam 500 MG TAB PO SCH ×2 (09:00→21:14)
[2016-11-06] MEDS: hydrALAZINE HCL 50 MG TAB PO SCH ×4 (09:17→21:14)
[2016-11-06] MEDS: ASPIRIN 81 MG CHEW TAB CHEW SCH (09:17)
[2016-11-06] MEDS: MEMANTINE HCL 10 MG TAB PO SCH (09:17)
[2016-11-06] MEDS: ENALAPRIL MALEATE 10 MG TAB PO SCH ×2 (09:17→21:14)
[2016-11-06] MEDS: ESCITALOPRAM OXALATE 10 MG TAB PO SCH (09:17)
[2016-11-06] MEDS: HEPARIN SODIUM - SQ 10,000 UNITS/ML VIAL SQ SCH ×2 (09:18→21:14)
[2016-11-06 09:26] LABS: BICARBONATE 27.7 MEQ/L (21.0-32.0); MAGNESIUM 1.9 MG/DL (1.5-2.5); POTASSIUM 4.1 MEQ/L (3.5-5.1)
--- NOTE | 2016-11-06 16:35 | HHI.PR ---
Review/Management Daily Summary 11/03 seen in eraly am when she was asleep and poorly awakened no apparent neuro change eeg brsults seen mri results seen, possible tiny acute left frontal infarct, disproportional to presentation and current status ?seizure vs tiny infarct left frontal check carotid us i agree with blood pressure care, lowering to more reasonable levels dementia and seizure , vpa level ok, also continue keppra 11/04 awoke and screams upon stim then starts following simple commands moves limbs ariana equally vs better motor on right than left discussed with RN will follow, keep keppra as is 11/06 she is awakened and nods to verbal requests but won't verbalize she moves 4 extremities, no distress continue keppra asa and support nursing facility soon Subjective Subjective Comments No acute events reported Active Medications Current Medications Medications (Trade) Dose Ordered Sig/Dayna Route Start Time Stop Time Status Last Admin (Ativan Inj) 0.5 mg Q8H PRN IV 11/02/16 16:00 (Vasotec Inj) 2.5 mg Q6H PRN IV 11/02/16 17:15 11/06/16 04:37 (NS Flush) 2 ml UNSCH PRN IV FLUSH 11/02/16 22:45 (NS Flush) 2 ml BID IV FLUSH 11/03/16 09:00 11/06/16 09:00 (Zofran Inj) 4 mg Q6H PRN IVP 11/02/16 22:45 (Narcan Inj) 0.4 mg UNSCH PRN IV 11/02/16 22:45 (Milk Of Magnesia Liq) 30 ml Q12H PRN PO 11/02/16 22:45 (Senokot) 17.2 mg Q12H PRN PO 11/02/16 22:45 (Dulcolax Supp) 10 mg DAILY PRN RECTAL 11/02/16 22:45 (Lactulose Liq) 30 ml DAILY PRN PO 11/02/16 22:45 (D50w (Vial) Inj) 50 ml UNSCH PRN IV 11/02/16 23:00 Glucagon 1 mg 1 mg UNSCH PRN OTHER 11/02/16 23:00 (Nitroglycerin-Dextrose Inj) 250 ml @ 0 mls/hr TITRATE IV 11/03/16 15:30 (Lopressor Inj) 5 mg Q4H PRN IV PUSH 11/03/16 15:30 11/04/16 08:00 (Apresoline Inj) 20 mg Q2HR PRN IV PUSH 11/03/16 15:45 11/04/16 12:10 (Aspirin Chew) 81 mg DAILY CHEW 11/05/16 11:00 11/06/16 09:17 (Vasotec) 20 mg BID PO 11/04/16 11:00 11/06/16 09:17 (Lexapro) 10 mg DAILY PO 11/05/16 09:00 11/06/16 09:17 (Haldol) 0.5 mg DAILY@1600 PO 11/04/16 16:00 11/05/16 16:21 (Namenda) 10 mg DAILY PO 11/05/16 09:00 11/06/16 09:17 (Brandie-Colace) 2 tab HS PO 11/04/16 21:00 11/05/16 20:34 (Apresoline) 50 mg QID PO 11/04/16 13:00 11/06/16 09:17 (Heparin Inj) 5,000 units Q12HR SQ 11/04/16 12:00 11/06/16 09:18 (Keppra) 500 mg Q12HR PO 11/06/16 09:00 11/06/16 09:00 (Haldol) 5 mg TID PRN PO 11/06/16 09:00 Allergies Allergies Coded Allergies Flagyl (Verified Allergy, Mild, NAUSEA, 07/14/07) Amlodipine (Verified Allergy, Unknown, 09/22/16) Benzonatate (Verified Allergy, Unknown, 09/22/16) Clonidine (Verified Allergy, Unknown, 09/22/16) Fluticasone (Verified Allergy, Unknown, 09/22/16) Labetalol (Verified Allergy, Unknown, 09/22/16) Propranolol (Verified Allergy, Unknown, 09/22/16) Exam I&O / VS 11/05/16 11/05/16 11/06/16 14:59 22:59 06:59 Intake Total 240 ml 381 ml Output Total 150 ml 200 ml Balance 240 ml 231 ml -200 ml Intake Oral 240 ml IV Total 381 ml Output Urine Total 150 ml 200 ml Vital Signs Date Time Temp Pulse Resp B/P Pulse Ox O2 Delivery O2 Flow Rate FiO2 11/06/16 16:01 98.1 64 18 159/71 97 11/06/16 12:00 98.4 75 18 163/72 95 11/06/16 11:27 96 Nasal Cannula 2.00 11/06/16 08:00 98.2 79 18 165/69 97 11/06/16 04:25 98.6 79 15 188/79 93 193/79 11/06/16 04:00 98.7 79 16 188/79 93 11/06/16 01:28 81 11/05/16 20:00 98.9 85 18 166/71 97 11/05/16 19:24 163/70 11/05/16 17:59 95 Nasal Cannula 2.00 11/05/16 17:34 66 Objective Micro and Labs Laboratory Tests Test 11/06/16 08:11 Sodium Level 138 Potassium Level 4.1 Chloride Level 103 Carbon Dioxide Level 27.7 Anion Gap 7 Blood Urea Nitrogen 22 Creatinine 0.72 Estimat Glomerular Filtration 78 Rate Random Glucose 142 Calcium Level 9.4 Magnesium Level 1.9 Chucky Zelaya MD Nov 06, 2016 16:35
[2016-11-06] MEDS: HALOPERIDOL 0.5 MG TAB PO SCH (17:51)
[2016-11-06] MEDS: DOCUSATE SODIUM 50 MG/SENNA 8.6 MG TAB PO SCH (21:14)
[2016-11-07] VITALS (14 sets, daily range): BP systolic 135–205; BP diastolic 62–88; PULSE 68–80; RESP 18–21; TEMP 97.3–99.1; O2SAT 94–98
[2016-11-07] MEDS: ENALAPRILAT 2.5 MG/2 ML VIAL IV PRN (04:07)
[2016-11-07] MEDS: hydrALAZINE HCL 20 MG/ML VIAL IV PUSH PRN (05:38)
[2016-11-07] MEDS: INSULIN ASPART SUPPLEMENTAL SCALE SQ SCH ×4 (06:53→21:00)
[2016-11-07] MEDS: HEPARIN SODIUM - SQ 10,000 UNITS/ML VIAL SQ SCH ×2 (09:00→21:56)
[2016-11-07] MEDS: SODIUM CHLORIDE 0.9% FLUSH 10 ML FLUSH IV FLUSH SCH ×2 (09:00→21:00)
[2016-11-07] MEDS: MEMANTINE HCL 10 MG TAB PO SCH (10:02)
[2016-11-07] MEDS: ESCITALOPRAM OXALATE 10 MG TAB PO SCH (10:02)
[2016-11-07] MEDS: ENALAPRIL MALEATE 10 MG TAB PO SCH ×2 (10:03→21:54)
[2016-11-07] MEDS: ASPIRIN 81 MG CHEW TAB CHEW SCH (10:03)
[2016-11-07] MEDS: levETIRAcetam 500 MG TAB PO SCH ×2 (10:03→21:54)
[2016-11-07] MEDS: hydrALAZINE HCL 50 MG TAB PO SCH ×4 (10:03→21:54)
--- NOTE | 2016-11-07 11:49 | HHI.PR ---
Subjective Remarks Follow up CVA. The patient has reportedly remained agitated. She is still in soft restraints. At the time of my examination, she is sleeping/sedated. Objective Vitals Vital Signs Date Time Temp Pulse Resp B/P Pulse Ox O2 Delivery O2 Flow Rate FiO2 11/07/16 08:08 99.1 70 21 168/75 96 Manual Cuff/Palpation 11/07/16 06:54 77 18 174/79 97 11/07/16 06:11 98.2 71 18 156/62 94 11/07/16 05:55 98.2 75 18 174/74 94 11/07/16 05:39 178/80 11/07/16 05:25 98.2 68 95 180/88 11/07/16 05:17 98.0 73 18 205/86 11/07/16 04:02 97.3 69 18 183/78 94 11/07/16 04:00 95 Nasal Cannula 2.00 11/07/16 00:00 98.3 80 18 135/65 95 11/06/16 21:05 82 11/06/16 20:43 94 Nasal Cannula 2.00 11/06/16 20:00 98.9 82 17 168/70 95 11/06/16 16:01 98.1 64 18 159/71 97 11/06/16 12:00 98.4 75 18 163/72 95 I/O 11/06/16 11/06/16 11/06/16 11/07/16 11/07/16 11/07/16 07:00 15:00 23:00 07:00 15:00 23:00 Intake Total 240 ml 240 ml 180 ml Output Total 200 ml 300 ml 250 ml 300 ml Balance -200 ml -60 ml -10 ml -120 ml Intake Oral 240 ml 240 ml 180 ml Output Urine Total 200 ml 300 ml 250 ml 300 ml # Bowel Movements 0 Result Diagram: 11/05/16 0656 11/06/16 0811 Imaging Last Impressions Carotid Artery Ultrasound 11/03/16 0000 Signed Impressions: Service Date/Time: Thursday, November 03, 2016 22:23 - CONCLUSION: No hemodynamically significant stenosis in either carotid artery.. Peter Clark MD Brain MRI 11/03/16 0000 Signed Impressions: Service Date/Time: Thursday, November 03, 2016 18:44 - CONCLUSION: 1. Tiny infarct left frontal parietal lobe. 2. 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 3. Remote occipital infarcts. Peter Clark MD Head CT 11/02/16 0000 Signed Impressions: Service Date/Time: Wednesday, November 02, 2016 10:46 - CONCLUSION: 1. Atrophy and chronic small vessel ischemic change. 2. No acute intracranial abnormality. Jeffrey Peres Jr., MD Objective Remarks General: Elderly female in no acute distress. Heart: Regular rate and rhythm. No murmur. Lungs: Clear to auscultation bilaterally. No wheezes, rales, or rhonchi. Breathing is nonlabored. Abdomen: Soft, nontender, nondistended. Extremities: No lower extremity edema. Psych: Sleeping/sedated. Urinary Catheter: Yes Assessment to: Continue Summers insert reason: Measure Accurate Output Vascular Central Line Catheter: No A/P Problem List: (1) Stroke ICD Code: I63.9 Status: Acute (2) Agitation ICD Code: R45.1 Status: Acute (3) Encephalopathy ICD Code: G93.40 Status: Acute (4) Dementia with behavioral disturbance ICD Code: F03.91 Status: Chronic (5) Hypertension ICD Code: I10 Status: Chronic Assessment and Plan 1. CVA: Appreciate neurology recommendations. Continue aspirin. Continue PT/OT/ ST. 2. Encephalopathy: Secondary to hypertension, seizures, and CVA. Patient also has underlying dementia. 3. Agitation: Haldol as needed. Has been requiring soft restraints. 4. Hypertension: Continue hydralazine, enalapril. Hydralazine, Vasotec as needed. 5. Diabetes mellitus: Monitor Accu-Cheks and cover with sliding scale insulin. 6. Seizure disorder: Continue valproic acid, Keppra. 7. Dementia: Continue Namenda. 8. DVT prophylaxis: SCDs, IRINA hose, heparin. Discharge Planning Plan for discharge to SNF soon. Maykel Elliott MD Nov 07, 2016 11:49
[2016-11-07] MEDS: VALPROIC ACID 250 MG CAP PO SCH ×2 (15:00→17:03)
[2016-11-07] MEDS: HALOPERIDOL 0.5 MG TAB PO SCH (17:03)
[2016-11-07] MEDS: DOCUSATE SODIUM 50 MG/SENNA 8.6 MG TAB PO SCH (21:54)
[2016-11-08] VITALS (9 sets, daily range): BP systolic 136–181; BP diastolic 64–84; PULSE 65–79; RESP 18–20; TEMP 98–98.8; O2SAT 94–98
[2016-11-08] MEDS: INSULIN ASPART SUPPLEMENTAL SCALE SQ SCH ×4 (06:29→21:06)
[2016-11-08] MEDS: ENALAPRILAT 2.5 MG/2 ML VIAL IV PRN (06:32)
[2016-11-08] MEDS: SODIUM CHLORIDE 0.9% FLUSH 10 ML FLUSH IV FLUSH SCH ×2 (09:00→21:00)
[2016-11-08] MEDS: ENALAPRIL MALEATE 10 MG TAB PO SCH ×2 (09:00→21:07)
[2016-11-08] MEDS: HEPARIN SODIUM - SQ 10,000 UNITS/ML VIAL SQ SCH ×2 (10:10→21:07)
[2016-11-08] MEDS: ASPIRIN 81 MG CHEW TAB CHEW SCH (10:11)
[2016-11-08] MEDS: VALPROIC ACID 250 MG CAP PO SCH ×3 (10:11→17:22)
[2016-11-08] MEDS: hydrALAZINE HCL 50 MG TAB PO SCH ×4 (10:12→21:07)
[2016-11-08] MEDS: levETIRAcetam 500 MG TAB PO SCH ×2 (10:12→21:07)
[2016-11-08] MEDS: ESCITALOPRAM OXALATE 10 MG TAB PO SCH (10:15)
[2016-11-08] MEDS: MEMANTINE HCL 10 MG TAB PO SCH (10:15)
--- NOTE | 2016-11-08 11:24 | HHI.PR ---
Subjective Remarks Follow up CVA. Patient is awake/alert and answers questions by nodding. She does not respond verbally to my questions. Denies pain, dyspnea. Objective Vitals Vital Signs Date Time Temp Pulse Resp B/P Pulse Ox O2 Delivery O2 Flow Rate FiO2 11/08/16 08:08 98.3 65 20 177/78 98 11/08/16 06:36 98.1 71 18 181/79 95 11/08/16 00:00 98.6 73 18 179/84 95 11/07/16 20:00 97.6 76 18 179/80 94 11/07/16 19:40 Nasal Cannula 2.00 11/07/16 19:00 77 11/07/16 16:14 98.6 75 21 167/74 95 11/07/16 13:31 Nasal Cannula 2.00 11/07/16 12:14 98.2 73 21 163/76 98 I/O 11/07/16 11/07/16 11/07/16 11/08/16 11/08/16 11/08/16 07:00 15:00 23:00 07:00 15:00 23:00 Intake Total 180 ml 480 ml 240 ml Output Total 300 ml 350 ml 200 ml 200 ml Balance -120 ml 130 ml 40 ml -200 ml Intake Oral 180 ml 480 ml 240 ml Output Urine Total 300 ml 350 ml 200 ml 200 ml # Bowel Movements 0 0 Result Diagram: 11/05/16 0656 11/06/16 0811 Imaging Last Impressions Carotid Artery Ultrasound 11/03/16 0000 Signed Impressions: Service Date/Time: Thursday, November 03, 2016 22:23 - CONCLUSION: No hemodynamically significant stenosis in either carotid artery.. Peter Clark MD Brain MRI 11/03/16 0000 Signed Impressions: Service Date/Time: Thursday, November 03, 2016 18:44 - CONCLUSION: 1. Tiny infarct left frontal parietal lobe. 2. 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 3. Remote occipital infarcts. Peter Clark MD Head CT 11/02/16 0000 Signed Impressions: Service Date/Time: Wednesday, November 02, 2016 10:46 - CONCLUSION: 1. Atrophy and chronic small vessel ischemic change. 2. No acute intracranial abnormality. Jeffrey Peres Jr., MD Objective Remarks General: Elderly female in no acute distress. In soft restraints. Heart: Regular rate and rhythm. No murmur. Lungs: Clear to auscultation bilaterally. No wheezes, rales, or rhonchi. Breathing is nonlabored. Abdomen: Soft, nontender, nondistended. Extremities: No lower extremity edema. Psych: Awake/alert. Answers questions by nodding. Nonverbal during this exam. Procedures None Urinary Catheter: Yes Assessment to: Continue Summers insert reason: Prolonged Immobilization Vascular Central Line Catheter: No A/P Problem List: (1) Stroke ICD Code: I63.9 Status: Acute (2) Agitation ICD Code: R45.1 Status: Acute (3) Encephalopathy ICD Code: G93.40 Status: Acute (4) Dementia with behavioral disturbance ICD Code: F03.91 Status: Chronic (5) Hypertension ICD Code: I10 Status: Chronic Assessment and Plan 1. CVA: Appreciate neurology recommendations. Continue aspirin. Continue PT/OT/ ST. 2. Encephalopathy: Secondary to hypertension, seizures, and CVA. Patient also reportedly has underlying dementia. 3. Agitation: Haldol as needed. Has been requiring soft restraints. 4. Hypertension: Continue hydralazine, enalapril. Hydralazine, Vasotec as needed. BP still elevated. Patient has multiple reported allergies to antihypertensive medications (amlodipine, clonidine, labetalol, propranolol). 5. Diabetes mellitus: Monitor Accu-Cheks and cover with sliding scale insulin. 6. Seizure disorder: Continue valproic acid, Keppra. 7. Dementia: Continue Namenda. 8. DVT prophylaxis: SCDs, IRINA christina, heparin. Discharge Planning Plan for discharge to SNF soon. Maykel Elliott MD Nov 08, 2016 11:24
[2016-11-08] MEDS: HALOPERIDOL 0.5 MG TAB PO SCH (16:00)
[2016-11-08] MEDS: DOCUSATE SODIUM 50 MG/SENNA 8.6 MG TAB PO SCH (21:07)
[2016-11-09] VITALS (8 sets, daily range): BP systolic 95–192; BP diastolic 64–84; PULSE 57–74; RESP 18–20; TEMP 97.3–98.9; O2SAT 94–97
[2016-11-09] MEDS: INSULIN ASPART SUPPLEMENTAL SCALE SQ SCH ×4 (06:25→21:39)
[2016-11-09] MEDS: ENALAPRILAT 2.5 MG/2 ML VIAL IV PRN ×2 (06:25→16:10)
--- NOTE | 2016-11-09 07:48 | HHI.FPPN ---
Subjective Remarks COUGHING LETHARGIC IN RESTRAINTS COMBATIVE D/W RN Objective Vitals Vital Signs Date Time Temp Pulse Resp B/P Pulse Ox O2 Delivery O2 Flow Rate FiO2 11/09/16 04:00 97.3 57 18 182/80 97 11/08/16 19:48 98.7 77 18 142/65 98 11/08/16 19:37 95 Nasal Cannula 2.00 11/08/16 19:10 Nasal Cannula 1.50 11/08/16 19:00 77 11/08/16 16:00 98.8 79 20 136/64 95 11/08/16 12:10 98.0 71 20 152/72 94 11/08/16 08:08 98.3 65 20 177/78 98 I/O 11/08/16 11/08/16 11/08/16 11/09/16 11/09/16 11/09/16 07:00 15:00 23:00 07:00 15:00 23:00 Intake Total 480 ml Output Total 200 ml 225 ml Balance -200 ml 255 ml Intake Oral 480 ml Output Urine Total 200 ml 225 ml # Bowel Movements 0 0 Result Diagram: 11/05/16 0656 11/06/16 0811 Objective Remarks GENERAL: SKIN: Warm and dry. HEAD: Atraumatic. Normocephalic. EYES: Pupils equal and round. No scleral icterus. No injection or drainage. ENT: No nasal bleeding or discharge. Mucous membranes pink and moist. NECK: Trachea midline. No JVD. CARDIOVASCULAR: Regular rate and rhythm. RESPIRATORY: B R/R Breath sounds equal bilaterally. GASTROINTESTINAL: Abdomen soft, non-tender, nondistended. Hepatic and splenic margins not palpable. MUSCULOSKELETAL: Extremities without clubbing, cyanosis, or edema. No obvious deformities. NEUROLOGICAL: Awake and alert. No obvious cranial nerve deficits. Motor grossly within normal limits. 1 out of 5 muscle strength in the arms and legs. Normal speech. Medications and IVs Current Medications Medications (Trade) Dose Ordered Sig/Dayna Route Start Time Stop Time Status Last Admin (Ativan Inj) 0.5 mg Q8H PRN IV 11/02/16 16:00 (Vasotec Inj) 2.5 mg Q6H PRN IV 11/02/16 17:15 11/09/16 06:25 (NS Flush) 2 ml UNSCH PRN IV FLUSH 11/02/16 22:45 (NS Flush) 2 ml BID IV FLUSH 11/03/16 09:00 11/09/16 08:35 (Zofran Inj) 4 mg Q6H PRN IVP 11/02/16 22:45 (Narcan Inj) 0.4 mg UNSCH PRN IV 11/02/16 22:45 (Milk Of Magnesia Liq) 30 ml Q12H PRN PO 11/02/16 22:45 (Senokot) 17.2 mg Q12H PRN PO 11/02/16 22:45 11/06/16 21:14 (Dulcolax Supp) 10 mg DAILY PRN RECTAL 11/02/16 22:45 (Lactulose Liq) 30 ml DAILY PRN PO 11/02/16 22:45 (D50w (Vial) Inj) 50 ml UNSCH PRN IV 11/02/16 23:00 Glucagon 1 mg 1 mg UNSCH PRN OTHER 11/02/16 23:00 (Nitroglycerin-Dextrose Inj) 250 ml @ 0 mls/hr TITRATE IV 11/03/16 15:30 (Lopressor Inj) 5 mg Q4H PRN IV PUSH 11/03/16 15:30 11/04/16 08:00 (Apresoline Inj) 20 mg Q2HR PRN IV PUSH 11/03/16 15:45 11/07/16 05:38 (Aspirin Chew) 81 mg DAILY CHEW 11/05/16 11:00 11/09/16 08:35 (Vasotec) 20 mg BID PO 11/04/16 11:00 11/09/16 08:35 (Lexapro) 10 mg DAILY PO 11/05/16 09:00 11/09/16 08:35 (Haldol) 0.5 mg DAILY@1600 PO 11/04/16 16:00 11/08/16 16:00 (Namenda) 10 mg DAILY PO 11/05/16 09:00 11/09/16 08:34 (Brandie-Colace) 2 tab HS PO 11/04/16 21:00 11/08/16 21:07 (Apresoline) 50 mg QID PO 11/04/16 13:00 11/09/16 08:34 (Heparin Inj) 5,000 units Q12HR SQ 11/04/16 12:00 11/09/16 08:34 (Keppra) 500 mg Q12HR PO 11/06/16 09:00 11/09/16 08:34 (Haldol) 5 mg TID PRN PO 11/06/16 09:00 (Depakene) 250 mg TID PO 11/07/16 13:00 11/09/16 08:34 A/P Assessment and Plan ASSESSMENT- Altered mental status due to HTN encephalopathy, SZ, and likely CVA Seizure. CVA Respiratory insufficiency Urgent hypertension Hypertensive encephalopathy Diabetes Personality disorder NOS Dementia with psychosis Hyponatremia PLAN- CXR, MAY HAVE PNA AM CBC, BMP IN RESTRAINTS VPA for SZ and psychosis Po keppra PRN haldol as pt typically is combative and labile at her baseline. Scheduled home dose enalapril and Enalapril as needed systolic greater than 190. Sliding scale insulin Telemetry SCD's IRINA's ASA 81 qd Heparin 5000 bid for prophylaxis. Cariology appreciated, they signed off. Dispo: dc soon to [facility]. Tacho Goldberg MD Nov 09, 2016 07:48
[2016-11-09] MEDS: hydrALAZINE HCL 50 MG TAB PO SCH ×5 (08:34→21:15)
[2016-11-09] MEDS: VALPROIC ACID 250 MG CAP PO SCH ×3 (08:34→17:28)
[2016-11-09] MEDS: MEMANTINE HCL 10 MG TAB PO SCH (08:34)
[2016-11-09] MEDS: HEPARIN SODIUM - SQ 10,000 UNITS/ML VIAL SQ SCH ×2 (08:34→21:16)
[2016-11-09] MEDS: levETIRAcetam 500 MG TAB PO SCH ×3 (08:34→21:15)
[2016-11-09] MEDS: ESCITALOPRAM OXALATE 10 MG TAB PO SCH (08:35)
[2016-11-09] MEDS: ASPIRIN 81 MG CHEW TAB CHEW SCH (08:35)
[2016-11-09] MEDS: ENALAPRIL MALEATE 10 MG TAB PO SCH ×3 (08:35→21:15)
[2016-11-09] MEDS: SODIUM CHLORIDE 0.9% FLUSH 10 ML FLUSH IV FLUSH SCH ×2 (08:35→21:17)
[2016-11-09 12:11] LABS: AUTOMATED NEUTROPHIL # 4.7 TH/MM3 (1.8-7.7); BASOPHIL # 0.1 TH/MM3 (0-0.2); BASOPHIL % 1.1 % (0.0-2.0); EOSINOPHIL # 0.1 TH/MM3 (0-0.4); EOSINOPHIL % 1.7 % (0.0-4.0); HEMATOCRIT 34.7 % (35.0-46.0); LYMPH % 12.5 % (9.0-44.0); LYMPHOCYTE # 0.8 TH/MM3 (1.0-4.8); MEAN CELL VOLUME 97.3 FL (80.0-100.0); MEAN CORPUSCULAR HEMOGLOBIN 33.4 PG (27.0-34.0); MEAN CORPUSCULAR HGB CONC 34.3 % (32.0-36.0); MONO % 10.9 % (0.0-8.0); NEUT % 73.8 % (16.0-70.0); PLATELET COUNT 272 TH/MM3 (150-450); RED BLOOD COUNT 3.57 MIL/MM3 (4.00-5.30); RED CELL DISTRIBUTION WIDTH 13.8 % (11.6-17.2); WHITE BLOOD COUNT 6.4 TH/MM3 (4.0-11.0)
[2016-11-09 12:13] LABS: HEMO FLAGS DIFF FINAL
[2016-11-09 12:43] LABS: BICARBONATE 32.1 MEQ/L (21.0-32.0); POTASSIUM 3.5 MEQ/L (3.5-5.1)
--- NOTE | 2016-11-09 14:12 | RADRPT ---
EXAM DATE/TIME: 11/09/2016 13:45 [place] COMPARISON: No previous studies available for comparison. INDICATIONS : Short of breath. MEDICAL HISTORY : Hypertension. Stroke. Cerebrovascular disease. SURGICAL HISTORY : Tubal ligation. thyroidectomy ENCOUNTER: Subsequent ACUITY: 1 week PAIN SCORE: 0/10 LOCATION: Bilateral chest FINDINGS: Left lower lobe patchy airspace disease. An excellent is enlarged. Pulmonary vascularity is within no rmal limits. Bony thorax is intact. CONCLUSION: 1. Patchy left lower lobe airspace disease likely reflects atelectasis although developing pneumonia cannot be excluded in the appropriate clinical setting. 2. Cardiomegaly. Wu Castelan MD on November 09, 2016 at 14:09 Board Certified Radiologist. This report was verified electronically.
[2016-11-09] MEDS: HALOPERIDOL 0.5 MG TAB PO SCH (16:10)
[2016-11-09] MEDS: DOCUSATE SODIUM 50 MG/SENNA 8.6 MG TAB PO SCH ×2 (21:00→21:14)
[2016-11-10] VITALS (12 sets, daily range): BP systolic 135–192; BP diastolic 67–86; PULSE 62–80; RESP 18–20; TEMP 97.2–99; O2SAT 93–96
[2016-11-10] MEDS: ENALAPRILAT 2.5 MG/2 ML VIAL IV PRN ×3 (05:08→23:00)
[2016-11-10] MEDS: HEPARIN SODIUM - SQ 10,000 UNITS/ML VIAL SQ SCH ×2 (07:57→20:14)
[2016-11-10] MEDS: ENALAPRIL MALEATE 10 MG TAB PO SCH ×2 (07:57→20:12)
[2016-11-10] MEDS: VALPROIC ACID 250 MG CAP PO SCH ×2 (07:57→20:13)
[2016-11-10] MEDS: ESCITALOPRAM OXALATE 10 MG TAB PO SCH (07:58)
[2016-11-10] MEDS: hydrALAZINE HCL 50 MG TAB PO SCH (07:58)
[2016-11-10] MEDS: MEMANTINE HCL 10 MG TAB PO SCH (07:58)
[2016-11-10] MEDS: SODIUM CHLORIDE 0.9% FLUSH 10 ML FLUSH IV FLUSH SCH ×2 (07:58→20:30)
[2016-11-10] MEDS: ASPIRIN 81 MG CHEW TAB CHEW SCH (07:58)
[2016-11-10] MEDS: levETIRAcetam 500 MG TAB PO SCH ×2 (07:58→20:12)
--- NOTE | 2016-11-10 09:56 | HHI.FPPN ---
Subjective Remarks MORE ALERT SEEMS TO BE AT BASELINE NO BM TO ACCOUNT FOR D/W RN'S OUT OF RESTRAINTS THIS AM Objective Vitals Vital Signs Date Time Temp Pulse Resp B/P Pulse Ox O2 Delivery O2 Flow Rate FiO2 11/10/16 09:21 62 11/10/16 08:05 Nasal Cannula 2.00 11/10/16 08:00 98.4 62 20 192/81 95 11/10/16 06:45 184/80 11/10/16 06:40 62 192/85 94 11/10/16 05:41 97.7 63 19 180/86 94 11/10/16 00:31 98.1 67 18 135/73 95 11/09/16 20:50 98.1 71 18 136/64 94 11/09/16 20:00 72 11/09/16 19:00 2.00 11/09/16 18:08 Nasal Cannula 2.00 11/09/16 16:00 98.9 74 20 95/84 96 11/09/16 12:00 97.6 70 20 160/74 97 11/09/16 11:26 65 11/09/16 10:01 95 Nasal Cannula 2.00 I/O 11/09/16 11/09/16 11/09/16 11/10/16 11/10/16 11/10/16 07:00 15:00 23:00 07:00 15:00 23:00 Intake Total 236 ml 236 ml Output Total 625 ml 400 ml Balance -389 ml -400 ml 236 ml Intake Oral 236 ml 236 ml Output Urine Total 625 ml 400 ml Result Diagram: 11/09/16 1130 11/09/16 1130 Imaging Last 72 hours Impressions Chest X-Ray 11/09/16 0000 Signed Impressions: Service Date/Time: Wednesday, November 09, 2016 13:45 - CONCLUSION: 1. Patchy left lower lobe airspace disease likely reflects atelectasis although developing pneumonia cannot be excluded in the appropriate clinical setting. 2. Cardiomegaly. Wu Castelan MD Objective Remarks GENERAL: SKIN: Warm and dry. HEAD: Atraumatic. Normocephalic. EYES: Pupils equal and round. No scleral icterus. No injection or drainage. ENT: No nasal bleeding or discharge. Mucous membranes pink and moist. NECK: Trachea midline. No JVD. CARDIOVASCULAR: Regular rate and rhythm. RESPIRATORY: B R/R Breath sounds equal bilaterally. GASTROINTESTINAL: Abdomen soft, non-tender, nondistended. Hepatic and splenic margins not palpable. MUSCULOSKELETAL: Extremities without clubbing, cyanosis, or edema. No obvious deformities. NEUROLOGICAL: Awake and alert. No obvious cranial nerve deficits. Motor grossly within normal limits. 1 out of 5 muscle strength in the arms and legs. Normal speech. Medications and IVs Current Medications Medications (Trade) Dose Ordered Sig/Dayna Route Start Time Stop Time Status Last Admin (Ativan Inj) 0.5 mg Q8H PRN IV 11/02/16 16:00 (Vasotec Inj) 2.5 mg Q6H PRN IV 11/02/16 17:15 11/10/16 05:08 (NS Flush) 2 ml UNSCH PRN IV FLUSH 11/02/16 22:45 11/09/16 16:10 (NS Flush) 2 ml BID IV FLUSH 11/03/16 09:00 11/10/16 07:58 (Zofran Inj) 4 mg Q6H PRN IVP 11/02/16 22:45 (Narcan Inj) 0.4 mg UNSCH PRN IV 11/02/16 22:45 (Milk Of Magnesia Liq) 30 ml Q12H PRN PO 11/02/16 22:45 (Senokot) 17.2 mg Q12H PRN PO 11/02/16 22:45 11/06/16 21:14 (Dulcolax Supp) 10 mg DAILY PRN RECTAL 11/02/16 22:45 (Lactulose Liq) 30 ml DAILY PRN PO 11/02/16 22:45 (D50w (Vial) Inj) 50 ml UNSCH PRN IV 11/02/16 23:00 Glucagon 1 mg 1 mg UNSCH PRN OTHER 11/02/16 23:00 (Nitroglycerin-Dextrose Inj) 250 ml @ 0 mls/hr TITRATE IV 11/03/16 15:30 (Lopressor Inj) 5 mg Q4H PRN IV PUSH 11/03/16 15:30 11/04/16 08:00 (Apresoline Inj) 20 mg Q2HR PRN IV PUSH 11/03/16 15:45 11/07/16 05:38 (Aspirin Chew) 81 mg DAILY CHEW 11/05/16 11:00 8/1/17 07:58 (Vasotec) 20 mg BID PO 11/04/16 11:00 11/10/16 07:57 (Lexapro) 10 mg DAILY PO 11/05/16 09:00 11/10/16 07:58 (Haldol) 0.5 mg DAILY@1600 PO 11/04/16 16:00 11/09/16 16:10 (Namenda) 10 mg DAILY PO 11/05/16 09:00 11/10/16 07:58 (Brandie-Colace) 2 tab HS PO 11/04/16 21:00 11/08/16 21:07 (Apresoline) 50 mg QID PO 11/04/16 13:00 11/10/16 07:58 (Heparin Inj) 5,000 units Q12HR SQ 11/04/16 12:00 11/10/16 07:57 (Keppra) 500 mg Q12HR PO 11/06/16 09:00 11/10/16 07:58 (Haldol) 5 mg TID PRN PO 11/06/16 09:00 (Depakene) 250 mg TID PO 11/07/16 13:00 11/10/16 07:57 A/P Assessment and Plan ASSESSMENT- Altered mental status due to HTN encephalopathy, SZ, and likely CVA Seizure. CVA Respiratory insufficiency Urgent hypertension Hypertensive encephalopathy PNA CXR+ Diabetes Personality disorder NOS Dementia with psychosis Hyponatremia PLAN- INCREASE DEPAKOTE TODAY START ALDOMET INCREASE HYDRALAZINE MONITOR PNA/ASPIRATION OOB TODAY ABH RX IN CHART AM CBC, BMP OFF RESTRAINTS DC BLOUNT AND HOPEFULLY DC TOMORROW IF URINATES AND HAS BM AND NO RESTRAINTS INCREASE DEPAKOTE, VPA for SZ and psychosis Po keppra PRN haldol Scheduled home dose enalapril and Enalapril as needed systolic greater than 190. Sliding scale insulin Telemetry SCD's IRINA's ASA 81 qd Heparin 5000 bid for prophylaxis. Cariology appreciated, they signed off. Dispo: dc soon to [facility]. Tacho Goldberg MD Nov 10, 2016 09:56
[2016-11-10 10:29] LABS: AUTOMATED NEUTROPHIL # 4.6 TH/MM3 (1.8-7.7); BASOPHIL # 0.1 TH/MM3 (0-0.2); BASOPHIL % 1.4 % (0.0-2.0); EOSINOPHIL # 0.2 TH/MM3 (0-0.4); EOSINOPHIL % 2.8 % (0.0-4.0); HEMATOCRIT 35.3 % (35.0-46.0); HEMO FLAGS DIFF FINAL; LYMPH % 17.3 % (9.0-44.0); LYMPHOCYTE # 1.2 TH/MM3 (1.0-4.8); MEAN CELL VOLUME 98.2 FL (80.0-100.0); MEAN CORPUSCULAR HEMOGLOBIN 33.4 PG (27.0-34.0); MONO % 11.2 % (0.0-8.0); NEUT % 67.3 % (16.0-70.0); PLATELET COUNT 326 TH/MM3 (150-450); RED BLOOD COUNT 3.59 MIL/MM3 (4.00-5.30); RED CELL DISTRIBUTION WIDTH 13.9 % (11.6-17.2); WHITE BLOOD COUNT 6.8 TH/MM3 (4.0-11.0)
[2016-11-10 10:39] LABS: BICARBONATE 32.5 MEQ/L (21.0-32.0); POTASSIUM 3.8 MEQ/L (3.5-5.1)
[2016-11-10] MEDS: INSULIN ASPART SUPPLEMENTAL SCALE SQ SCH ×4 (11:03→23:01)
[2016-11-10] MEDS ORDERED: MAGNESIUM HYDROXIDE SUSP 30 ML CUP PO ONE (11:15)
--- NOTE | 2016-11-10 11:55 | HHI.HCPN ---
Reason for visit a. To assist with evaluation and management of symptoms including: encephalopathy b. To assist medical decision maker(s) with: better understanding of current medical conditions; weighing benefits/burdens of medical treatment options; making medical treatment decisions. Subjective/Interval History Patient seen today to follow-up on comfort, encephalopathy. Stable, slow Improvement over the weekend, transferred out of the ICU. Some episodes of agitation. Speech therapy has evaluated patient continues to tolerate pure diet with thin liquids. Able to make some basic needs known. CXR yesterday with patchy left lower lobe airspace disease atelectasis versus developing pneumonia. O2 sats good on 2 L nasal cannula. Labs today unremarkable. Discharge planning for DC to SNF and coming days. Patient seen in room no visitors present. She is seated in a recliner chair at bedside. She is alert, watching television. She smiles, at times with flat affect, cooperative., Able to name children. Reports she is in the hospital "to get better"-otherwise insight is poor. She tells me she ate breakfast though doesn't remember what she ate. She denies pain. She denies dyspnea. . Objective Vital Signs Date Time Temp Pulse Resp B/P Pulse Ox O2 Delivery O2 Flow Rate FiO2 11/10/16 11:02 96 Nasal Cannula 2.00 11/10/16 09:21 62 11/10/16 08:05 Nasal Cannula 2.00 11/10/16 08:00 98.4 62 20 192/81 95 11/10/16 06:45 184/80 11/10/16 06:40 62 192/85 94 11/10/16 05:41 97.7 63 19 180/86 94 11/10/16 00:31 98.1 67 18 135/73 95 11/09/16 20:50 98.1 71 18 136/64 94 11/09/16 20:00 72 11/09/16 19:00 2.00 11/09/16 18:08 Nasal Cannula 2.00 11/09/16 16:00 98.9 74 20 95/84 96 11/09/16 12:00 97.6 70 20 160/74 97 Intake & Output 11/10/16 11/10/16 06:59 18:59 Intake Total 236 ml Output Total 400 ml Balance -400 ml 236 ml Intake Oral 236 ml Output Urine Total 400 ml Physical Exam CONSTITUTIONAL/GENERAL: This is an adequately nourished patient, in no apparent distress, lethargic TUBES/LINES/DRAINS: PIV left AC, nasal cannula O2, reynoso catheter CARDIOVASCULAR: Regular rate and rhythm without murmurs. Peripheral pulses symmetric. RESPIRATORY/CHEST: Symmetric, unlabored respirations, on 2L NC. Clear to auscultation. Breath sounds equal bilaterally. GASTROINTESTINAL: Abdomen soft, non-tender, nondistended. No hepato-splenomegaly , or palpable masses. No guarding. Bowel sounds present. NEUROLOGICAL: alert, partially oriented. Forgetful. Poor insight. Cooperative. Moves all 4 extremities. PSYCHIATRIC: No obvious anxiety/depression. no apparent hallucinations or other psychotic thought process. . Diagnostic Tests Laboratory Laboratory Tests Test 11/09/16 11/10/16 11:30 08:35 White Blood Count 6.4 TH/MM3 6.8 TH/MM3 (4.0-11.0) (4.0-11.0) Red Blood Count 3.57 MIL/MM3 3.59 MIL/MM3 (4.00-5.30) (4.00-5.30) Hemoglobin 11.9 GM/DL 12.0 GM/DL (11.6-15.3) (11.6-15.3) Hematocrit 34.7 % 35.3 % (35.0-46.0) (35.0-46.0) Mean Corpuscular Volume 97.3 FL 98.2 FL (80.0-100.0) (80.0-100.0) Mean Corpuscular Hemoglobin 33.4 PG 33.4 PG (27.0-34.0) (27.0-34.0) Mean Corpuscular Hemoglobin 34.3 % 34.0 % Concent (32.0-36.0) (32.0-36.0) Red Cell Distribution Width 13.8 % 13.9 % (11.6-17.2) (11.6-17.2) Platelet Count 272 TH/MM3 326 TH/MM3 (150-450) (150-450) Mean Platelet Volume 9.5 FL 9.8 FL (7.0-11.0) (7.0-11.0) Neutrophils (%) (Auto) 73.8 % 67.3 % (16.0-70.0) (16.0-70.0) Lymphocytes (%) (Auto) 12.5 % 17.3 % (9.0-44.0) (9.0-44.0) Monocytes (%) (Auto) 10.9 % 11.2 % (0.0-8.0) (0.0-8.0) Eosinophils (%) (Auto) 1.7 % (0.0-4.0) 2.8 % (0.0-4.0) Basophils (%) (Auto) 1.1 % (0.0-2.0) 1.4 % (0.0-2.0) Neutrophils # (Auto) 4.7 TH/MM3 4.6 TH/MM3 (1.8-7.7) (1.8-7.7) Lymphocytes # (Auto) 0.8 TH/MM3 1.2 TH/MM3 (1.0-4.8) (1.0-4.8) Monocytes # (Auto) 0.7 TH/MM3 0.8 TH/MM3 (0-0.9) (0-0.9) Eosinophils # (Auto) 0.1 TH/MM3 0.2 TH/MM3 (0-0.4) (0-0.4) Basophils # (Auto) 0.1 TH/MM3 0.1 TH/MM3 (0-0.2) (0-0.2) CBC Comment DIFF FINAL DIFF FINAL Differential Comment Sodium Level 137 MEQ/L 138 MEQ/L (136-145) (136-145) Potassium Level 3.5 MEQ/L 3.8 MEQ/L (3.5-5.1) (3.5-5.1) Chloride Level 100 MEQ/L 100 MEQ/L (98-107) (98-107) Carbon Dioxide Level 32.1 MEQ/L 32.5 MEQ/L (21.0-32.0) (21.0-32.0) Anion Gap 5 MEQ/L (5-15) 6 MEQ/L (5-15) Blood Urea Nitrogen 20 MG/DL (7-18) 18 MG/DL (7-18) Creatinine 0.75 MG/DL 0.75 MG/DL (0.50-1.00) (0.50-1.00) Estimat Glomerular Filtration 74 ML/MIN (>89) 74 ML/MIN (>89) Rate Random Glucose 130 MG/DL 105 MG/DL (74-106) (74-106) Calcium Level 9.3 MG/DL 9.8 MG/DL (8.5-10.1) (8.5-10.1) Valproic Acid (Depakene) Level 35 MCG/ML (50-100) Result Diagram: 11/10/16 0835 11/10/16 0835 Imaging Last Impressions Chest X-Ray 11/09/16 0000 Signed Impressions: Service Date/Time: Wednesday, November 09, 2016 13:45 - CONCLUSION: 1. Patchy left lower lobe airspace disease likely reflects atelectasis although developing pneumonia cannot be excluded in the appropriate clinical setting. 2. Cardiomegaly. Wu Castelan MD Carotid Artery Ultrasound 11/03/16 0000 Signed Impressions: Service Date/Time: Thursday, November 03, 2016 22:23 - CONCLUSION: No hemodynamically significant stenosis in either carotid artery.. Peter Clark MD Brain MRI 11/03/16 0000 Signed Impressions: Service Date/Time: Thursday, November 03, 2016 18:44 - CONCLUSION: 1. Tiny infarct left frontal parietal lobe. 2. 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 3. Remote occipital infarcts. Peter Clark MD Head CT 11/02/16 0000 Signed Impressions: Service Date/Time: Wednesday, November 02, 2016 10:46 - CONCLUSION: 1. Atrophy and chronic small vessel ischemic change. 2. No acute intracranial abnormality. Jeffrey Peres Jr., MD Assessment and Plan Disease Oriented Problem List: (1) Dementia with behavioral disturbance (2) Hypertension (3) Seizure (4) Stroke Symptom Scale: (1) Encephalopathy (2) Agitation Pertinent Non-Medical Issues Psychosocial:Recently , with dementia recently . Lives at [facility]. Originally from [place]. Completed a high school education. Worked for the [employer] for over 30 years, retired 6 years ago. twice, the first ended in divorce, her second recently . 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 This designates dtr Wendi, son Blaze. Upon phone discussion w dtr Wendi, she informs that September 2016 during psych admission, they completed paperwork with a cloth spreader present here in psych unit appointing her as guardian for pt, including healthcare. She does not have copies of this. Will need to obtain documentation of this, otherwise per statutes legal decision making would fall to majority of available children. Ethical issues impacting care: Important Contacts Daughter Wendi Harry [phone] . Prognosis Pt was admitted for AMS poss seizure vs CVA. No further seizures. Possible tiny CVA per MRI findings. Pt has been stable. Hx of dementia, though is still high functioning, not end stage. Based on current condition/ assessments , appears she can recover from current acute issues and return to prior NH setting. She will be expected to have progression and decline r/t underlying dementia diagnosis, though does not currently have end stage disease process. 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 This designates dtr Wendi, son Blaze. Upon phone discussion w kader Wendi, she informs that September 2016 during psych admission, they completed paperwork with a cloth spreader present here in psych unit appointing her as guardian for pt, including healthcare. Per later follow up, this was a temporary guardianship d/t [place] act and is no longer applicable. Per [place] statutes legal decision making would fall to majority of adult children . * Goals: Goals aggressive, as long as pt can return to prior level of interaction and quality time w family, family feels she would want to continue to pursue available treatments. * CODE STATUS: Full * SYMPTOMS: --encephalopathy- ? post ictal, tiny CVA. carotid U/s negative. improving during past several days. will cont to evaluate. Neurology following. -- poor appetite- dtr reports pt usually eats well (but on her own terms) appears well nourished. intermittently refusing PO for nursing, this is fluctuating, eating 60% of recent meals. not warranting feeding tube at this time. -- hx combativeness/agitation episodes. Has always had a "stubborn" personality per dtr. Increase in behaviors at nursing facility. some episodes during weekend-- did not require PRN ativan . On scheduled haldol , namenda, lexapro, PRN ativan available (has not required as of yet) . * Palliative care will continue to follow during hospital course as condition evolves, to assist patient/decision-maker with understanding of medical conditions, weighing benefits/burdens of treatment options, for clarification of goals of treatment. Additionally will assist with any symptoms of palliative concern Time Spent Total Floor Time (mins): 20 Attestation To help prompt me to consider important information that might be impacting today's encounter and assessment, information from prior notes written by myself or my colleagues may have been "brought forward" into today's note. My signature on this note, however, is an attestation that I personally performed the exam, history, and/or decision-making noted today, and, unless otherwise indicated, the interactions with patient, family, and staff as well as the review of records all occurred today. I also attest that the listed assessment and stated plan reflect my best clinical judgment today based on the combination of historical information, prior notes, and today's exam/ interactions. When time spent is documented, it refers only to time spent today by the signer, or if indicated, combined time spent today by collaborating physician/nurse practitioner. Alicia Dye Nov 10, 2016 11:55
[2016-11-10] MEDS: METHYLDOPA 250 MG TAB PO SCH ×2 (11:59→20:13)
[2016-11-10] MEDS: hydrALAZINE HCL 100 MG TAB PO SCH ×2 (12:00→18:13)
[2016-11-10] MEDS: HALOPERIDOL 0.5 MG TAB PO SCH (15:40)
[2016-11-10] MEDS: DOCUSATE SODIUM 50 MG/SENNA 8.6 MG TAB PO SCH (20:13)
[2016-11-11] VITALS (8 sets, daily range): BP systolic 146–189; BP diastolic 64–82; PULSE 64–70; RESP 16–20; TEMP 97.5–98.8; O2SAT 93–98
[2016-11-11] MEDS: INSULIN ASPART SUPPLEMENTAL SCALE SQ SCH ×4 (06:20→21:00)
[2016-11-11] MEDS ORDERED: HYDR-3801 PO (08:46)
[2016-11-11] MEDS ORDERED: METH250T PO (08:46)
[2016-11-11] MEDS ORDERED: LEVE500 PO (08:46)
[2016-11-11] MEDS ORDERED: VALP250 PO (08:46)
--- NOTE | 2016-11-11 08:46 | HHI.DCPOC ---
Discharge Care Plan Diagnosis: (1) Seizure (2) Stroke (3) Encephalopathy (4) Hypertension (5) Dementia with behavioral disturbance (6) Agitation (7) Hypokalemia (8) Hyperlipidemia (9) Urinary tract infection Goals to Promote Your Health * To prevent worsening of your condition and complications * To maintain your health at the optimal level Directions to Meet Your Goals Take your medications as prescribed Follow your dietary instruction Follow activity as directed Keep your appointments as scheduled Take your immunizations and boosters as scheduled If your symptoms worsen call your PCP, if no PCP go to Urgent Care Center or Emergency Room Smoking is Dangerous to Your Health. Avoid second hand smoke Call the 24-hour hour crisis hotline for domestic abuse at Tacho Goldberg MD Nov 11, 2016 08:46
--- NOTE | 2016-11-11 08:47 | HHI.DS ---
Discharge Summary Admission Date Nov 02, 2016 at 11:08 Discharge Date: Nov 11, 2016 Admitting Diagnosis stroke alert/seizure (1) Stroke (2) Agitation (3) Encephalopathy (4) Dementia with behavioral disturbance (5) Hypertension CBC/BMP: 11/10/16 0835 11/10/16 0835 Significant Findings Laboratory Tests Test 11/09/16 11/10/16 11:30 08:35 Red Blood Count 3.57 MIL/MM3 3.59 MIL/MM3 (4.00-5.30) (4.00-5.30) Hematocrit 34.7 % (35.0-46.0) Neutrophils (%) (Auto) 73.8 % (16.0-70.0) Monocytes (%) (Auto) 10.9 % 11.2 % (0.0-8.0) (0.0-8.0) Lymphocytes # (Auto) 0.8 TH/MM3 (1.0-4.8) Carbon Dioxide Level 32.1 MEQ/L 32.5 MEQ/L (21.0-32.0) (21.0-32.0) Blood Urea Nitrogen 20 MG/DL (7-18) Estimat Glomerular Filtration 74 ML/MIN (>89) 74 ML/MIN (>89) Rate Random Glucose 130 MG/DL (74-106) Valproic Acid (Depakene) Level 35 MCG/ML (50-100) Imaging Last 72 hours Impressions Chest X-Ray 11/09/16 0000 Signed Impressions: Service Date/Time: Wednesday, November 09, 2016 13:45 - CONCLUSION: 1. Patchy left lower lobe airspace disease likely reflects atelectasis although developing pneumonia cannot be excluded in the appropriate clinical setting. 2. Cardiomegaly. Wu Castelan MD PE at Discharge GENERAL: SKIN: Warm and dry. HEAD: Atraumatic. Normocephalic. EYES: Pupils equal and round. No scleral icterus. No injection or drainage. ENT: No nasal bleeding or discharge. Mucous membranes pink and moist. NECK: Trachea midline. No JVD. CARDIOVASCULAR: Regular rate and rhythm. RESPIRATORY: No accessory muscle use. Clear to auscultation. Breath sounds equal bilaterally. GASTROINTESTINAL: Abdomen soft, non-tender, nondistended. Hepatic and splenic margins not palpable. MUSCULOSKELETAL: Extremities without clubbing, cyanosis, or edema. No obvious deformities. NEUROLOGICAL: Awake and alert. No obvious cranial nerve deficits. Motor grossly within normal limits. 2 out of 5 muscle strength in the arms and legs. Normal speech. PSYCHIATRIC: Appropriate mood and affect; insight and judgment normal. Hospital Course 81 Y CF, ADMIT WITH - Altered mental status due to HTN encephalopathy, SZ, and likely CVA Seizure. CVA Respiratory insufficiency Urgent hypertension Hypertensive encephalopathy PNA CXR+ Diabetes Personality disorder NOS Dementia with psychosis Hyponatremia HOSPITAL COURSE AND PLAN WAS TO - INCREASE DEPAKOTE STARTED ALDOMET INCREASED HYDRALAZINE MONITOR PNA/ASPIRATION OOB ABH RX IN CHART OFF RESTRAINTS DCD BLOUNT AND HOPEFULLY DC TOMORROW IF URINATES AND HAS BM AND NO RESTRAINTS INCREASED DEPAKOTE, VPA for SZ and psychosis Po keppra PRN haldol Scheduled home dose enalapril and Enalapril as needed systolic greater than 190. Sliding scale insulin Telemetry SCD's IRINA's ASA 81 qd Heparin 5000 bid for prophylaxis. Cariology appreciated, they signed off. Dispo: dc PT NEEDS TO DC, GETTING WEAKER INPT, I DISCHARGED PT TO SNF, POA DENIED SNF AND AGREES ONLY TO [facility]TER Discharge Disposition: Discharge to SNF Discharge Instructions DIET: Follow Instructions for: Heart Healthy Diet Activities you can perform: Regular-No Restrictions Follow up Referrals: PCP Follow-up - [address] COTTER New Medications: Hydralazine (Hydralazine) 100 Mg Tab 100 MG PO TID HTN Days 30 Ref 11 TAB Levetiracetam (Keppra) 500 Mg Tab 500 MG PO Q12HR SZ Days 30 Ref 11 TAB Methyldopa (Methyldopa) 250 Mg Tab 250 MG PO Q12HR htn Days 30 Ref 11 TAB Valproic Acid (Depakene) 250 Mg Cap 500 MG PO BID sz Days 30 Ref 11 CAP Continued Medications: Aspirin (Aspirin Low Strength) 81 Mg Chew 81 MG CHEW DAILY health #30 Ref 0 EA Enalapril (Enalapril) 10 Mg Tab 20 MG PO 2 bid health #120 Ref 0 TAB Escitalopram (Escitalopram) 10 Mg Tab 10 MG PO DAILY health #30 Ref 0 TAB Haloperidol (Haloperidol) 0.5 Mg Tab 0.5 MG PO DAILY@1600 health #30 Ref 0 TAB Ketoconazole Topical Shampoo (Nizoral Topical Shampoo) 2% Sham 1 APPLIC EXTERNAL DAILY health #1 Ref 0 BOTTLE Memantine (Namenda) 10 Mg Tab 10 MG PO DAILY Alzheimer Disease #30 Ref 0 TAB Metformin (Metformin) 500 Mg Tab 500 MG PO BIDPC With meals Blood Sugar Management #60 Ref 0 TAB Sennosides-Docusate Sodium (Senna S) 8.6-50 Mg Tab 2 TAB PO HS Discontinued Medications: Fentanyl Patch 72 HR (Fentanyl Patch 72 HR) 12 Mcg/Hr Patch 1 PATCH T-DERMAL Q72H Remove old patch when new one placed. Pain Management #10 Ref 0 PATCH Valproic Acid (Valproic Acid) 250 Mg Cap 250 MG PO TID #90 Ref 0 CAP Tacho Cotter MD Nov 11, 2016 08:47
[2016-11-11] MEDS: ASPIRIN 81 MG CHEW TAB CHEW SCH (08:57)
[2016-11-11] MEDS: ESCITALOPRAM OXALATE 10 MG TAB PO SCH (08:57)
[2016-11-11] MEDS: levETIRAcetam 500 MG TAB PO SCH ×2 (08:57→21:18)
[2016-11-11] MEDS: ENALAPRIL MALEATE 10 MG TAB PO SCH ×2 (08:58→21:18)
[2016-11-11] MEDS: MEMANTINE HCL 10 MG TAB PO SCH (08:58)
[2016-11-11] MEDS: hydrALAZINE HCL 100 MG TAB PO SCH ×3 (08:58→17:26)
[2016-11-11] MEDS: HEPARIN SODIUM - SQ 10,000 UNITS/ML VIAL SQ SCH ×2 (08:58→21:19)
[2016-11-11] MEDS: VALPROIC ACID 250 MG CAP PO SCH ×2 (09:19→21:19)
[2016-11-11] MEDS: METHYLDOPA 250 MG TAB PO SCH ×2 (09:19→21:19)
[2016-11-11] MEDS: SODIUM CHLORIDE 0.9% FLUSH 10 ML FLUSH IV FLUSH SCH ×2 (10:39→21:19)
[2016-11-11] MEDS: HALOPERIDOL 0.5 MG TAB PO SCH (16:37)
[2016-11-11] MEDS: DOCUSATE SODIUM 50 MG/SENNA 8.6 MG TAB PO SCH (21:18)
[2016-11-12] VITALS: BP 173/74; PULSE 64; RESP 20; TEMP 98.2; O2SAT 97
[2016-11-12] MEDS: ENALAPRILAT 2.5 MG/2 ML VIAL IV PRN (01:41)
[2016-11-12 04:00] VITALS: BP 182/75; PULSE 58; RESP 20; TEMP 97.7; O2SAT 96
[2016-11-12] MEDS: INSULIN ASPART SUPPLEMENTAL SCALE SQ SCH (06:35)
[2016-11-12] MEDS ORDERED: METH250T PO (07:51)
--- NOTE | 2016-11-12 07:54 | HHI.FF ---
Face to Face Verification Diagnosis: (1) Seizure (2) Stroke (3) Encephalopathy (4) Hypertension (5) Agitation (6) Dementia with behavioral disturbance Physical Therapy Order: Evaluate and Treat, Improve ambulation, Strength and gait training Occupational Therapy Order: Evaluate and Treat, Improve ADL, Gross motor coordination, Fine motor coordination Speech Therapy Order: To Improve: Speech and communication skills, Cognitive skills, Swallowing Home Health Nursing Order: Medical education Medication education-adverse effect Nursing assessment with vital signs Home Health Aide Order: To Assist In: Bathing and personal care, transmission systems operator and meal prep Outdoor Power Equipment Mechanic Order: To Evaluate: Living conditions/environment, Support services Order: To Provide: Long range planning, Community services I have seen patient Leidy Meade on 11/12/16. My clinical findings support the need for the requested home health care services because: Ltd mobility - disease progression Patient has SOB Deconditioned w/ increased weakness Med compliance is questionable Limited ability to care for self Need for psychosocial assistance Impaired cognition/judgement High risk of falls I certify that my clinical findings support that this patient is homebound because: Impaired cognitive ability/safety Unsteady gait/balance Unsafe to leave home unassisted Need for psychosocial assistance [id number] bed/chair Unable to use public transportation Poor cardiac reserve Tacho Goldberg MD Nov 12, 2016 07:54
[2016-11-12 08:00] VITALS: BP 192/82; PULSE 69; RESP 18; TEMP 97.9; O2SAT 100
[2016-11-12] MEDS: SODIUM CHLORIDE 0.9% FLUSH 10 ML FLUSH IV FLUSH SCH (09:00)
[2016-11-12] MEDS: MEMANTINE HCL 10 MG TAB PO SCH (09:41)
[2016-11-12] MEDS: ASPIRIN 81 MG CHEW TAB CHEW SCH (09:41)
[2016-11-12] MEDS: ESCITALOPRAM OXALATE 10 MG TAB PO SCH (09:41)
[2016-11-12] MEDS: levETIRAcetam 500 MG TAB PO SCH (09:41)
[2016-11-12] MEDS: hydrALAZINE HCL 100 MG TAB PO SCH (09:41)
[2016-11-12] MEDS: ENALAPRIL MALEATE 10 MG TAB PO SCH (09:41)
[2016-11-12] MEDS: METHYLDOPA 250 MG TAB PO SCH (09:41)
[2016-11-12] MEDS: VALPROIC ACID 250 MG CAP PO SCH (09:42)
[2016-11-12] MEDS: HEPARIN SODIUM - SQ 10,000 UNITS/ML VIAL SQ SCH (09:42)
== END 2016-11-12 12:23 | DRG 64 ==
LOC: NEPE 10:32 → NEDA 11:08 → N05B 18:15 → HIME 11-03 23:15 → N05B 11-04 18:33
PROVIDERS: ADMIT Family Medicine; ATTEND Family Medicine
DX: I63.9 Cerebral infarction, unspecified (principal); J18.9 Pneumonia, unspecified organism; F03.91 Unspecified dementia, unspecified severity, with behavioral disturbance; I67.4 Hypertensive encephalopathy; E11.9 Type 2 diabetes mellitus without complications; N39.0 Urinary tract infection, site not specified; E87.1 Hypo-osmolality and hyponatremia; G40.909 Epilepsy, unspecified, not intractable, without status epilepticus; I10 Essential (primary) hypertension; F60.9 Personality disorder, unspecified; E78.5 Hyperlipidemia, unspecified; E87.6 Hypokalemia; R09.02 Hypoxemia; F29 Unspecified psychosis not due to a substance or known physiological condition; Z51.5 Encounter for palliative care; Z66 Do not resuscitate; Z78.1 Physical restraint status; Z79.899 Other long term (current) drug therapy
CPT/HCPCS: 70450; 70551; 71020; 76937; 80048; 80164; 80307; 81001; 82435; 82550; 82565; 82947; 82948; 83735; 84132; 84295; 84484; 84520; 85025; 85384; 85610; 85730; 86850; 86900; 86901; 93005; 93880; 95819; J0360; J1644; J1815; J1953; J3480; J7030; J7042

== ENCOUNTER 2016-12-14 15:03 | Emergency (ER) | payer MEDICARE ==
[~2016-12-14] VITALS: Ht 157.5 cm; Wt 69.0 kg
[~2016-12-14 15:03] MED LIST changes: -ALPR0.5T3 PO; -AMOX875T2 PO; -ASPI81CH CHEW; -CALC250 PO; -CALC600T64; -DONE5TAB7 PO; -ENAL20TA PO; -FISH1000; -GLIM1 PO; -GLIM1TAB PO; +HYDR-3801 PO; -HYOS0.128 PO; +LEVE500 PO; -LEVO75TA3 PO; -MACR100C2 PO; +METF500T PO; +METH250T PO; +NAME10TA PO; -NIFE30TA8 PO; -POLY17S PO; +SENN8.6T8 PO; -VALP250C PO
[2016-12-14 15:12] VITALS: BP 156/69; PULSE 76; RESP 16; TEMP 97.5; O2SAT 96
--- NOTE | 2016-12-14 15:16 | PD ---
HPI Chief Complaint: Altered Mental Status Time Seen by Provider: 15:15 Travel History International Travel<30 days: No Contact w/Intl Traveler<30days: No Traveled to known affect area: No History of Present Illness HPI 81 -year-old female with PMH of HTN, hypothyroid, stroke, DM, dementia, chronic pain presents to the ED via EMS for evaluation of possible altered mental status. The patient resides at [facility]. Her family visited her today and found her responsive, but slumped over in her chair and called EMS. Per EMS the staff at her [facility] is attempting to titrate medications and has had multiple adjustments to dementia meds over the last few days. On presentation the patient is alert, oriented only to self. She is unable to provide any meaningful history. PFSH Past Medical History Autoimmune Disease: No Anxiety: Yes Heart Rhythm Problems: No Cancer: No Cardiovascular Problems: Yes High Cholesterol: No Chest Pain: No Congestive Heart Failure: No Diabetes: Yes Endocrine: No GERD: No Genitourinary: Yes Headaches: No Hiatal Hernia: No Hypertension: Yes Immune Disorder: No Kidney Stones: No Musculoskeletal: No Neurologic: Yes Psychiatric: Yes (Dementia with Behavioral Disturbance) Reproductive: No Respiratory: No Migraines: No Renal Failure: No Seizures: Yes (WITH THIS ADMISSION) Thyroid Disease: Yes (TYROID REMOVED) Ulcer: No Past Surgical History Abdominal Surgery: No AICD: No Arteriovenous Shunt: No Cardiac Surgery: No Ear Surgery: No Endocrine Surgery: Yes (THYROID REMOVAL) Eye Surgery: Yes (EYELID SURGERY) Genitourinary Surgery: No Gynecologic Surgery: Yes (TUBAL LIGATION) Hysterectomy: Yes Joint Replacement: No Oral Surgery: No Thoracic Surgery: No Social History Alcohol Use: No Tobacco Use: No Substance Use: No Allergies-Medications (Allergen,Severity, Reaction): Coded Allergies: metronidazole (Unverified Allergy, Mild, NAUSEA, 11/24/16) amlodipine (Unverified Allergy, Unknown, 11/24/16) benzonatate (Unverified Allergy, Unknown, 11/24/16) clonidine (Unverified Allergy, Unknown, 11/24/16) fluticasone (Unverified Allergy, Unknown, 11/24/16) fluticasone furoate (Unverified Allergy, Unknown, 11/24/16) labetalol (Unverified Allergy, Unknown, 11/24/16) propranolol (Unverified Allergy, Unknown, 11/24/16) salmeterol (Unverified Allergy, Unknown, 11/24/16) Reported Meds & Prescriptions Reported Meds & Active Scripts Active Macrobid (Nitrofurantoin Monoh/Nitrofur Macro) 100 Mg Cap 100 Mg PO BID 7 Days Methyldopa 250 Mg Tab 250 Mg PO TID Hydralazine (Hydralazine HCl) 100 Mg Tab 100 Mg PO TID 30 Days Keppra (Levetiracetam) 500 Mg Tab 500 Mg PO Q12HR 30 Days Depakene (Valproic Acid) 250 Mg Cap 500 Mg PO BID 30 Days Nizoral Topical Shampoo (Ketoconazole) 2% Sham 1 Applic EXTERNAL DAILY Haloperidol 0.5 Mg Tab 0.5 Mg PO DAILY@1600 Escitalopram (Escitalopram Oxalate) 10 Mg Tab 10 Mg PO DAILY Enalapril (Enalapril Maleate) 10 Mg Tab 20 Mg PO 2 BID Aspirin Low Strength (Aspirin) 81 Mg Chew 81 Mg CHEW DAILY Reported Senna S (Sennosides-Docusate Sodium) 8.6-50 Mg Tab 2 Tab PO HS Namenda (Memantine) 10 Mg Tab 10 Mg PO DAILY Metformin (Metformin HCl) 500 Mg Tab 500 Mg PO BIDPC With meals Review of Systems Except as stated in HPI: all other systems reviewed are Neg Physical Exam Narrative GENERAL: Well-nourished, well-developed, pleasantly confused white female in no acute distress.. SKIN: Focused skin assessment warm/dry. HEAD: Normocephalic. EYES: No scleral icterus. No injection or drainage. PERRLA. NECK: Supple, trachea midline. No JVD or lymphadenopathy. CARDIOVASCULAR: Regular rate and rhythm without murmurs, gallops, or rubs. RESPIRATORY: Breath sounds clear and equal bilaterally. No accessory muscle use. GASTROINTESTINAL: Abdomen soft, non-tender, nondistended. Active bowel sounds. MUSCULOSKELETAL: No cyanosis, or edema. BACK: Nontender without obvious deformity. No CVA tenderness. Data Data Last Documented VS Vital Signs Date Time Temp Pulse Resp B/P (MAP) Pulse Ox O2 Delivery O2 Flow Rate FiO2 12/14/16 15:27 93 Room Air 12/14/16 15:12 97.5 76 16 156/69 (98) Orders Orders Electrocardiogram (12/14/16 15:16) Ammonia (12/14/16 15:16) Complete Blood Count With Diff (12/14/16 15:16) Comprehensive Metabolic Panel (12/14/16 15:16) Creatine Kinase (Cpk) (12/14/16 15:16) Prothrombin Time / Inr (Pt) (12/14/16 15:16) Act Partial Throm Time (Ptt) (12/14/16 15:16) Troponin I (12/14/16 15:16) Thyroid Stimulating Hormone (12/14/16 15:16) Urinalysis - C+S If Indicated (12/14/16 15:16) Chest, Single Ap (12/14/16 15:16) Ct Brain W/O Iv Contrast(Rout) (12/14/16 15:16) Blood Glucose (12/14/16 15:16) Ecg Monitoring (12/14/16 15:16) Iv Access Insert/Monitor (12/14/16 15:16) Oximetry (12/14/16 15:16) Sodium Chloride 0.9% Flush (Ns Flush) (12/14/16 15:30) Drug Screen, Random Urine (12/14/16 15:16) Alcohol (Ethanol) (12/14/16 15:16) Tylenol (Acetaminophen) (12/14/16 15:16) Salicylates (Aspirin) (12/14/16 15:16) Urine Culture (12/14/16 16:50) Ceftriaxone Inj (Rocephin Inj) (12/14/16 17:30) Complete Blood Count With Diff (12/14/16 18:00) Labs Laboratory Tests Test 12/14/16 15:25 12/14/16 16:50 12/14/16 17:50 Prothrombin Time 11.3 SEC Prothromb Time International Ratio 1.0 RATIO Activated Partial Thromboplast Time 21.4 SEC Blood Urea Nitrogen 21 MG/DL Creatinine 1.11 MG/DL Random Glucose 173 MG/DL Total Protein 7.6 GM/DL Albumin 3.0 GM/DL Calcium Level 9.1 MG/DL Alkaline Phosphatase 104 U/L Aspartate Amino Transf (AST/SGOT) 29 U/L Alanine Aminotransferase (ALT/SGPT) 30 U/L Total Bilirubin 0.2 MG/DL Sodium Level 139 MEQ/L Potassium Level 3.9 MEQ/L Chloride Level 104 MEQ/L Carbon Dioxide Level 24.5 MEQ/L Anion Gap 11 MEQ/L Estimat Glomerular Filtration Rate 47 ML/MIN Ammonia 21 MCMOL/L Total Creatine Kinase 78 U/L Troponin I LESS THAN 0.02 NG/ML Thyroid Stimulating Hormone 3rd Gen 35.000 uIU/ML Acetaminophen Level LESS THAN 2.0 MCG/ML Ethyl Alcohol Level LESS THAN 3 MG/DL Urine Color YELLOW Urine Turbidity CLOUDY Urine pH 6.0 Urine Specific Sterling 1.019 Urine Protein 100 mg/dL Urine Glucose (UA) NEG mg/dL Urine Ketones TRACE mg/dL Urine Occult Blood SMALL Urine Nitrite POS Urine Bilirubin NEG Urine Urobilinogen 2.0 MG/DL Urine Leukocyte Esterase LARGE Urine RBC 4 /hpf Urine WBC 180 /hpf Urine Squamous Epithelial Cells 1 /hpf Urine Amorphous Sediment RARE Urine Bacteria MANY /hpf Urine Hyaline Casts 9 /lpf Urine Mucus FEW /lpf Microscopic Urinalysis Comment CATH-CULTURE IND Salicylates Level LESS THAN 1.7 MG/DL Urine Opiates Screen NEG Urine Barbiturates Screen NEG Urine Amphetamines Screen NEG Urine Benzodiazepines Screen NEG Urine Cocaine Screen NEG Urine Cannabinoids Screen NEG White Blood Count 10.1 TH/MM3 Red Blood Count 3.07 MIL/MM3 Hemoglobin 10.2 GM/DL Hematocrit 31.1 % Mean Corpuscular Volume 101.3 FL Mean Corpuscular Hemoglobin 33.4 PG Mean Corpuscular Hemoglobin Concent 32.9 % Red Cell Distribution Width 15.4 % Platelet Count 151 TH/MM3 Mean Platelet Volume 9.6 FL Neutrophils (%) (Auto) 82.0 % Lymphocytes (%) (Auto) 10.3 % Monocytes (%) (Auto) 6.9 % Eosinophils (%) (Auto) 0.2 % Basophils (%) (Auto) 0.6 % Neutrophils # (Auto) 10.2 TH/MM3 Lymphocytes # (Auto) 1.3 TH/MM3 Monocytes # (Auto) 0.9 TH/MM3 Eosinophils # (Auto) 0.0 TH/MM3 Basophils # (Auto) 0.1 TH/MM3 CBC Comment AUTO DIFF Differential Comment AUTO DIFF CONFIRMED Platelet Estimate NORMAL Platelet Morphology Comment NORMAL MDM Medical Decision Making Medical Screen Exam Complete: Yes Emergency Medical Condition: Yes Differential Diagnosis polypharmacy versus UTI versus PNA versus hypothyroidism versus hypoglycemia versus metabolic derangement versus stroke versus other Narrative Course 81 -year-old female with PMH of HTN, hypothyroid, stroke, DM, dementia, chronic pain presents to the ED via EMS for evaluation of possible altered mental status. The patient resides at [facility]. Her family visited her today and found her responsive, but slumped over in her chair and called EMS. Per EMS the staff at her [facility] is attempting to titrate medications and has had multiple adjustments to dementia meds over the last few days. On presentation the patient is alert, oriented only to self. She is unable to provide any meaningful history. The patient's family arrive and state that the patient has returned to her baseline status. They state that she is recently had problems with UTIs. CBC: WBC 10.1 CMP: BUN 21, Cr 1.11 TSH 35.00 UA: Cloudy, nitrate positive, small occult blood, large leukocyte esterase, WBC 180, any bacteria. Culture pending. EKG rate 74, sinus rhythm. AK interval 143, QRS 85, QTc 413. LAD. Nonspecific ST abnormality. Reviewed by Dr. Wright. Cardiac enzymes: Negative 1. CXR: Compensated cardiomegaly otherwise unremarkable. Last urine culture grew Escherichia coli with multiple resistances. Patient was administered 1 g Rocephin IV and prescribed Macrobid 100 mg twice a day 7 days. Plan to discharge back to the [facility]. I discussed this with the family who are agreeable. The patient is stable and discharged home. Diagnosis Primary Impression: Urinary tract infection Qualified Codes: N39.0 - Urinary tract infection, site not specified Referrals: Primary Care Physician Patient Instructions: General Instructions, Urinary Traction Infection in Older Adults (ED) Additional Instructions: Rest, hydrate. Take all antibiotics as prescribed, even if symptoms resolved. Follow-up with the primary care provider this week. Return to the ED for any urgent or emergent medical condition. Med/Other Pt SpecificInfo: Prescription(s) given Scripts Nitrofurantoin Monohydrate Macrocrystals (Macrobid) 100 Mg Cap 100 MG PO BID for Infection for 7 Days, CAP 0 Refills Prov: WrightPrecious sow 12/14/16 Disposition: 01 DISCHARGE HOME Condition: Stable Josi Baig Dec 14, 2016 15:16
[2016-12-14 15:27] VITALS: O2SAT 93
[2016-12-14] MEDS ORDERED: SODIUM CHLORIDE 0.9% FLUSH 5 ML FLUSH IV FLUSH PRN (15:30)
--- NOTE | 2016-12-14 15:51 | RADRPT ---
EXAM DATE/TIME: 12/14/2016 15:33 [facility] COMPARISON: No previous studies available for comparison. INDICATIONS : Syncopal Episode, Short of Breath MEDICAL HISTORY : Hypertension. Stroke. Cerebrovascular disease. SURGICAL HISTORY : Tubal ligation. thyroidectomy ENCOUNTER: Initial ACUITY: 1 day PAIN SCORE: 0/10 LOCATION: Bilateral chest FINDINGS: The lungs are clear. The heart is minimally enlarged. The pulmonary vascularity is normal. There is n o evidence for infiltrate or failure. The portion of the bony skeleton visualized is unremarkable. CONCLUSION: Compensated cardiomegaly otherwise negative Board Certified Radiologist. This report was verified electronically.
--- NOTE | 2016-12-14 16:19 | RADRPT ---
EXAM DATE/TIME: 12/14/2016 16:00 [facility] COMPARISON: CT BRAIN W/O CONTRAST, November 02, 2016, 10:46. INDICATIONS : Altered mental status, weakness RADIATION DOSE: 56.35 CTDIvol (mGy) MEDICAL HISTORY : Dementia. Seizures. Cerebrovascular disease. SURGICAL HISTORY : Thyroidectomy. Tubal ligation. ENCOUNTER: Initial ACUITY: 1 day PAIN SCALE: 0/10 LOCATION: cranial TECHNIQUE: Multiple contiguous axial images were obtained of the head. Using automated exposure control and adj ustment of the mA and/or kV according to patient size, radiation dose was kept as low as reasonably a chievable to obtain optimal diagnostic quality images. DICOM format image data is available electro nically for review and comparison. FINDINGS: CEREBRUM: The ventricles are normal for age. No evidence of midline shift, mass lesion, hemorrhage or acute in farction. No extra-axial fluid collections are seen. POSTERIOR FOSSA: The cerebellum and brainstem are intact. The 4th ventricle is midline. The cerebellopontine angle i s unremarkable. EXTRACRANIAL: The visualized portion of the orbits is intact. SKULL: The calvaria is intact. No evidence of skull fracture. CONCLUSION: No acute disease. Abran Walls MD FACR on December 14, 2016 at 16:17 Board Certified Radiologist. This report was verified electronically.
[2016-12-14 16:30] LABS: ALKALINE PHOSPHATASE 104 U/L (45-117); ALT (GPT) 30 U/L (10-53); ANION GAP 11 MEQ/L (5-15); AST (GOT) 29 U/L (15-37); BICARBONATE 24.5 MEQ/L (21.0-32.0); BLOOD UREA NITROGEN 21 MG/DL (7-18); CHLORIDE 104 MEQ/L (98-107); GLOMERULAR FILTRATION RATE 47 ML/MIN (>89); POTASSIUM 3.9 MEQ/L (3.5-5.1); SODIUM (NA) 139 MEQ/L (136-145); TOTAL BILIRUBIN ADULT 0.2 MG/DL (0.2-1.0)
[2016-12-14 16:32] LABS: ACETAMINOPHEN LESS THAN 2.0 MCG/ML (10.0-30.0); ALCOHOL LESS THAN 3 MG/DL (0-5)
[2016-12-14 16:33] LABS: CREATINE KINASE 78 U/L (26-192)
[2016-12-14 17:03] LABS: APTT (PATIENT) 21.4 SEC (24.3-30.1); PROTHROMBIN TIME - PATIENT 11.3 SEC (9.8-11.6)
[2016-12-14 17:08] LABS: AUTOMATED NEUTROPHIL # 10.2 TH/MM3 (1.8-7.7); BASOPHIL # 0.1 TH/MM3 (0-0.2); BASOPHIL % 0.6 % (0.0-2.0); EOSINOPHIL % 0.2 % (0.0-4.0); HEMATOCRIT 31.1 % (35.0-46.0); LYMPH % 10.3 % (9.0-44.0); LYMPHOCYTE # 1.3 TH/MM3 (1.0-4.8); MEAN CELL VOLUME 101.3 FL (80.0-100.0); MEAN CORPUSCULAR HEMOGLOBIN 33.4 PG (27.0-34.0); MEAN CORPUSCULAR HGB CONC 32.9 % (32.0-36.0); MONO % 6.9 % (0.0-8.0); RED BLOOD COUNT 3.07 MIL/MM3 (4.00-5.30); RED CELL DISTRIBUTION WIDTH 15.4 % (11.6-17.2)
[2016-12-14 17:09] LABS: HEMO FLAGS AUTO DIFF
[2016-12-14 17:22] LABS: BACTERIA, URINE MANY /hpf; BLOOD, URINE SMALL (NEG); COMMENT (UR) CATH-CULTURE IND; CULTURE IF INDICATED CATH CULTURE IND; GLUCOSE,URINE NEG (NEG); HYALINE CAST, URINE 9 /lpf (RARE); KETONE, URINE TRACE mg/dL (NEG); MUCUS URINE FEW /lpf (OCC); NITRITE,URINE POS (NEG); SQUAMOUS EPITHELIAL CELL URINE 1 /hpf (0-5); URINE COLOR YELLOW (YELLW/STRAW)
[2016-12-14] MEDS ORDERED: cefTRIAXone INJ 1,000 MG in SODIUM CHLORIDE 0.9% INJ 100 ML IV ONE (17:30)
[2016-12-14] MEDS ORDERED: MACR100C2 PO (17:36)
[2016-12-14 18:23] LABS: PLATELET COUNT 151 TH/MM3 (150-450); WHITE BLOOD COUNT 10.1 TH/MM3 (4.0-11.0)
[2016-12-14 18:24] LABS: PLATELET ESTIMATE SMEAR NORMAL (NORMAL); PLATELET MORPHOLOGY NORMAL (NORMAL); SCAN/DIFF AUTO DIFF CONFIRMED
[2016-12-14 21:22] VITALS: BP 139/64; PULSE 76; RESP 20; O2SAT 97
[2016-12-15 05:00] VITALS: BP 140/70; PULSE 56; RESP 14; O2SAT 95
--- NOTE | 2016-12-15 13:58 | EKG ---
Date Performed: 12/14/2016 Time Performed: 15:33:34 PTAGE: 81 years EKG: Sinus rhythm BASELINE ARTIFACT PRECLUDES ACCURATE ASSESSMENT MARKED LEFT AXIS DEVIATION NONSPECIFIC ST & T-WAVE A BNORMALITY Since previous tracing, no significant change noted Repeat tracing recommended ABNORMAL EC G PREVIOUS TRACING : 11/02/2016 11.16 DOCTOR: Josue Lamb Interpretating Date/Time 12/15/2016 13:57:30
== END 2016-12-15 09:08 | disposition home or self-care (01) ==
LOC: NEPC 15:03 → NEDA 20:00 → UNDOADMOB 20:00 → NEPD 12-15 09:08
DX: N39.0 Urinary tract infection, site not specified (principal); B96.20 Unspecified Escherichia coli [E. coli] as the cause of diseases classified elsewhere; B95.4 Other streptococcus as the cause of diseases classified elsewhere; I10 Essential (primary) hypertension; E11.9 Type 2 diabetes mellitus without complications; E03.9 Hypothyroidism, unspecified; R94.31 Abnormal electrocardiogram [ECG] [EKG]; Z79.84 Long term (current) use of oral hypoglycemic drugs; Z79.899 Other long term (current) drug therapy
CPT/HCPCS: 70450; 71010; 80053; 80307; 81001; 82140; 82550; 84443; 84484; 85025; 85610; 85730; 87077; 87086; 87186; 93005; 96365; 96366; 99285; J0696

== ENCOUNTER 2016-12-22 17:44 | Observation (INO) | payer MEDICARE ==
[~2016-12-22] VITALS: Ht 152.4 cm; Wt 50.0 kg
[~2016-12-22 17:44] MED LIST changes: +MACR100C2 PO
[2016-12-22] MEDS ORDERED: IOHEXOL 350 MG/ML 10 ML VIAL (for RAD DIAG) IVCONTRAST ONE (17:45)
[2016-12-22 17:46] VITALS: BP 107/56; PULSE 110; RESP 12; TEMP 97.3
--- NOTE | 2016-12-22 17:48 | PD ---
HPI Chief Complaint: altered mental status Time Seen by Provider: 17:47 Travel History International Travel<30 days: No Contact w/Intl Traveler<30days: No Traveled to known affect area: No History of Present Illness HPI 81-year-old female was brought to the emergency room by EMS from the long term for altered mental status and possible syncopal episode. Patient is a DNR with history of dementia. It is difficult to communicate with her as she keeps her eyes tight shut and nonverbal. History is mostly obtained from the paramedics. They noticed that her blood pressure was in the 70s en route. They were unable to get an IV access. Patient is unable to give any meaningful history. PFSH Past Medical History Narrative Medical List of her past medical, surgical, social and family history is reviewed from the nursing note. Autoimmune Disease: No Anxiety: Yes Heart Rhythm Problems: No Cancer: No Cardiovascular Problems: Yes High Cholesterol: No Chest Pain: No Congestive Heart Failure: No Diabetes: Yes Endocrine: No GERD: No Genitourinary: Yes Headaches: No Hiatal Hernia: No Hypertension: Yes Immune Disorder: No Kidney Stones: No Musculoskeletal: No Neurologic: Yes Psychiatric: Yes (Dementia with Behavioral Disturbance) Reproductive: No Respiratory: No Migraines: No Renal Failure: No Seizures: Yes (WITH THIS ADMISSION) Thyroid Disease: Yes (TYROID REMOVED) Ulcer: No Past Surgical History Abdominal Surgery: No AICD: No Arteriovenous Shunt: No Cardiac Surgery: No Ear Surgery: No Endocrine Surgery: Yes (THYROID REMOVAL) Eye Surgery: Yes (EYELID SURGERY) Genitourinary Surgery: No Gynecologic Surgery: Yes (TUBAL LIGATION) Hysterectomy: Yes Joint Replacement: No Oral Surgery: No Thoracic Surgery: No Social History Alcohol Use: No Tobacco Use: No Substance Use: No Allergies-Medications (Allergen,Severity, Reaction): Coded Allergies: metronidazole (Unverified Allergy, Mild, NAUSEA, 11/24/16) amlodipine (Unverified Allergy, Unknown, 11/24/16) benzonatate (Unverified Allergy, Unknown, 11/24/16) clonidine (Unverified Allergy, Unknown, 11/24/16) fluticasone (Unverified Allergy, Unknown, 11/24/16) fluticasone furoate (Unverified Allergy, Unknown, 11/24/16) labetalol (Unverified Allergy, Unknown, 11/24/16) propranolol (Unverified Allergy, Unknown, 11/24/16) salmeterol (Unverified Allergy, Unknown, 11/24/16) Comments List of her allergies reviewed from the nursing note. Reported Meds & Prescriptions Reported Meds & Active Scripts Active Keppra (Levetiracetam) 500 Mg Tab 500 Mg PO Q12HR 30 Days Escitalopram (Escitalopram Oxalate) 10 Mg Tab 10 Mg PO DAILY Aspirin Low Strength (Aspirin) 81 Mg Chew 81 Mg CHEW DAILY Reported Hydralazine HCl 25 Mg Tablet 25 Mg PO QID Depakote DR (Divalproex Sodium) 250 Mg Tabdr 250 Mg PO TID Vasotec (Enalapril Maleate) 20 Mg Tab 20 Mg PO BID Senna S (Sennosides-Docusate Sodium) 8.6-50 Mg Tab 2 Tab PO HS Namenda (Memantine) 10 Mg Tab 10 Mg PO DAILY Metformin (Metformin HCl) 500 Mg Tab 500 Mg PO BIDPC With meals Narrative Medication List of her home medications reviewed from the nursing note. Review of Systems Except as stated in HPI: all other systems reviewed are Neg Physical Exam Narrative GENERAL: Eyes tight shut, elderly, noncommunicative, moderate distress SKIN: Focused skin assessment warm/dry. Pale HEAD: Atraumatic. Normocephalic. EYES: Pupils equal and round. No scleral icterus. No injection or drainage. ENT: No nasal bleeding or discharge. Mucous membranes pink and moist. NECK: Trachea midline. No JVD. CARDIOVASCULAR: Regular rate and rhythm. No murmur appreciated. RESPIRATORY: No accessory muscle use. Clear to auscultation. Breath sounds equal bilaterally. GASTROINTESTINAL: Abdomen soft, non-tender, nondistended. Hepatic and splenic margins not palpable. MUSCULOSKELETAL: No obvious deformities. No clubbing. No cyanosis. No edema. Clenched fists with tremors NEUROLOGICAL: GCS of 10. No obvious cranial nerve deficits. Motor grossly within normal limits. Noncommunicative Data Data Last Documented VS Orders Orders Electrocardiogram (12/22/16 18:09) Complete Blood Count With Diff (12/22/16 18:09) Comprehensive Metabolic Panel (12/22/16 18:09) Creatine Kinase (Cpk) (12/22/16 18:09) Prothrombin Time / Inr (Pt) (12/22/16 18:09) Troponin I (9/12/17 18:09) Thyroid Stimulating Hormone (12/22/16 18:09) Urinalysis - C+S If Indicated (12/22/16 18:09) Lactic Acid Sepsis Protocol (12/22/16 18:09) Blood Culture (12/22/16 18:09) Chest, Single Ap (12/22/16 18:09) Ct Brain W/O Iv Contrast(Rout) (12/22/16 18:09) Blood Glucose (12/22/16 18:09) Ecg Monitoring (12/22/16 18:09) Iv Access Insert/Monitor (12/22/16 18:09) Oximetry (12/22/16 18:09) Sodium Chloride 0.9% Flush (Ns Flush) (12/22/16 18:15) Sodium Chlor 0.9% 1000 Ml Inj (Ns 1000 M (12/22/16 18:09) Urinary Catheter Insert/Apply (12/22/16 18:09) Sodium Chlor 0.9% 1000 Ml Inj (Ns 1000 M (12/22/16 21:00) Ct Abd/Pel W Iv Contrast(Rout) (12/22/16 ) Piperacil-Tazo 3.375 Gm Premix (Zosyn 3. (12/22/16 21:15) Vancomycin Inj (Vancomycin Inj) (12/22/16 21:15) Iohexol 350 Inj (Omnipaque 350 Inj) (12/22/16 17:45) Admit Order (Ed Use Only) (12/22/16 ) Diet 1800 Ada Cons Carb (12/23/16 Breakfast) Vital Signs (Adult) ELIZABETH.Q4H (12/22/16 23:00) Activity Oob With Assistance (12/22/16 23:00) Place In Observation (12/22/16 ) Levofloxacin 500 Mg Premix Inj (Levaquin (12/22/16 23:00) Complete Blood Count With Diff (12/23/16 06:00) Basic Metabolic Panel (Bmp) (12/23/16 06:00) Bedside Glucose ELIZABETH.AC&HS (12/22/16 23:00) Hemoglobin (Hgb) A1c (12/22/16 23:00) Clindamycin Inj (Cleocin Inj) (12/23/16 00:00) Labs Laboratory Tests Test 12/22/16 18:50 12/22/16 19:45 12/22/16 22:30 Urine Color YELLOW Urine Turbidity CLEAR Urine pH 6.0 Urine Specific Story 1.019 Urine Protein TRACE mg/dL Urine Glucose (UA) NEG mg/dL Urine Ketones NEG mg/dL Urine Occult Blood NEG Urine Nitrite NEG Urine Bilirubin NEG Urine Urobilinogen LESS THAN 2.0 MG/DL Urine Leukocyte Esterase NEG Urine RBC 1 /hpf Urine WBC LESS THAN 1 /hpf Microscopic Urinalysis Comment CATH-CULT NOT IND White Blood Count 14.2 TH/MM3 Red Blood Count 3.04 MIL/MM3 Hemoglobin 9.9 GM/DL Hematocrit 30.9 % Mean Corpuscular Volume 101.7 FL Mean Corpuscular Hemoglobin 32.5 PG Mean Corpuscular Hemoglobin Concent 32.0 % Red Cell Distribution Width 15.6 % Platelet Count 39 TH/MM3 Mean Platelet Volume 11.3 FL Neutrophils (%) (Auto) 91.0 % Lymphocytes (%) (Auto) 3.0 % Monocytes (%) (Auto) 5.6 % Eosinophils (%) (Auto) 0.1 % Basophils (%) (Auto) 0.3 % Neutrophils # (Auto) 12.9 TH/MM3 Lymphocytes # (Auto) 0.4 TH/MM3 Monocytes # (Auto) 0.8 TH/MM3 Eosinophils # (Auto) 0.0 TH/MM3 Basophils # (Auto) 0.0 TH/MM3 CBC Comment AUTO DIFF Differential Comment AUTO DIFF CONFIRMED Platelet Estimate NORMAL Platelet Morphology Comment CLUMPED Prothrombin Time 11.7 SEC Prothromb Time International Ratio 1.1 RATIO Blood Urea Nitrogen 18 MG/DL Creatinine 1.26 MG/DL Random Glucose 155 MG/DL Total Protein 6.6 GM/DL Albumin 2.8 GM/DL Calcium Level 8.8 MG/DL Alkaline Phosphatase 98 U/L Aspartate Amino Transf (AST/SGOT) 26 U/L Alanine Aminotransferase (ALT/SGPT) 28 U/L Total Bilirubin 0.3 MG/DL Sodium Level 143 MEQ/L Potassium Level 3.9 MEQ/L Chloride Level 108 MEQ/L Carbon Dioxide Level 21.9 MEQ/L Anion Gap 13 MEQ/L Estimat Glomerular Filtration Rate 41 ML/MIN Lactic Acid Level 5.7 mmol/L 2.4 mmol/L Total Creatine Kinase 179 U/L Troponin I 0.02 NG/ML Thyroid Stimulating Hormone 3rd Gen 16.800 uIU/ML MDM Medical Decision Making Medical Screen Exam Complete: Yes Emergency Medical Condition: Yes Medical Record Reviewed: Yes Differential Diagnosis UTI, electrolyte abnormality, dehydration, intracranial bleed Narrative Course 7:19 PM rectal temperature was 96.1. Patient is getting IV fluid. Awaiting for the blood test and the CAT scan. A was signed over to the oncoming ER physician. Procedures Procedure Narrative EJ access: Patient was put in Trendelenburg. Left EJ site was prepped with ChloraPrep and with a 20-gauge Angiocath access was obtained. Line was flushed and secured. Patient tolerated the procedure well. EKG Prior to Arrival: No Scripts Metronidazole (Flagyl) 500 Mg Tab 500 MG PO Q8HR for antibiotic, #18 TAB 0 Refills Prov: Sarah Crockett 12/25/16 Levofloxacin (Levaquin) 250 Mg Tablet 250 MG PO Q24H for antibiotic, #6 TAB 0 Refills Prov: Sarah Crockett 12/25/16 Milady Norris MD Dec 22, 2016 17:48
[2016-12-22 18:06] VITALS: TEMP 96.1
[2016-12-22] MEDS ORDERED: SODIUM CHLOR 0.9% 1000 ML INJ 1,000 ML IV SCH (18:09)
[2016-12-22] MEDS ORDERED: SODIUM CHLORIDE 0.9% FLUSH 5 ML FLUSH IV FLUSH PRN (18:15)
[2016-12-22 18:23] VITALS: O2SAT 94
--- NOTE | 2016-12-22 18:31 | RADRPT ---
EXAM DATE/TIME: 12/22/2016 18:29 [facility] COMPARISON: CHEST SINGLE AP, December 14, 2016, 15:33. INDICATIONS : Cough, short of breath. MEDICAL HISTORY : Hypertension. Stroke. Cerebrovascular disease. SURGICAL HISTORY : Tubal ligation. thyroidectomy ENCOUNTER: Initial ACUITY: 1 day PAIN SCORE: 0/10 LOCATION: Bilateral chest FINDINGS: A single view of the chest demonstrates the lungs to be symmetrically aerated without evidence of mas s, infiltrate or effusion. The cardiomediastinal contours are unremarkable. Osseous structures are intact. CONCLUSION: No evidence of acute cardiopulmonary disease. Juancho Villalobos MD on December 22, 2016 at 18:29 Board Certified Radiologist. This report was verified electronically.
[2016-12-22 19:26] LABS: BLOOD, URINE NEG (NEG); GLUCOSE,URINE NEG (NEG); KETONE, URINE NEG (NEG); NITRITE,URINE NEG (NEG); URINE COLOR YELLOW (YELLW/STRAW)
[2016-12-22 19:27] LABS: COMMENT (UR) CATH-CULT NOT IND; CULTURE IF INDICATED CATH CULTURE NOT IND
[2016-12-22] MEDS ORDERED: ENAL20TA81 PO (19:39)
[2016-12-22] MEDS ORDERED: ABH GEL T-DERMAL (19:39)
[2016-12-22] MEDS ORDERED: HYDR-3799 PO (19:39)
[2016-12-22] MEDS ORDERED: DEPA250T2 PO (19:39)
[2016-12-22 19:40] VITALS: BP 142/90; PULSE 86; RESP 21; TEMP 98.2; O2SAT 100
--- NOTE | 2016-12-22 19:50 | RADRPT ---
EXAM DATE/TIME: 12/22/2016 19:12 [facility] COMPARISON: No previous studies available for comparison. INDICATIONS : Altered mental status with confusion. RADIATION DOSE: 56.35 CTDIvol (mGy) MEDICAL HISTORY : Seizures. Diabetes mellitus type 2. Hypertension.Dementia. SURGICAL HISTORY : Thyroidectomy. ENCOUNTER: Initial ACUITY: 1 day PAIN SCALE: Non-responsive LOCATION: cranial TECHNIQUE: Multiple contiguous axial images were obtained of the head. Using automated exposure control and adj ustment of the mA and/or kV according to patient size, radiation dose was kept as low as reasonably a chievable to obtain optimal diagnostic quality images. DICOM format image data is available electro nically for review and comparison. FINDINGS: CEREBRUM: The ventricles are normal for age. No evidence of midline shift, mass lesion, hemorrhage or acute in farction. No extra-axial fluid collections are seen. Chronic low attenuation seen in the periventric ular white matter. POSTERIOR FOSSA: The cerebellum and brainstem are intact. The 4th ventricle is midline. The cerebellopontine angle i s unremarkable. EXTRACRANIAL: The visualized portion of the orbits is intact. SKULL: The calvaria is intact. No evidence of skull fracture. CONCLUSION: No acute intracranial abnormality. Chronic white matter changes. Juancho Villalobos MD on December 22, 2016 at 19:48 Board Certified Radiologist. This report was verified electronically.
[2016-12-22 20:23] LABS: INTERNATIONAL NORMALIZED RATIO 1.1 RATIO; PROTHROMBIN TIME - PATIENT 11.7 SEC (9.8-11.6)
[2016-12-22 20:36] LABS: ANION GAP 13 MEQ/L (5-15); AST (GOT) 26 U/L (15-37); BICARBONATE 21.9 MEQ/L (21.0-32.0); BLOOD UREA NITROGEN 18 MG/DL (7-18); CHLORIDE 108 MEQ/L (98-107); GLOMERULAR FILTRATION RATE 41 ML/MIN (>89); POTASSIUM 3.9 MEQ/L (3.5-5.1); SODIUM (NA) 143 MEQ/L (136-145)
[2016-12-22 20:37] LABS: ALT (GPT) 28 U/L (10-53)
[2016-12-22 20:40] LABS: AUTOMATED NEUTROPHIL # 12.9 TH/MM3 (1.8-7.7); BASOPHIL % 0.3 % (0.0-2.0); EOSINOPHIL % 0.1 % (0.0-4.0); HEMATOCRIT 30.9 % (35.0-46.0); LYMPHOCYTE # 0.4 TH/MM3 (1.0-4.8); MEAN CELL VOLUME 101.7 FL (80.0-100.0); MEAN CORPUSCULAR HEMOGLOBIN 32.5 PG (27.0-34.0); MONO % 5.6 % (0.0-8.0); PLATELET COUNT 39 TH/MM3 (150-450); RED BLOOD COUNT 3.04 MIL/MM3 (4.00-5.30); RED CELL DISTRIBUTION WIDTH 15.6 % (11.6-17.2); WHITE BLOOD COUNT 14.2 TH/MM3 (4.0-11.0)
[2016-12-22 20:46] LABS: ALKALINE PHOSPHATASE 98 U/L (45-117); CREATINE KINASE 179 U/L (26-192); TOTAL BILIRUBIN ADULT 0.3 MG/DL (0.2-1.0)
[2016-12-22 20:49] LABS: HEMO FLAGS AUTO DIFF
[2016-12-22] MEDS ORDERED: SODIUM CHLOR 0.9% 1000 ML INJ 1,000 ML IV ONE (21:00)
[2016-12-22] MEDS ORDERED: PIPERACIL-TAZO 3.375 GM PREMIX 50 ML IV ONE (21:15)
[2016-12-22] MEDS ORDERED: VANCOMYCIN INJ 1,000 MG in SODIUM CHLOR 0.9% 250 ML INJ 250 ML IV ONE (21:15)
[2016-12-22 21:40] LABS: PLATELET ESTIMATE SMEAR NORMAL (NORMAL); PLATELET MORPHOLOGY CLUMPED (NORMAL); SCAN/DIFF AUTO DIFF CONFIRMED
[2016-12-22 22:09] LABS: LACTIC ACID GHOST NOT REPORTABLE
--- NOTE | 2016-12-22 22:10 | RADRPT ---
EXAM DATE/TIME: 12/22/2016 21:34 [place] COMPARISON: No previous studies available for comparison. INDICATIONS : Patient complains of abdominal pain, sepsis. IV CONTRAST: 75 cc Omnipaque 350 (iohexol) IV ORAL CONTRAST: No oral contrast ingested. RADIATION DOSE: 9.96 CTDIvol (mGy) MEDICAL HISTORY : Seizures. Hypertension. Diabetes mellitus type 1. SURGICAL HISTORY : Thyroidectomy. ENCOUNTER: Initial ACUITY: 1 day PAIN SCALE: 4/10 LOCATION: abdomen TECHNIQUE: Volumetric scanning of the abdomen and pelvis was performed. Using automated exposure control and ad justment of the mA and/or kV according to patient size, radiation dose was kept as low as reasonably achievable to obtain optimal diagnostic quality images. DICOM format image data is available electro nically for review and comparison. FINDINGS: LOWER LUNGS: Trace atelectasis of the visualized lung bases. LIVER: Homogeneous density without lesion. There is no dilation of the biliary tree. No calcified gallston es. SPLEEN: Normal size without lesion. PANCREAS: Within normal limits. KIDNEYS: 3 x 4 mm nonobstructing stone left lower pole. No ureteral stone or hydronephrosis/hydroureter on eit her side. ADRENAL GLANDS: Within normal limits. VASCULAR: Tortuous and atherosclerotic abdominal aorta and branch vessels. No aneurysm. BOWEL/MESENTERY: Severe diverticulosis seen of the sigmoid and descending portions of the colon. A few scattered areas of mild pericolonic edema seen suggesting mild diverticulitis in the proper clinical setting, for ex ample near the descending/sigmoid junction on series 3 image 58. A stomach and small bowel within nor mal limits. The appendix is well-visualized, normal. ABDOMINAL WALL: Within normal limits. RETROPERITONEUM: There is no lymphadenopathy. BLADDER: Decompressed with a Summers. I believe there is probably small thickening, nonspecific but as can be se en in the setting of cystitis. No mass demonstrated. REPRODUCTIVE: Within normal limits. INGUINAL: There is no lymphadenopathy or hernia. MUSCULOSKELETAL: No acute bony abnormality demonstrated. There is severe disc space narrowing with presumably chronic/ reactive endplate changes in the lumbar spine at L3/L4, L4/L5 and L5/S1. CONCLUSION: 1. Severe diverticulosis with mild uncomplicated diverticulitis of the descending and sigmoid colon. 2. Nonobstructing stone of the left kidney. 3. Trace atelectasis of both lung bases. 4. Atherosclerotic abdominal aorta. No aneurysm. 5. Summers catheter. Mild bladder wall thickening. Juancho Villalobos MD on December 22, 2016 at 22:04 Board Certified Radiologist. This report was verified electronically.
--- NOTE | 2016-12-22 22:31 | PD ---
Physical Exam Narrative Patient signed out to me by Dr. Norris. Please see her documentation for complete details. Briefly, patient is an 81-year-old female with history of dementia who comes in from her [facility] due to altered mental status. Per daughter, she just has not been as responsive. This started this afternoon, somewhat abruptly per staff. Daughter states she did have an episode of vomiting this afternoon. There was no seizure activity witnessed. She did not seem to be complaining of anything. Patient is unable to provide any history. Exam shows patient is sleeping comfortably. Abdomen is soft and nontender to palpation. Data Data Last Documented VS Vital Signs Date Time Temp Pulse Resp B/P (MAP) Pulse Ox O2 Delivery O2 Flow Rate FiO2 12/22/16 19:40 98.2 86 21 142/90 (107) 100 Nasal Cannula 4.00 Orders Orders Electrocardiogram (12/22/16 18:09) Complete Blood Count With Diff (12/22/16 18:09) Comprehensive Metabolic Panel (12/22/16 18:09) Creatine Kinase (Cpk) (12/22/16 18:09) Prothrombin Time / Inr (Pt) (12/22/16 18:09) Troponin I (12/22/16 18:09) Thyroid Stimulating Hormone (12/22/16 18:09) Urinalysis - C+S If Indicated (12/22/16 18:09) Lactic Acid Sepsis Protocol (12/22/16 18:09) Blood Culture (12/22/16 18:09) Chest, Single Ap (12/22/16 18:09) Ct Brain W/O Iv Contrast(Rout) (12/22/16 18:09) Blood Glucose (12/22/16 18:09) Ecg Monitoring (12/22/16 18:09) Iv Access Insert/Monitor (12/22/16 18:09) Oximetry (12/22/16 18:09) Sodium Chloride 0.9% Flush (Ns Flush) (12/22/16 18:15) Sodium Chlor 0.9% 1000 Ml Inj (Ns 1000 M (12/22/16 18:09) Urinary Catheter Insert/Apply (12/22/16 18:09) Sodium Chlor 0.9% 1000 Ml Inj (Ns 1000 M (12/22/16 21:00) Ct Abd/Pel W Iv Contrast(Rout) (12/22/16 ) Piperacil-Tazo 3.375 Gm Premix (Zosyn 3. (12/22/16 21:15) Vancomycin Inj (Vancomycin Inj) (12/22/16 21:15) Iohexol 350 Inj (Omnipaque 350 Inj) (12/22/16 17:45) Labs Laboratory Tests Test 12/22/16 18:50 12/22/16 19:45 Urine Color YELLOW Urine Turbidity CLEAR Urine pH 6.0 Urine Specific [place] 1.019 Urine Protein TRACE mg/dL Urine Glucose (UA) NEG mg/dL Urine Ketones NEG mg/dL Urine Occult Blood NEG Urine Nitrite NEG Urine Bilirubin NEG Urine Urobilinogen LESS THAN 2.0 MG/DL Urine Leukocyte Esterase NEG Urine RBC 1 /hpf Urine WBC LESS THAN 1 /hpf Microscopic Urinalysis Comment CATH-CULT NOT IND White Blood Count 14.2 TH/MM3 Red Blood Count 3.04 MIL/MM3 Hemoglobin 9.9 GM/DL Hematocrit 30.9 % Mean Corpuscular Volume 101.7 FL Mean Corpuscular Hemoglobin 32.5 PG Mean Corpuscular Hemoglobin Concent 32.0 % Red Cell Distribution Width 15.6 % Platelet Count 39 TH/MM3 Mean Platelet Volume 11.3 FL Neutrophils (%) (Auto) 91.0 % Lymphocytes (%) (Auto) 3.0 % Monocytes (%) (Auto) 5.6 % Eosinophils (%) (Auto) 0.1 % Basophils (%) (Auto) 0.3 % Neutrophils # (Auto) 12.9 TH/MM3 Lymphocytes # (Auto) 0.4 TH/MM3 Monocytes # (Auto) 0.8 TH/MM3 Eosinophils # (Auto) 0.0 TH/MM3 Basophils # (Auto) 0.0 TH/MM3 CBC Comment AUTO DIFF Differential Comment AUTO DIFF CONFIRMED Platelet Estimate NORMAL Platelet Morphology Comment CLUMPED Prothrombin Time 11.7 SEC Prothromb Time International Ratio 1.1 RATIO Blood Urea Nitrogen 18 MG/DL Creatinine 1.26 MG/DL Random Glucose 155 MG/DL Total Protein 6.6 GM/DL Albumin 2.8 GM/DL Calcium Level 8.8 MG/DL Alkaline Phosphatase 98 U/L Aspartate Amino Transf (AST/SGOT) 26 U/L Alanine Aminotransferase (ALT/SGPT) 28 U/L Total Bilirubin 0.3 MG/DL Sodium Level 143 MEQ/L Potassium Level 3.9 MEQ/L Chloride Level 108 MEQ/L Carbon Dioxide Level 21.9 MEQ/L Anion Gap 13 MEQ/L Estimat Glomerular Filtration Rate 41 ML/MIN Lactic Acid Level 5.7 mmol/L Total Creatine Kinase 179 U/L Troponin I 0.02 NG/ML Thyroid Stimulating Hormone 3rd Gen 16.800 uIU/ML MDM Supervised Visit with LENNY: No Narrative Course Labs show a lactic acid of 5.5, white blood cell count is 14.7. Patient had a large bowel movement all here in the emergency department. Decision made to scan her belly. CT abdomen and pelvis shows mild diverticulitis and mild thickening of her bladder wall. Patient given a second liter of fluids. Given a dose of broad-spectrum antibiotics. She'll be admitted for further management. Diagnosis Primary Impression: Sepsis Qualified Codes: A41.9 - Sepsis, unspecified organism Admitting Information Admitting Physician Requests: Admit Condition: Stable Angela Junior MD Dec 22, 2016 22:31
[2016-12-22] MEDS ORDERED: LEVOFLOXACIN 500 MG PREMIX INJ 100 ML IV SCH (23:00)
[2016-12-22 23:08] VITALS: BP 169/75; PULSE 76; RESP 18
[2016-12-23] VITALS (8 sets, daily range): BP systolic 135–182; BP diastolic 61–79; PULSE 70–77; RESP 16–18; TEMP 98.1–99.7; O2SAT 92–98
[2016-12-23] MEDS: CLINDAMYCIN INJ 300 MG in SODIUM CHLORIDE 0.9% INJ 100 ML IV SCH ×3 (00:36→16:24)
[2016-12-23] MEDS ORDERED: GLUCAGON 1 MG/ML VIAL OTHER PRN (08:00)
[2016-12-23] MEDS ORDERED: DEXTROSE 50% IN WATER 50 ML VIAL(D50) IV PRN (08:00)
[2016-12-23] MEDS: INSULIN ASPART SUPPLEMENTAL SCALE SQ SCH ×4 (08:25→20:26)
[2016-12-23] MEDS: levETIRAcetam 500 MG TAB PO SCH ×2 (08:26→20:23)
[2016-12-23] MEDS: DIVALPROEX SODIUM DELAYED RELEASE 250 MG TAB PO SCH ×3 (08:26→18:00)
[2016-12-23] MEDS: MEMANTINE HCL 10 MG TAB PO SCH (08:26)
[2016-12-23] MEDS: ASPIRIN 81 MG CHEW TAB CHEW SCH (08:26)
[2016-12-23] MEDS: ESCITALOPRAM OXALATE 10 MG TAB PO SCH (09:00)
[2016-12-23] MEDS: hydrALAZINE HCL 25 MG TAB PO SCH ×4 (09:00→20:23)
[2016-12-23 09:23] LABS: ANION GAP 9 MEQ/L (5-15); BICARBONATE 23.5 MEQ/L (21.0-32.0); BLOOD UREA NITROGEN 19 MG/DL (7-18); CHLORIDE 110 MEQ/L (98-107); GLOMERULAR FILTRATION RATE 45 ML/MIN (>89); POTASSIUM 4.1 MEQ/L (3.5-5.1); SODIUM (NA) 142 MEQ/L (136-145)
--- NOTE | 2016-12-23 09:43 | HHI.HP ---
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 Patient is a resident at [facility] and was thought to be less responsive than her normal self and brought to the emergency department for further evaluation and treatment. Daughter also reported an episode of vomiting 12/22/16. There was no seizure activity witnessed. Patient is unable to provide meaningful information therefore information gathered from prior computerized charting as well as physical exam. Discussed with daughter Wendi Harry over the phone patient's baseline for the past few months includes talking 1-2 words at a time with refusal to speak or interact at times. Patient has also been treated for aggressive behavior and bennett acted in the past. Patient currently offering no complaints at this time. Review of Systems ROS Limitations: Poor Historian Constitutional: DENIES: Fatigue, Fever, Chills Endocrine: DENIES: Heat/cold intolerance, Polydipsia, Polyuria Cardiovascular: DENIES: Chest pain, Syncope, Lower Extremity Edema Gastrointestinal: COMPLAINS OF: Vomiting, DENIES: Abdominal pain, Black stools , Bloody stools Neurologic: DENIES: Headache, Localized weakness, Seizures Psychiatric: COMPLAINS OF: Confusion, DENIES: Anxiety Past Family Social History Past Medical History dementia, hypertension, diabetes mellitus, seizures and recent CVA November 2016 Past Surgical History Hysterectomy and thyroidectomy Reported Medications Keppra (Levetiracetam) 500 Mg Tab 500 Mg PO Q12HR 30 Days Nizoral Topical Shampoo (Ketoconazole) 2% Sham 1 Applic EXTERNAL DAILY Haloperidol 0.5 Mg Tab 0.5 Mg PO DAILY@1600 Escitalopram (Escitalopram Oxalate) 10 Mg Tab 10 Mg PO DAILY Aspirin Low Strength (Aspirin) 81 Mg Chew 81 Mg CHEW DAILY [Abh Gel] 1 Applic T-DERMAL Q4HR PRN Hydralazine HCl 25 Mg Tablet 25 Mg PO QID Depakote DR (Divalproex Sodium) 250 Mg Tabdr 250 Mg PO TID Vasotec (Enalapril Maleate) 20 Mg Tab 20 Mg PO BID Senna S (Sennosides-Docusate Sodium) 8.6-50 Mg Tab 2 Tab PO HS Namenda (Memantine) 10 Mg Tab 10 Mg PO DAILY Metformin (Metformin HCl) 500 Mg Tab 500 Mg PO BIDPC With meals Allergies: Coded Allergies: metronidazole (Unverified Allergy, Mild, NAUSEA, 11/24/16) amlodipine (Unverified Allergy, Unknown, 11/24/16) benzonatate (Unverified Allergy, Unknown, 11/24/16) clonidine (Unverified Allergy, Unknown, 11/24/16) fluticasone (Unverified Allergy, Unknown, 11/24/16) fluticasone furoate (Unverified Allergy, Unknown, 11/24/16) labetalol (Unverified Allergy, Unknown, 11/24/16) propranolol (Unverified Allergy, Unknown, 11/24/16) salmeterol (Unverified Allergy, Unknown, 11/24/16) Active Ordered Medications Current Medications Medications (Trade) Dose Ordered Sig/Dayna Route Start Time Stop Time Status Last Admin (NS Flush) 2 ml UNSCH PRN IV FLUSH 12/22/16 18:15 Levofloxacin/ Dextrose 100 ml @ 100 mls/hr Q24H IV 12/22/16 23:00 12/22/16 23:30 Clindamycin Phosphate 300 mg/ Sodium Chloride 102 ml @ 104 mls/hr Q8H IV 12/23/16 00:00 12/23/16 09:03 (Aspirin Chew) 81 mg DAILY CHEW 12/23/16 09:00 12/23/16 08:26 (Depakote Dr) 250 mg TID PO 12/23/16 09:00 12/23/16 08:26 (Lexapro) 10 mg DAILY PO 12/23/16 09:00 (Apresoline) 25 mg QID PO 12/23/16 09:00 (Keppra) 500 mg Q12HR PO 12/23/16 09:00 12/23/16 08:26 (Namenda) 10 mg DAILY PO 12/23/16 09:00 12/23/16 08:26 (Brandie-Colace) 2 tab HS PO 12/23/16 21:00 (D50w (Vial) Inj) 50 ml UNSCH PRN IV 12/23/16 08:00 (Glucagon Inj) 1 mg UNSCH PRN OTHER 12/23/16 08:00 (NovoLOG SUPPLEMENTAL SCALE) 1 ACHS SLIDING SCALE SQ 12/23/16 08:00 12/23/16 08:25 Family History non contributory Social History Lives at [facility] no reports of tobacco use, ETOH use or illicit drug use Physical Exam Vital Signs Vital Signs Date Time Temp Pulse Resp B/P (MAP) Pulse Ox O2 Delivery O2 Flow Rate FiO2 12/23/16 07:43 92 Nasal Cannula 1.00 12/23/16 07:00 99.4 77 16 182/77 (112) 98 12/23/16 03:21 98.1 73 18 182/79 (113) 98 12/23/16 01:20 12/22/16 23:08 76 18 169/75 (106) Nasal Cannula 4.00 12/22/16 19:40 98.2 86 21 142/90 (107) 100 Nasal Cannula 4.00 12/22/16 18:23 94 Nasal Cannula 2.00 12/22/16 18:06 96.1 12/22/16 17:53 110 12 Room Air 12/22/16 17:46 97.3 110 12 107/56 (73) Physical Exam GENERAL: This is a elderly 81 year old female patient, SKIN: No rashes, ecchymoses or lesions. Cool and dry. HEAD: Atraumatic. Normocephalic. No temporal or scalp tenderness. EYES: Extraocular motions intact. No scleral icterus. No injection or drainage. CARDIOVASCULAR: Regular rate and rhythm without murmurs, gallops, or rubs. RESPIRATORY: Clear to auscultation. Breath sounds equal bilaterally. No wheezes , rales, or rhonchi. GASTROINTESTINAL: Abdomen soft, non-tender, nondistended. No hepato-splenomegaly , or palpable masses. No guarding. MUSCULOSKELETAL: Extremities without clubbing, cyanosis, or edema. No joint tenderness, effusion, or edema noted. No calf tenderness. Negative Homans sign bilaterally. NEUROLOGICAL: Motor and sensory grossly within normal limits. 3 out of 5 muscle strength in all muscle groups. Laboratory Laboratory Tests Test 12/22/16 18:50 12/22/16 19:45 12/22/16 22:30 12/23/16 08:45 Urine Color YELLOW Urine Turbidity CLEAR Urine pH 6.0 Urine Specific [place] 1.019 Urine Protein TRACE Urine Glucose (UA) NEG Urine Ketones NEG Urine Occult Blood NEG Urine Nitrite NEG Urine Bilirubin NEG Urine Urobilinogen LESS THAN 2.0 Urine Leukocyte Esterase NEG Urine RBC 1 Urine WBC LESS THAN 1 Microscopic Urinalysis Comment CATH-CULT NOT IND White Blood Count 14.2 Red Blood Count 3.04 Hemoglobin 9.9 Hematocrit 30.9 Mean Corpuscular Volume 101.7 Mean Corpuscular Hemoglobin 32.5 Mean Corpuscular Hemoglobin Concent 32.0 Red Cell Distribution Width 15.6 Platelet Count 39 Mean Platelet Volume 11.3 Neutrophils (%) (Auto) 91.0 Lymphocytes (%) (Auto) 3.0 Monocytes (%) (Auto) 5.6 Eosinophils (%) (Auto) 0.1 Basophils (%) (Auto) 0.3 Neutrophils # (Auto) 12.9 Lymphocytes # (Auto) 0.4 Monocytes # (Auto) 0.8 Eosinophils # (Auto) 0.0 Basophils # (Auto) 0.0 CBC Comment AUTO DIFF Differential Comment AUTO DIFF CONFIRMED Platelet Estimate NORMAL Platelet Morphology Comment CLUMPED Prothrombin Time 11.7 Prothromb Time International Ratio 1.1 Blood Urea Nitrogen 18 19 Creatinine 1.26 1.16 Random Glucose 155 108 Total Protein 6.6 Albumin 2.8 Calcium Level 8.8 9.3 Alkaline Phosphatase 98 Aspartate Amino Transf (AST/SGOT) 26 Alanine Aminotransferase (ALT/SGPT) 28 Total Bilirubin 0.3 Sodium Level 143 142 Potassium Level 3.9 4.1 Chloride Level 108 110 Carbon Dioxide Level 21.9 23.5 Anion Gap 13 9 Estimat Glomerular Filtration Rate 41 45 Lactic Acid Level 5.7 2.4 Total Creatine Kinase 179 Troponin I 0.02 Thyroid Stimulating Hormone 3rd Gen 16.800 Ammonia LESS THAN 10 Date/Time Source Procedure Growth Status 12/22/16 19:45 Blood Peripheral Aerobic Blood Culture Pending Received 12/22/16 19:45 Blood Peripheral Anaerobic Blood Culture Pending Received Result Diagram: 12/22/16194412/23/1645 Imaging Last Impressions Head CT 12/22/161808 Signed Impressions: Service Date/Time: Thursday, December 22, 2016 19:12 - CONCLUSION: No acute intracranial abnormality. Chronic white matter changes. Juancho Villalobos MD Chest X-Ray 12/22/[id number] Signed Impressions: Service Date/Time: Thursday, December 22, 2016 18:29 - CONCLUSION: No evidence of acute cardiopulmonary disease. Juancho Villalobos MD Abdomen/Pelvis CT 12/22/16 0000 Signed Impressions: Service Date/Time: Thursday, December 22, 2016 21:34 - CONCLUSION: 1. Severe diverticulosis with mild uncomplicated diverticulitis of the descending and sigmoid colon. 2. Nonobstructing stone of the left kidney. 3. Trace atelectasis of both lung bases. 4. Atherosclerotic abdominal aorta. No aneurysm. 5. Summers catheter. Mild bladder wall thickening. MD Pina Dixon VTE Risk Assessment Caprini VTE Risk Assessment: Mod/High Risk (score >= 2) Caprini Risk Assessment Model Point Value = 1 Point Value = 2 Point Value = 3 Point Value = 5 Age 41-60 Minor surgery BMI > 25 kg/m2 Swollen legs Varicose veins or History of unexplained or recurrent spontaneous Oral contraceptives or hormone replacement Sepsis (< 1 month) Serious lung disease, including pneumonia (< 1 month) Abnormal pulmonary function Acute myocardial infarction Congestive heart failure (< 1 month) History of inflammatory bowel disease Medical patient at bed rest Age 61-74 Arthroscopic surgery Major open surgery (> 45 min) Laparoscopic surgery (> 45 min) Malignancy Confined to bed (> 72 hours) Immobilizing plaster cast Central venous access Age >= 75 History of VTE Family history of VTE Factor V Leiden Prothrombin [id number] Lupus anticoagulant Anticardiolipin antibodies Elevated serum homocysteine Heparin-induced thrombocytopenia Other congenital or acquired thrombophilia Stroke (< 1 month) Elective arthroplasty Hip, pelvis, or leg fracture Acute spinal cord injury (< 1 month) Prophylaxis Regimen Total Risk Factor Score Risk Level Prophylaxis Regimen 0-1 Low Early ambulation 2 Moderate Order ONE of the following: *Sequential Compression Device (SCD) *Heparin 5000 units SQ BID 3-4 Higher Order ONE of the following medications: *Heparin 5000 units SQ TID *Enoxaparin/Lovenox 40 mg SQ daily (WT < 150 kg, CrCl > 30 mL/min) *Enoxaparin/Lovenox 30 mg SQ daily (WT < 150 kg, CrCl > 10-29 mL/min) *Enoxaparin/Lovenox 30 mg SQ BID (WT < 150 kg, CrCl > 30 mL/min) AND/OR *Sequential Compression Device (SCD) 5 or more Highest Order ONE of the following medications: *Heparin 5000 units SQ TID (Preferred with Epidurals) *Enoxaparin/Lovenox 40 mg SQ daily (WT < 150 kg, CrCl > 30 mL/min) *Enoxaparin/Lovenox 30 mg SQ daily (WT < 150 kg, CrCl > 10-29 mL/min) *Enoxaparin/Lovenox 30 mg SQ BID (WT < 150 kg, CrCl > 30 mL/min) AND *Sequential Compression Device (SCD) Assessment and Plan Problem List: (1) Dehydration ICD Codes: E86.0 - Dehydration Plan: Patient from [facility] brought in as she was thought to be less responsive than her normal. Patient with recent CVA discharged 2016 - CT head revealed no acute intracranial abnormalities. Chronic white matter changes. - Urinalysis reviewed trace proteins negative ketones negative leukocyte esterase no culture indicated - Chest x-ray reviewed no evidence of acute cardiopulmonary disease. - CT abdomen and pelvis reviewed and reveals: Severe diverticulosis with mild uncomplicated diverticulitis of the descending and sigmoid colon. Nonobstructing stone in the left kidney. Trace atelectasis of both lung bases. Atherosclerosis abdominal aorta no aneurysm. Summers catheter mild bladder wall thickening - total Bilirubin 0.3, AST 26 ALT 28, alk phos 98 - Continue aspirin 81 mg daily - Patient currently on clindamycin 300 mg every 8 hours IV and Levaquin 500mg Q24H - Labs including repeat CBC, BMP as well as T4 vitamin B12 folate and ammonia pending - Platelet count 39, 000 repeat CBC pending Acute kidney injury likely secondary to dehydration - Patient received 1 L normal saline in emergency department - poor PO intake - GEntle IV hydration NS at 50ml/H Hypothyroidism - continue home levothyroxine 25 mcg daily - TSH 16.8, Free T4 1.08 - recommend repeating TSH and T4 in 1 week to see trend Dementia - Continue home Namenda 10 mg by mouth daily - Hold Haldol as patient is currently Hypertension - continue hydralazine 25 mg 4 times a day -Hold enalapril 20 mg by mouth twice a day due to patient's acute kidney injury seizure disorder -continue home Keppra 500 mg by mouth every [address] 250 mg 3 times a day Diabetes mellitus type 2 - hold metformin while patient is in the hospital. Accu-Cheks before meals at bedtime with low-dose sliding scale insulin coverage DVT prophylaxis with SCDs Discussed with daughter Wendi Harry would like patient to be a Full Code at this time - consult placed to Palliative care to assist with establishing goals of care (2) Dementia ICD Codes: F03.90 - Unspecified dementia without behavioral disturbance Plan: See above (3) Diverticulitis ICD Codes: K57.92 - Diverticulitis of intestine, part unspecified, without perforation or abscess without bleeding Plan: See above (4) HTN (hypertension) ICD Codes: I10 - Essential (primary) hypertension Plan: See above (5) DM (diabetes mellitus) ICD Codes: E11.9 - Type 2 diabetes mellitus without complications Status: Chronic Plan: See above (6) Seizure ICD Codes: R56.9 - Unspecified convulsions Status: Acute Plan: See above (7) Stroke ICD Codes: I63.9 - Cerebral infarction, unspecified Status: Chronic Plan: See above Assessment and Plan Patient examined. Assessment and plan formulated with Sarah Crockett PA-C. I agree with the above. Pt can give her name and speaks only a few words. Pt does follow most simple commands, eg stick out your tongue Pt's PO intake is poor. Previous CVA has left pt debilitated. Hospice would be appropriate. Await input from Palliative Medicine. Anticipate discharge back to [facility] 12/24 Problem Qualifiers (1) DM (diabetes mellitus): Sarah Crockett Dec 23, 2016 09:43 Mo Chandler DO Dec 23, 2016 11:38
[2016-12-23] MEDS ORDERED: LEVO25TA4 PO (10:49)
--- NOTE | 2016-12-23 11:07 | PD.CONS ---
Consult Service Palliative Care Consult Requested By Chris Crockett [facility] Primary Care Physician Tacho Goldberg MD Reason for Consultation a. To assist with evaluation and management of symptoms including: b. To assist medical decision maker(s) with: better understanding of current medical conditions; weighing benefits/burdens of medical treatment options; making medical treatment decisions. (MarnieAlicia HAQUE) HPI History of Present Illness This 81-year-old patient presented to the ED on 12/22/16, from her nursing facility for reported altered mental status and possible syncopal episode. Patient with history of DMR, dementia. EMS reporting systolic blood pressure 70s and roots. They were unable to obtain IV. Patient unable to provide additional history. Of note this patient known to avoid care from prior consultation in October 2016 * Additional history and ER per daughter she reported episode of vomiting, no witnessed seizure activity. Complaints though poor historian. Patient was noted to be sleeping comfortably to ED physician exam. Exam benign. Lactic acid 5.5, WBC 14.7. Patient with large bowel movement in ED. CT abdomen pelvis = mild diverticulitis, mild thickening bladder wall. IV fluids, broad- spectrum antibiotics initiated. Admitted for further evaluation and management. * CT brain with no acute findings, chronic white matter changes. UA trace proteins negative ketones, no culture indicated. CXR no acute cardiopulmonary process. REBECA likely secondary dehydration, BUN 18, creatinine 1.26. IV fluids continued. * medical attending d/w daughter who requested full code. palliative care consulted to assist w goals of treatment. Repeat labs, blood cultures pending. Patient seen in room No visitors present. She is sleeping on her side. When I attempt to awaken her for exam, conversation she squeezes eyes closed. She does follow commands to wiggle toes does not follow commands to move hands or stick out tongue etc. Observe moving all 4 extremities spontaneously. d/w primary nurse-- she indicates the pt has refused some meds and PO today. She has not been agitated or combative today. Call to patient daughter after exam. Spoke with Wendi. Wendi indicates as she has during prior palliative care consultation that she has been serving as the primary contact and decision maker for patient, her brother Blaze lives out of the area, sister Lili lives in [place] though has not been in communication for several years and has drug and alcohol difficulties. Another sister is dependent for care in a nursing facility. I did review with cam that for any major decision-making all with all children should be involved with this. Additional history per palliative consult October 2016: That admission patient presented from [facility] a left unresponsive with questionable seizure activity. CT brain that admission with no acute process, EEG with no seizure activity findings. Patient reported from primary provider to have significant dementia, with known psychoses, and episodes of severe agitation/combativeness. MRI that admission= possible tiny acute left frontal infarct, disproportional to presentation and current status. Carotid ultrasound with no hemodynamically significant stenosis. Goals at that time were aggressive, as long as pt could return to prior level of interaction with family they would want to continue available treatments. Elected full code. Function/Cognitive Trajectory Patient with dementia and resides [facility]. Known episodes of agitation and combativeness towards staff and residents at prior [facility] facilities. Patient reported to have retired 6 years ago with cognitive status deteriorating about 4 years ago at which time her had significant deterioration due to a CVA at time. 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 Per last admission was reported to still be ambulatory verbalizing in full sentences and able to make basic needs known and continent at times. Normally with a good appetite. Participates in ADLs though requires guidance and prompting. (Alicia Dye) Past Family Social History Coded Allergies: metronidazole (Unverified Allergy, Mild, NAUSEA, 11/24/16) amlodipine (Unverified Allergy, Unknown, 11/24/16) benzonatate (Unverified Allergy, Unknown, 11/24/16) clonidine (Unverified Allergy, Unknown, 11/24/16) fluticasone (Unverified Allergy, Unknown, 11/24/16) fluticasone furoate (Unverified Allergy, Unknown, 11/24/16) labetalol (Unverified Allergy, Unknown, 11/24/16) propranolol (Unverified Allergy, Unknown, 11/24/16) salmeterol (Unverified Allergy, Unknown, 11/24/16) Past Medical History Dementia with behavioral disturbances Hypertension Diabetes . Past Surgical History Hysterectomy . Reported Medications Macrobid (Nitrofurantoin Monoh/Nitrofur Macro) 100 Mg Cap 100 Mg PO BID 7 Days Methyldopa 250 Mg Tab 250 Mg PO TID Hydralazine (Hydralazine HCl) 100 Mg Tab 100 Mg PO TID 30 Days Keppra (Levetiracetam) 500 Mg Tab 500 Mg PO Q12HR 30 Days Depakene (Valproic Acid) 250 Mg Cap 500 Mg PO BID 30 Days Nizoral Topical Shampoo (Ketoconazole) 2% Sham 1 Applic EXTERNAL DAILY Haloperidol 0.5 Mg Tab 0.5 Mg PO DAILY@1600 Escitalopram (Escitalopram Oxalate) 10 Mg Tab 10 Mg PO DAILY Enalapril (Enalapril Maleate) 10 Mg Tab 20 Mg PO 2 BID Aspirin Low Strength (Aspirin) 81 Mg Chew 81 Mg CHEW DAILY Reported Senna S (Sennosides-Docusate Sodium) 8.6-50 Mg Tab 2 Tab PO HS Namenda (Memantine) 10 Mg Tab 10 Mg PO DAILY Metformin (Metformin HCl) 500 Mg Tab 500 Mg PO BIDPC With meals . Current Medications Medications (Trade) Dose Ordered Sig/Dayna Route Start Time Stop Time Status Last Admin (NS Flush) 2 ml UNSCH PRN IV FLUSH 12/22/16 18:15 Clindamycin Phosphate 300 mg/ Sodium Chloride 102 ml @ 104 mls/hr Q8H IV 12/23/16 00:00 12/23/16 09:03 (Aspirin Chew) 81 mg DAILY CHEW 12/23/16 09:00 12/23/16 08:26 (Depakote Dr) 250 mg TID PO 12/23/16 09:00 12/23/16 08:26 (Lexapro) 10 mg DAILY PO 12/23/16 09:00 (Apresoline) 25 mg QID PO 12/23/16 09:00 (Keppra) 500 mg Q12HR PO 12/23/16 09:00 12/23/16 08:26 (Namenda) 10 mg DAILY PO 12/23/16 09:00 12/23/16 08:26 (Brandie-Colace) 2 tab HS PO 12/23/16 21:00 (D50w (Vial) Inj) 50 ml UNSCH PRN IV 12/23/16 08:00 (Glucagon Inj) 1 mg UNSCH PRN OTHER 12/23/16 08:00 (NovoLOG SUPPLEMENTAL SCALE) 1 ACHS SLIDING SCALE SQ 12/23/16 08:00 12/23/16 08:25 Levofloxacin/ Dextrose 50 ml @ 50 mls/hr Q24H IV 12/23/16 23:00 Family History No family history of psychiatric illness, one daughter with drug/alcohol addiction Substance Use Tobacco: Nonsmoker Alcohol: None Prescription med abuse: None Illicits: None . Psychosocial History Recently , with dementia recently in past year. Lived at [facility], recently moved to [facility]. Originally from [place]. Completed a high school education. Worked for the [employer] for over 30 years, retired 6 years ago. twice, the first ended in divorce, her second recently . Has 3 daughters, 1 son. Remains supported by son Blaze, dtr Wendi. Wendi reports 1 daughter (her sister ) is actually now a [place] resident and dependent for care, and Wendi serves as decision maker for 2/2 her. Another daughter lives somewhere in but has drug abuse problems and has not been in communication with family. . Spiritual/Cultural Factors Yazidism . (Alicia Dye) Durable Power of Special Procedures Tech: Copy in medical record (power of assistant in nursing names daughter Wendi, son Blaze is secondary however this document indicates it does not pertain to medical decision-making) Ethical and Legal Issues Patient unable to make decisions secondary to dementia. Patient does have power of assistant in nursing forms on record here however this document specifically states does not pertain to medical decision making. This designates dtr Wendi, son Blaze. Upon phone discussion w dtr Wendi, she informs that September 2016 during psych admission, they completed paperwork with a dining room busser present here in psych unit appointing her as guardian for pt, including healthcare. She does not have copies of this. Will need to obtain documentation of this, otherwise per statutes legal decision making would fall to majority of available children. (Alicia Dye) Physical Exam Vital Signs Date Time Temp Pulse Resp B/P (MAP) Pulse Ox O2 Delivery O2 Flow Rate FiO2 12/23/16 07:43 92 Nasal Cannula 1.00 12/23/16 07:00 99.4 77 16 182/77 (112) 98 12/23/16 03:21 98.1 73 18 182/79 (113) 98 12/23/16 01:20 12/22/16 23:08 76 18 169/75 (106) Nasal Cannula 4.00 12/22/16 19:40 98.2 86 21 142/90 (107) 100 Nasal Cannula 4.00 12/22/16 18:23 94 Nasal Cannula 2.00 12/22/16 18:06 96.1 12/22/16 17:53 110 12 Room Air 12/22/16 17:46 97.3 110 12 107/56 (73) 12/23/16 12/24/16 18:59 06:59 Intake Total 102 ml Balance 102 ml IV Total 102 ml Exam CONSTITUTIONAL/GENERAL: This is an adequately nourished patient, in no apparent distress--keeps eyes closed/non-participative with exam TUBES/LINES/DRAINS: Summers upper extremity left, Summers catheter SKIN: No jaundice, rashes, or lesions. Peripheral IV left upper extremity, multiple areas of ecchymosis to bilateral upper extremities, small skin tear right upper extremity. No wounds seen anteriorly. Skin temperature appropriate. Not diaphoretic. HEAD: Atraumatic. Normocephalic. EYES: Will not open eyes for exam No injection or drainage. Fundi not examined. ENT: Nose without bleeding or purulent drainage. Will not open mouth for oropharynx exam. NECK: Trachea midline. Supple, nontender. No palpable thyroid enlargement or nodularity. CARDIOVASCULAR: Regular rate and rhythm without murmurs No JVD. Peripheral pulses symmetric. RESPIRATORY/CHEST: Symmetric, unlabored respirations. Clear to auscultation. Breath sounds equal bilaterally. No wheezes, rales, or rhonchi. GASTROINTESTINAL: Abdomen soft, no apparent tenderness, nondistended. No hepato- splenomegaly, or palpable masses. No guarding. Bowel sounds present. GENITOURINARY: Without palpable bladder distension. Summers catheter in place. MUSCULOSKELETAL: Extremities without clubbing, cyanosis, or edema. No mottling or clubbing. LYMPHATICS: No palpable cervical or supraclavicular adenopathy. NEUROLOGICAL: Lethargic/sleeping. Will not open eyes for exam, squeezes them shut when requested to open. Does move toes to command, does not move hands to command. Does move all 4 extremities spontaneously. Follow other commands for me. PSYCHIATRIC: No obvious anxiety/depression--limited assessment (Alicia Dye) Diagnostic Tests Laboratory Laboratory Tests Test 12/22/16 18:50 12/22/16 19:45 12/22/16 22:30 12/23/16 08:45 Urine Color YELLOW (YELLW/STRAW) Urine Turbidity CLEAR (CLEAR) Urine pH 6.0 (5.0-8.5) Urine Specific [place] 1.019 (1.002-1.035) Urine Protein TRACE mg/dL (NEG-TRACE) Urine Glucose (UA) NEG mg/dL (NEG) Urine Ketones NEG mg/dL (NEG) Urine Occult Blood NEG (NEG) Urine Nitrite NEG (NEG) Urine Bilirubin NEG (NEG) Urine Urobilinogen LESS THAN 2.0 MG/DL (LESS Urine Leukocyte Esterase NEG (NEG) Urine RBC 1 /hpf (0-3) Urine WBC LESS THAN 1 /hpf (0-5) Microscopic Urinalysis Comment CATH-CULT NOT IND White Blood Count 14.2 TH/MM3 (4.0-11.0) Red Blood Count 3.04 MIL/MM3 (4.00-5.30) Hemoglobin 9.9 GM/DL (11.6-15.3) Hematocrit 30.9 % (35.0-46.0) Mean Corpuscular Volume 101.7 FL (80.0-100.0) Mean Corpuscular Hemoglobin 32.5 PG (27.0-34.0) Mean Corpuscular Hemoglobin Concent 32.0 % (32.0-36.0) Red Cell Distribution Width 15.6 % (11.6-17.2) Platelet Count 39 TH/MM3 (150-450) Mean Platelet Volume 11.3 FL (7.0-11.0) Neutrophils (%) (Auto) 91.0 % (16.0-70.0) Lymphocytes (%) (Auto) 3.0 % (9.0-44.0) Monocytes (%) (Auto) 5.6 % (0.0-8.0) Eosinophils (%) (Auto) 0.1 % (0.0-4.0) Basophils (%) (Auto) 0.3 % (0.0-2.0) Neutrophils # (Auto) 12.9 TH/MM3 (1.8-7.7) Lymphocytes # (Auto) 0.4 TH/MM3 (1.0-4.8) Monocytes # (Auto) 0.8 TH/MM3 (0-0.9) Eosinophils # (Auto) 0.0 TH/MM3 (0-0.4) Basophils # (Auto) 0.0 TH/MM3 (0-0.2) CBC Comment AUTO DIFF Differential Comment AUTO DIFF CONFIRMED Platelet Estimate NORMAL (NORMAL) Platelet Morphology Comment CLUMPED (NORMAL) Prothrombin Time 11.7 SEC (9.8-11.6) Prothromb Time International Ratio 1.1 RATIO Blood Urea Nitrogen 18 MG/DL (7-18) 19 MG/DL (7-18) Creatinine 1.26 MG/DL (0.50-1.00) 1.16 MG/DL (0.50-1.00) Random Glucose 155 MG/DL (74-106) 108 MG/DL (74-106) Total Protein 6.6 GM/DL (6.4-8.2) Albumin 2.8 GM/DL (3.4-5.0) Calcium Level 8.8 MG/DL (8.5-10.1) 9.3 MG/DL (8.5-10.1) Alkaline Phosphatase 98 U/L (45-117) Aspartate Amino Transf (AST/SGOT) 26 U/L (15-37) Alanine Aminotransferase (ALT/SGPT) 28 U/L (10-53) Total Bilirubin 0.3 MG/DL (0.2-1.0) Sodium Level 143 MEQ/L (136-145) 142 MEQ/L (136-145) Potassium Level 3.9 MEQ/L (3.5-5.1) 4.1 MEQ/L (3.5-5.1) Chloride Level 108 MEQ/L (98-107) 110 MEQ/L (98-107) Carbon Dioxide Level 21.9 MEQ/L (21.0-32.0) 23.5 MEQ/L (21.0-32.0) Anion Gap 13 MEQ/L (5-15) 9 MEQ/L (5-15) Estimat Glomerular Filtration Rate 41 ML/MIN (>89) 45 ML/MIN (>89) Lactic Acid Level 5.7 mmol/L (0.4-2.0) 2.4 mmol/L (0.4-2.0) Total Creatine Kinase 179 U/L (26-192) Troponin I 0.02 NG/ML (0.02-0.05) Thyroid Stimulating Hormone 3rd Gen 16.800 uIU/ML (0.358-3.740) Ammonia LESS THAN 10 MCMOL/L Vitamin B12 Level 1023 PG/ML (193-986) Folate 17.1 NG/ML (3.1-17.5) Free Thyroxine 1.08 NG/DL (0.76-1.46) Rapid Plasma Reagin NON-REACTIVE (NON-REACTVE) (Alicia Dye) Result Diagram: 12/22/16194412/23/16 0845 Microbiology Microbiology Date/Time Source Procedure Growth Status 12/22/16 19:45 Blood Peripheral Aerobic Blood Culture Pending Received 12/22/16 19:45 Blood Peripheral Anaerobic Blood Culture Pending Received 12/22/16 19:40 Blood Peripheral Aerobic Blood Culture Pending Received 12/22/16 19:40 Blood Peripheral Anaerobic Blood Culture Pending Received Imaging Last Impressions Head CT 12/22/161808 Signed Impressions: Service Date/Time: Thursday, December 22, 2016 19:12 - CONCLUSION: No acute intracranial abnormality. Chronic white matter changes. Juancho Villalobos MD Chest X-Ray 12/22/161808 Signed Impressions: Service Date/Time: Thursday, December 22, 2016 18:29 - CONCLUSION: No evidence of acute cardiopulmonary disease. Juancho Villalobos MD Abdomen/Pelvis CT 12/22/16 0000 Signed Impressions: Service Date/Time: Thursday, December 22, 2016 21:34 - CONCLUSION: 1. Severe diverticulosis with mild uncomplicated diverticulitis of the descending and sigmoid colon. 2. Nonobstructing stone of the left kidney. 3. Trace atelectasis of both lung bases. 4. Atherosclerotic abdominal aorta. No aneurysm. 5. Summers catheter. Mild bladder wall thickening. Juancho Villalobos MD (Alicia Dye) Patient/Family Conference Family Conference Time (mins): 20 Family Conference Location: Telephone Issues Discussed: Spoke with daughter Wendi on phone, discussion included the following: * Palliative care role, purpose, approach * Additional medical, psychosocial, and spiritual history * Patients general health, functional status, and cognitive changes in the months leading up to the current hospitalization * Patient/family understanding of the current medical problems * Patient/family understanding of prognosis * Patients goals of care as best understood from advance directives and/or conversations and/or values * Current medical treatment options and benefits/burdens of those options * CODE STATUS * Legal decision makers * Likely scenarios comparing ongoing aggressive care with a transition to comfort measures only-briefly explore that dementia is progressive in nature and at some point patient will continue to have decline despite aggressive treatments, and then she would have the option for comfort measures versus further invasive artificial measures. * Questions answered to the best of my ability * Palliative care contact information provided Daughter feels patient has been doing fine at dementia facility since most recent hospitalization, she feels she is returned to near her base line level. Patient sometimes ambulatory, patient for the most part eats well when prompted or fed. Patient still verbalizes short sentences, and still recognizes daughter and grandson. Upon review of progressive nature of dementia she acknowledges that at some point she understands her mother will become very sick from dementia but right now she feels overall she is doing well and her quality of life is reasonable. She indicates she mistakenly elected a DNR because she did not realize what this document entailed. She wishes to continue with available aggressive treatments to sustain her mother. (Alicia Dye) Assessment and Plan Disease Oriented Problem List: (1) Encephalopathy (2) Dementia with behavioral disturbance (3) Sepsis (4) Dehydration (5) Diverticulitis (6) Hypertension (7) DM (diabetes mellitus) Symptom Scale: (1) Encephalopathy Pertinent Non-Medical Issues Psychosocial:Recently , with dementia recently . Lives at [facility]. Originally from [place]. Completed a high school education. Worked for the [employer] for over 30 years, retired 6 years ago. twice, the first ended in divorce, her second recently . Spiritual: Yazidism Legal:Patient does have power of assistant in nursing forms on record here however this document specifically states does not pertain to medical decision making. This designates dtr Wendi, son Blaze. Upon phone discussion w les Adame, she informs that September 2016 during psych admission, they completed paperwork with a dining room busser present here in psych unit appointing her as guardian for pt, including healthcare. She does not have copies of this. Will need to obtain documentation of this, otherwise per statutes legal decision making would fall to majority of available children. Ethical issues impacting care: . Important Contacts Daughter Wendi Schap [phone] son Blaze Irvin [phone]. daughter Pari Robin ([address] [place]): . Prognosis Pt was admitted for AMS possible syncopal episode. She had findings of dehydration, diverticulitis. Lactic acid, WBC elevated, possible sepsis. ( Repeat labs, cultures pending) She also has a recent admission October 2016 for Seizure vs CVA. No further seizures. Possible tiny CVA per MRI findings, palliative care also followed that admission. She has known history of dementia , though is still high functioning, not end stage. Based on current condition/ assessments , appears she can recover from current acute issues and return to prior NH setting. She will be expected to have progression and decline r/t underlying dementia diagnosis, though does not currently have end stage disease process. . Code Status: Full Code Plan * Legal decision maker:Patient does have power of assistant in nursing forms on record here however this document specifically states does not pertain to medical decision making. This designates dtr Wendi, son Blaze. Upon phone discussion w dtr Wendi, she informs that September 2016 during psych admission, they completed paperwork with a dining room busser present here in psych unit appointing her as guardian for pt, including healthcare. She does not have copies of this. Will need to obtain documentation of this, otherwise per [place] statutes legal decision making would fall to majority of available children. --> Palliative care social science research assistant later reviewed this documentation which was not an actual guardian appointment this was a guardian advocate during the Piña act admission which only applied during that specific Piña act admission. 1 daughter is in [facility] dependent for care, and another lives in [place] and "she mistreated and took advantage which is why she doesn't have contact" * Goals: Daughter Wendi expresses aggressive goals, she feels her mother baseline has a reasonable quality of life and that her mother would want to continue treatments to maintain this. * CODE STATUS: Full (previous community DNR noted in record, daughter madison indicates that when she signed this she did not realize what it entailed) * SYMPTOMS: --encephalopathy/ AMS- dehydration, REBECA. History of dementia. Daughter feels patient is near her baseline -- hx combativeness/agitation episodes. Dementia. Has always had a "stubborn" personality per daughter during prior admission. Increase in behaviors at nursing facility. none during hospital course October 2016. No reported recent agitation or restlessness per daughter prior to admission, or during this hospital course. Palliative care will continue to follow during hospital course as condition evolves, to assist patient/decision-maker with understanding of medical conditions, weighing benefits/burdens of treatment options, for clarification of goals of treatment. Additionally will assist with any symptoms of palliative concern (Alicia Dye) Time Spent Total Floor Time (mins): 45 (Alicia Dye) Thank you for the opportunity to participate in the care of Ms. Meade. (Alicia Dye) Attestation To help prompt me to consider important information that might be impacting today's encounter and assessment, information from prior notes written by myself or my colleagues may have been "brought forward" into today's note. My signature on this note, however, is an attestation that I personally performed the exam, history, and/or decision-making noted today, and, unless otherwise indicated, the interactions with patient, family, and staff as well as the review of records all occurred today. I also attest that the listed assessment and stated plan reflect my best clinical judgment today based on the combination of historical information, prior notes, and today's exam/ interactions. When time spent is documented, it refers only to time spent today by the signer, or if indicated, combined time spent today by collaborating physician/nurse practitioner. (Alicia Dye) Collaborating MD Comments Chart reviewed. Case discussed with palliative care RETAIL SERVICE REPRESENTATIVE. Above note reviewed and I concur. . (Prieto Mason MD) Alicia Dye Dec 23, 2016 11:07 Prieto Mason MD Jan 17, 2017 11:47
[2016-12-23] MEDS ORDERED: ENALAPRILAT 1.25 MG/ML VIAL IV PUSH PRN (11:30)
[2016-12-23] MEDS: SODIUM CHLOR 0.9% 1000 ML INJ 1,000 ML IV SCH (11:45)
[2016-12-23 14:08] LABS: HEMOGLOBIN Ao 84.5 %; HEMOGLOBIN LA1C 2.3 %; HEMOGLOBIN P3 5.9 %
[2016-12-23 18:08] LABS: AUTOMATED NEUTROPHIL # 12.4 TH/MM3 (1.8-7.7); BASOPHIL # 0.1 TH/MM3 (0-0.2); BASOPHIL % 0.3 % (0.0-2.0); EOSINOPHIL % 0.1 % (0.0-4.0); HEMATOCRIT 30.5 % (35.0-46.0); LYMPH % 10.9 % (9.0-44.0); LYMPHOCYTE # 1.7 TH/MM3 (1.0-4.8); MEAN CELL VOLUME 102.5 FL (80.0-100.0); MEAN CORPUSCULAR HEMOGLOBIN 33.3 PG (27.0-34.0); MEAN CORPUSCULAR HGB CONC 32.5 % (32.0-36.0); MONO % 10.5 % (0.0-8.0); NEUT % 78.2 % (16.0-70.0); RED BLOOD COUNT 2.97 MIL/MM3 (4.00-5.30)
[2016-12-23 18:17] LABS: HEMO FLAGS AUTO DIFF; PLATELET COUNT 114 TH/MM3 (150-450); WHITE BLOOD COUNT 11.7 TH/MM3 (4.0-11.0)
[2016-12-23 18:18] LABS: PLATELET ESTIMATE SMEAR LOW (NORMAL); PLATELET MORPHOLOGY NORMAL (NORMAL); SCAN/DIFF AUTO DIFF CONFIRMED
[2016-12-23] MEDS: DOCUSATE SODIUM 50 MG/SENNA 8.6 MG TAB PO SCH (20:23)
[2016-12-23] MEDS: ENALAPRIL MALEATE 10 MG TAB PO SCH (20:23)
--- NOTE | 2016-12-23 21:35 | EKG ---
Date Performed: 12/22/2016 Time Performed: 19:53:16 PTAGE: 81 years EKG: Sinus rhythm WITH OCCASIONAL VENTRICULAR PREMATURE COMPLEXES NONSPECIFIC ST & T-WAVE ABNORMALITY ABNORMAL ECG PREVIOUS TRACING : 12/14/2016 15.33 Compared to prior tracing no significant change DOCTOR: Tito Powell Interpretating Date/Time 12/23/2016 21:35:14
[2016-12-23] MEDS ORDERED: LEVOFLOXACIN/DEXTROSE 250 MG/50 ML IV SCH (23:00)
[2016-12-24] VITALS (7 sets, daily range): BP systolic 128–175; BP diastolic 57–79; PULSE 62–75; RESP 16–20; TEMP 97.9–98.8; O2SAT 95–100
[2016-12-24] MEDS: CLINDAMYCIN INJ 300 MG in SODIUM CHLORIDE 0.9% INJ 100 ML IV SCH ×2 (00:17→07:58)
[2016-12-24] MEDS: LEVOTHYROXINE SODIUM 25 MCG TAB PO SCH (05:13)
[2016-12-24] MEDS: INSULIN ASPART SUPPLEMENTAL SCALE SQ SCH ×4 (08:00→21:00)
[2016-12-24] MEDS: hydrALAZINE HCL 25 MG TAB PO SCH ×5 (08:01→21:31)
[2016-12-24] MEDS: ENALAPRIL MALEATE 10 MG TAB PO SCH ×3 (08:03→21:32)
[2016-12-24] MEDS: MEMANTINE HCL 10 MG TAB PO SCH (08:05)
[2016-12-24] MEDS: levETIRAcetam 500 MG TAB PO SCH ×3 (08:05→21:31)
[2016-12-24] MEDS: DIVALPROEX SODIUM DELAYED RELEASE 250 MG TAB PO SCH ×3 (08:06→17:22)
[2016-12-24] MEDS: ASPIRIN 81 MG CHEW TAB CHEW SCH (08:08)
[2016-12-24] MEDS: SODIUM CHLOR 0.9% 1000 ML INJ 1,000 ML IV SCH (08:10)
[2016-12-24] MEDS: ESCITALOPRAM OXALATE 10 MG TAB PO SCH (09:00)
--- NOTE | 2016-12-24 09:47 | HHI.PR ---
Subjective Remarks Patient resting in bed more alert today- per nurse ate breakfast better today and took AM meds still speaking only 1-2 words offers no complains Objective Vitals Vital Signs Date Time Temp Pulse Resp B/P (MAP) Pulse Ox O2 Delivery O2 Flow Rate FiO2 12/24/16 09:19 98.0 74 18 135/64 (87) 99 12/24/16 05:19 98.8 68 18 175/79 (111) 98 12/24/16 01:10 97.9 62 16 156/73 (100) 98 12/23/16 20:06 95 Nasal Cannula 1.00 12/23/16 19:27 99.7 72 16 135/61 (85) 96 12/23/16 18:02 159/71 (100) 12/23/16 15:42 99.4 75 16 161/69 (99) 95 12/23/16 11:21 99.5 70 18 172/77 (108) 97 12/24/16 12/24/16 12/25/16 15:00 23:00 07:00 Intake Total 900 ml Balance 900 ml IV Total 900 ml Result Diagram: 12/23/16 1516 12/23/16 0845 Other Results Laboratory Tests Test 12/22/16 18:50 12/22/16 19:45 12/22/16 22:30 12/23/16 08:45 Urine Color YELLOW Urine Turbidity CLEAR Urine pH 6.0 Urine Specific [place] 1.019 Urine Protein TRACE mg/dL Urine Glucose (UA) NEG mg/dL Urine Ketones NEG mg/dL Urine Occult Blood NEG Urine Nitrite NEG Urine Bilirubin NEG Urine Urobilinogen LESS THAN 2.0 MG/DL Urine Leukocyte Esterase NEG Urine RBC 1 /hpf Urine WBC LESS THAN 1 /hpf Microscopic Urinalysis Comment CATH-CULT NOT IND White Blood Count 14.2 TH/MM3 Red Blood Count 3.04 MIL/MM3 Hemoglobin 9.9 GM/DL Hematocrit 30.9 % Mean Corpuscular Volume 101.7 FL Mean Corpuscular Hemoglobin 32.5 PG Mean Corpuscular Hemoglobin Concent 32.0 % Red Cell Distribution Width 15.6 % Platelet Count 39 TH/MM3 Mean Platelet Volume 11.3 FL Neutrophils (%) (Auto) 91.0 % Lymphocytes (%) (Auto) 3.0 % Monocytes (%) (Auto) 5.6 % Eosinophils (%) (Auto) 0.1 % Basophils (%) (Auto) 0.3 % Neutrophils # (Auto) 12.9 TH/MM3 Lymphocytes # (Auto) 0.4 TH/MM3 Monocytes # (Auto) 0.8 TH/MM3 Eosinophils # (Auto) 0.0 TH/MM3 Basophils # (Auto) 0.0 TH/MM3 CBC Comment AUTO DIFF Differential Comment AUTO DIFF CONFIRMED Platelet Estimate NORMAL Platelet Morphology Comment CLUMPED Prothrombin Time 11.7 SEC Prothromb Time International Ratio 1.1 RATIO Blood Urea Nitrogen 18 MG/DL 19 MG/DL Creatinine 1.26 MG/DL 1.16 MG/DL Random Glucose 155 MG/DL 108 MG/DL Total Protein 6.6 GM/DL Albumin 2.8 GM/DL Calcium Level 8.8 MG/DL 9.3 MG/DL Alkaline Phosphatase 98 U/L Aspartate Amino Transf (AST/SGOT) 26 U/L Alanine Aminotransferase (ALT/SGPT) 28 U/L Total Bilirubin 0.3 MG/DL Sodium Level 143 MEQ/L 142 MEQ/L Potassium Level 3.9 MEQ/L 4.1 MEQ/L Chloride Level 108 MEQ/L 110 MEQ/L Carbon Dioxide Level 21.9 MEQ/L 23.5 MEQ/L Anion Gap 13 MEQ/L 9 MEQ/L Estimat Glomerular Filtration Rate 41 ML/MIN 45 ML/MIN Lactic Acid Level 5.7 mmol/L 2.4 mmol/L Total Creatine Kinase 179 U/L Troponin I 0.02 NG/ML Thyroid Stimulating Hormone 3rd Gen 16.800 uIU/ML Hemoglobin A1c 5.2 % Ammonia LESS THAN 10 MCMOL/L Vitamin B12 Level 1023 PG/ML Folate 17.1 NG/ML Free Thyroxine 1.08 NG/DL Valproic Acid (Depakene) Level 16 MCG/ML Rapid Plasma Reagin NON-REACTIVE Test 12/23/16 15:16 White Blood Count 11.7 TH/MM3 Red Blood Count 2.97 MIL/MM3 Hemoglobin 9.9 GM/DL Hematocrit 30.5 % Mean Corpuscular Volume 102.5 FL Mean Corpuscular Hemoglobin 33.3 PG Mean Corpuscular Hemoglobin Concent 32.5 % Red Cell Distribution Width 16.0 % Platelet Count 114 TH/MM3 Mean Platelet Volume 8.9 FL Neutrophils (%) (Auto) 78.2 % Lymphocytes (%) (Auto) 10.9 % Monocytes (%) (Auto) 10.5 % Eosinophils (%) (Auto) 0.1 % Basophils (%) (Auto) 0.3 % Neutrophils # (Auto) 12.4 TH/MM3 Lymphocytes # (Auto) 1.7 TH/MM3 Monocytes # (Auto) 1.7 TH/MM3 Eosinophils # (Auto) 0.0 TH/MM3 Basophils # (Auto) 0.1 TH/MM3 CBC Comment AUTO DIFF Differential Comment AUTO DIFF CONFIRMED Platelet Estimate LOW Platelet Morphology Comment NORMAL Imaging Last Impressions Head CT 12/22/16 180 Signed Impressions: Service Date/Time: Thursday, December 22, 2016 19:12 - CONCLUSION: No acute intracranial abnormality. Chronic white matter changes. Juancho Villalobos MD Chest X-Ray 12/22/161808 Signed Impressions: Service Date/Time: Thursday, December 22, 2016 18:29 - CONCLUSION: No evidence of acute cardiopulmonary disease. Juancho Villalobos MD Abdomen/Pelvis CT 12/22/16 0000 Signed Impressions: Service Date/Time: Thursday, December 22, 2016 21:34 - CONCLUSION: 1. Severe diverticulosis with mild uncomplicated diverticulitis of the descending and sigmoid colon. 2. Nonobstructing stone of the left kidney. 3. Trace atelectasis of both lung bases. 4. Atherosclerotic abdominal aorta. No aneurysm. 5. Summers catheter. Mild bladder wall thickening. Juancho Villalobos MD Objective Remarks GENERAL: This is a elderly 81 year old female patient, SKIN: No rashes, ecchymoses or lesions. Cool and dry. HEAD: Atraumatic. Normocephalic. No temporal or scalp tenderness. EYES: Extraocular motions intact. No scleral icterus. No injection or drainage. CARDIOVASCULAR: Regular rate and rhythm without murmurs, gallops, or rubs. RESPIRATORY: Clear to auscultation. Breath sounds equal bilaterally. No wheezes , rales, or rhonchi. GASTROINTESTINAL: Abdomen soft, non-tender, nondistended. No guarding. MUSCULOSKELETAL: Extremities without clubbing, cyanosis, or edema. No joint tenderness, effusion, or edema noted. No calf tenderness. Negative Homans sign bilaterally. NEUROLOGICAL: Motor and sensory grossly within normal limits. 3 out of 5 muscle strength in all muscle groups. A/P Problem List: (1) Dehydration ICD Codes: E86.0 - Dehydration Plan: Patient from [facility] unit brought in as she was thought to be less responsive than her normal and vomited x 1. Patient with recent CVA discharged 11/11/2016 - CT head revealed no acute intracranial abnormalities. Chronic white matter changes. - Urinalysis reviewed trace proteins negative ketones negative leukocyte esterase no culture indicated - Chest x-ray reviewed no evidence of acute cardiopulmonary disease. - CT abdomen and pelvis reviewed and reveals: Severe diverticulosis with mild uncomplicated diverticulitis of the descending and sigmoid colon. Nonobstructing stone in the left kidney. Trace atelectasis of both lung bases. Atherosclerosis abdominal aorta no aneurysm. Summers catheter mild bladder wall thickening - total Bilirubin 0.3, AST 26 ALT 28, alk phos 98 - Continue aspirin 81 mg daily - started on Levaquin 500 mg PO daily and metronidazole 500 mg PO TID - Platelet count 39, 000 repeat CBC showed PLT 114,000 - repeat CBC and BMP in AM Positive blood culture 1/2 bottles with Staph Sp Coagulase negative- possible contaminate will monitor patient clinically - recheck CBC in AM Acute kidney injury likely secondary to dehydration- improving - Patient received 1 L normal saline in emergency department - poor PO intake - continue Gentle IV hydration NS at 50ml/H Hypothyroidism - continue home levothyroxine 25 mcg daily - TSH 16.8, Free T4 1.08 - recommend repeating TSH and T4 in 1 week to see trend Dementia - Continue home Namenda 10 mg by mouth daily - Hold Haldol as patient is currently Hypertension - continue hydralazine 25 mg 4 times a day -Hold enalapril 20 mg by mouth twice a day due to patient's acute kidney injury seizure disorder -continue home Keppra 500 mg by mouth every [address] 250 mg 3 times a day Diabetes mellitus type 2 - hold metformin while patient is in the hospital. Accu-Cheks before meals at bedtime with low-dose sliding scale insulin coverage DVT prophylaxis with SCDs Discussed with daughter Wendi Harry 12/23/16 would like patient to be a Full Code at this time - consult placed to Palliative care to assist with establishing goals of care, appreciate their assistance (2) Dementia ICD Codes: F03.90 - Unspecified dementia without behavioral disturbance Plan: See above (3) Diverticulitis ICD Codes: K57.92 - Diverticulitis of intestine, part unspecified, without perforation or abscess without bleeding Plan: See above (4) HTN (hypertension) ICD Codes: I10 - Essential (primary) hypertension Plan: See above (5) DM (diabetes mellitus) ICD Codes: E11.9 - Type 2 diabetes mellitus without complications Status: Chronic Plan: See above (6) Seizure ICD Codes: R56.9 - Unspecified convulsions Status: Acute Plan: See above (7) Stroke ICD Codes: I63.9 - Cerebral infarction, unspecified Status: Chronic Plan: See above Assessment and Plan Patient examined. Assessment and plan formulated with Sarah Crockett PA-C. I agree with the above. Problem Qualifiers (1) DM (diabetes mellitus): Sarah Crockett Dec 24, 2016 09:47 Mo Chandler DO Dec 28, 2016 14:49
[2016-12-24] MEDS ORDERED: MISCELLANEOUS PHARMACY INFORMATION OTHER ONE (10:45)
[2016-12-24] MEDS: metroNIDAZOLE 500 MG TAB PO SCH ×3 (13:45→22:00)
[2016-12-24] MEDS: DOCUSATE SODIUM 50 MG/SENNA 8.6 MG TAB PO SCH (21:00)
[2016-12-24] MEDS: LEVOFLOXACIN 500 MG TAB PO ONE ×2 (21:31→22:00)
[2016-12-25] VITALS: BP 135/80; PULSE 97; RESP 18; TEMP 98.1; O2SAT 95
[2016-12-25 04:02] VITALS: BP 170/72; PULSE 58; RESP 18; TEMP 98.1; O2SAT 97
[2016-12-25] MEDS: metroNIDAZOLE 500 MG TAB PO SCH ×2 (05:45→14:00)
[2016-12-25] MEDS: LEVOTHYROXINE SODIUM 25 MCG TAB PO SCH (05:45)
[2016-12-25] MEDS: SODIUM CHLOR 0.9% 1000 ML INJ 1,000 ML IV SCH (05:45)
[2016-12-25] MEDS: INSULIN ASPART SUPPLEMENTAL SCALE SQ SCH ×3 (08:00→17:00)
[2016-12-25 08:15] VITALS: BP 159/71; PULSE 60; RESP 18; TEMP 97.5; O2SAT 96
[2016-12-25] MEDS: DIVALPROEX SODIUM DELAYED RELEASE 250 MG TAB PO SCH ×2 (09:00→13:00)
[2016-12-25] MEDS ORDERED: LEVA250T14 PO (09:50)
[2016-12-25] MEDS ORDERED: METR-1 PO ×2 (09:50→10:20)
--- NOTE | 2016-12-25 09:56 | HHI.PR ---
Subjective Remarks No new complaints. Pt follows commands. Pt eating a small amount with encouragement. Objective Vitals Vital Signs Date Time Temp Pulse Resp B/P (MAP) Pulse Ox O2 Delivery O2 Flow Rate FiO2 12/25/16 08:15 97.5 60 18 159/71 (100) 96 12/25/16 04:02 98.1 58 18 170/72 (104) 97 12/25/16 00:00 98.1 97 18 135/80 (98) 95 12/24/16 20:08 97.9 63 18 128/57 (80) 95 12/24/16 16:00 98.4 75 16 156/68 (97) 98 12/24/16 12:17 98.4 69 20 152/67 (95) 99 Result Diagram: 12/23/16 1516 12/23/16 0845 Imaging Last Impressions Head CT 12/22/161808 Signed Impressions: Service Date/Time: Thursday, December 22, 2016 19:12 - CONCLUSION: No acute intracranial abnormality. Chronic white matter changes. Juancho Villalobos MD Chest X-Ray 12/22/161808 Signed Impressions: Service Date/Time: Thursday, December 22, 2016 18:29 - CONCLUSION: No evidence of acute cardiopulmonary disease. Juancho Villalobos MD Abdomen/Pelvis CT 12/22/16 0000 Signed Impressions: Service Date/Time: Thursday, December 22, 2016 21:34 - CONCLUSION: 1. Severe diverticulosis with mild uncomplicated diverticulitis of the descending and sigmoid colon. 2. Nonobstructing stone of the left kidney. 3. Trace atelectasis of both lung bases. 4. Atherosclerotic abdominal aorta. No aneurysm. 5. Summers catheter. Mild bladder wall thickening. Juancho Villalobos MD Objective Remarks GENERAL: This is a elderly 81 year old female patient, SKIN: No rashes, ecchymoses or lesions. Cool and dry. HEAD: Atraumatic. Normocephalic. No temporal or scalp tenderness. EYES: Extraocular motions intact. No scleral icterus. No injection or drainage. CARDIOVASCULAR: Regular rate and rhythm without murmurs, gallops, or rubs. RESPIRATORY: Clear to auscultation. Breath sounds equal bilaterally. No wheezes , rales, or rhonchi. GASTROINTESTINAL: Abdomen soft, non-tender, nondistended. No guarding. MUSCULOSKELETAL: Extremities without clubbing, cyanosis, or edema. No joint tenderness, effusion, or edema noted. No calf tenderness. Negative Homans sign bilaterally. NEUROLOGICAL: Motor and sensory grossly within normal limits. 3 out of 5 muscle strength in all muscle groups. follows commands. Pt can give her name. Pt is NOT oriented to place or time. A/P Problem List: (1) Dehydration ICD Codes: E86.0 - Dehydration Plan: - improved from admission to probable clinical baseline. - Patient from [facility] brought in as she was thought to be less responsive than her normal and vomited x 1. Patient with recent CVA discharged 11/11/2016 - CT head revealed no acute intracranial abnormalities. Chronic white matter changes. - Urinalysis reviewed trace proteins negative ketones negative leukocyte esterase no culture indicated - Chest x-ray reviewed no evidence of acute cardiopulmonary disease. - CT abdomen and pelvis reviewed and reveals: Severe diverticulosis with mild uncomplicated diverticulitis of the descending and sigmoid colon. Nonobstructing stone in the left kidney. Trace atelectasis of both lung bases. Atherosclerosis abdominal aorta no aneurysm. Summers catheter mild bladder wall thickening - total Bilirubin 0.3, AST 26 ALT 28, alk phos 98 - Continue aspirin 81 mg daily - started on Levaquin 500 mg PO daily and metronidazole 500 mg PO TID - Platelet count 39, 000 repeat CBC showed PLT 114,000 - Positive blood culture 1/4 bottles with Staph Sp Coagulase negative - case d/ w microbiology laboratory. Probable contaminant. Clinically pt does NOT appear bacteremic. - Acute kidney injury likely secondary to dehydration - improved - Patient received 1 L normal saline in emergency department, and then gentle IV hydration at 50ml/h - poor PO intake Hypothyroidism - continue home levothyroxine 25 mcg daily - TSH 16.8, Free T4 1.08 - recommend repeating TSH and T4 in 1 week to see trend Hypertension - continue hydralazine 25 mg 4 times a day -Hold enalapril 20 mg by mouth twice a day due to patient's acute kidney injury seizure disorder -continue home Keppra 500 mg by mouth every [address] 250 mg 3 times a day Diabetes mellitus type 2 - hold metformin while patient is in the hospital. Accu-Cheks before meals at bedtime with low-dose sliding scale insulin coverage DVT prophylaxis with SCDs Discussed with daughter Wendi Harry 12/23/16 would like patient to be a Full Code at this time - consult placed to Palliative care to assist with establishing goals of care, appreciate their assistance Dementia - Continue home Namenda 10 mg by mouth daily - Hold Haldol as patient is currently - Pt had endstage dementia with occasional behavioral disturbances and poor PO intake - Pt's overall prognosis is poor. - Case d/w pt's Daughter. She requests Hospice consult. - Pt is certainly at high risk of further decline and readmission - Hospice would be appropriate for this patient. (2) Dementia ICD Codes: F03.90 - Unspecified dementia without behavioral disturbance Plan: See above (3) Diverticulitis ICD Codes: K57.92 - Diverticulitis of intestine, part unspecified, without perforation or abscess without bleeding Plan: See above (4) HTN (hypertension) ICD Codes: I10 - Essential (primary) hypertension Plan: See above (5) DM (diabetes mellitus) ICD Codes: E11.9 - Type 2 diabetes mellitus without complications Status: Chronic Plan: See above (6) Seizure ICD Codes: R56.9 - Unspecified convulsions Status: Acute Plan: See above (7) Stroke ICD Codes: I63.9 - Cerebral infarction, unspecified Status: Chronic Plan: See above Problem Qualifiers (1) DM (diabetes mellitus): Mo Chandler DO Dec 25, 2016 09:56
[2016-12-25] MEDS: hydrALAZINE HCL 25 MG TAB PO SCH ×2 (10:06→13:00)
[2016-12-25] MEDS: ENALAPRIL MALEATE 10 MG TAB PO SCH (10:08)
[2016-12-25] MEDS: levETIRAcetam 500 MG TAB PO SCH (10:09)
[2016-12-25] MEDS: ASPIRIN 81 MG CHEW TAB CHEW SCH (10:11)
[2016-12-25] MEDS: ESCITALOPRAM OXALATE 10 MG TAB PO SCH (10:12)
[2016-12-25] MEDS: MEMANTINE HCL 10 MG TAB PO SCH (10:12)
--- NOTE | 2016-12-25 11:20 | HHI.DCPOC ---
Discharge Care Plan Diagnosis: (1) Dehydration (2) Dementia (3) Diverticulitis Goals to Promote Your Health * To prevent worsening of your condition and complications * To maintain your health at the optimal level Directions to Meet Your Goals Take your medications as prescribed Follow your dietary instruction Follow activity as directed Keep your appointments as scheduled Take your immunizations and boosters as scheduled If your symptoms worsen call your PCP, if no PCP go to Urgent Care Center or Emergency Room Smoking is Dangerous to Your Health. Avoid second hand smoke Call the 24-hour hour crisis hotline for domestic abuse at Sarah Crockett Dec 25, 2016 11:20 Mo Chandler DO Dec 28, 2016 14:50
[2016-12-25 12:00] VITALS: BP 176/74; PULSE 66; RESP 18; TEMP 98; O2SAT 96
[2016-12-25 15:55] VITALS: BP 178/79; PULSE 62; RESP 18; TEMP 97; O2SAT 92
--- NOTE | 2016-12-25 18:25 | HHI.DS ---
Discharge Summary Admission Date Dec 22, 2016 at 23:04 Discharge Date: Dec 25, 2016 Admitting Diagnosis Sepsis, diverticulitis (1) Dehydration ICD Codes: E86.0 - Dehydration (2) Dementia ICD Codes: F03.90 - Unspecified dementia without behavioral disturbance (3) Diverticulitis ICD Codes: K57.92 - Diverticulitis of intestine, part unspecified, without perforation or abscess without bleeding (4) HTN (hypertension) ICD Codes: I10 - Essential (primary) hypertension (5) DM (diabetes mellitus) ICD Codes: E11.9 - Type 2 diabetes mellitus without complications Status: Chronic (6) Seizure ICD Codes: R56.9 - Unspecified convulsions Status: Acute (7) Stroke ICD Codes: I63.9 - Cerebral infarction, unspecified Status: Chronic Brief History This 81-year-old female patient with past medical history which includes dementia, hypertension, diabetes mellitus, seizures and recent CVA November 2016. Patient is a resident at [facility] and was thought to be less responsive than her normal self and brought to the emergency department for further evaluation and treatment. Daughter also reported an episode of vomiting 12/22/16. There was no seizure activity witnessed. Patient is unable to provide meaningful information therefore information gathered from prior computerized charting as well as physical exam. Discussed with daughter Wendi Harry over the phone patient's baseline for the past few months includes talking 1-2 words at a time with refusal to speak or interact at times. Patient has also been treated for aggressive behavior and bennett acted in the past. Patient currently offering no complaints at this time. CBC/BMP: 12/23/16 1516 12/23/16 0845 Significant Findings Laboratory Tests Test 12/22/16 18:50 12/22/16 19:45 12/22/16 22:30 12/23/16 08:45 White Blood Count 14.2 TH/MM3 (4.0-11.0) Red Blood Count 3.04 MIL/MM3 (4.00-5.30) Hemoglobin 9.9 GM/DL (11.6-15.3) Hematocrit 30.9 % (35.0-46.0) Mean Corpuscular Volume 101.7 FL (80.0-100.0) Platelet Count 39 TH/MM3 (150-450) Mean Platelet Volume 11.3 FL (7.0-11.0) Neutrophils (%) (Auto) 91.0 % (16.0-70.0) Lymphocytes (%) (Auto) 3.0 % (9.0-44.0) Neutrophils # (Auto) 12.9 TH/MM3 (1.8-7.7) Lymphocytes # (Auto) 0.4 TH/MM3 (1.0-4.8) Platelet Morphology Comment CLUMPED (NORMAL) Prothrombin Time 11.7 SEC (9.8-11.6) Creatinine 1.26 MG/DL (0.50-1.00) 1.16 MG/DL (0.50-1.00) Random Glucose 155 MG/DL (74-106) 108 MG/DL (74-106) Albumin 2.8 GM/DL (3.4-5.0) Chloride Level 108 MEQ/L (98-107) 110 MEQ/L (98-107) Estimat Glomerular Filtration Rate 41 ML/MIN (>89) 45 ML/MIN (>89) Lactic Acid Level 5.7 mmol/L (0.4-2.0) 2.4 mmol/L (0.4-2.0) Thyroid Stimulating Hormone 3rd Gen 16.800 uIU/ML (0.358-3.740) Blood Urea Nitrogen 19 MG/DL (7-18) Ammonia LESS THAN 10 MCMOL/L Vitamin B12 Level 1023 PG/ML (193-986) Valproic Acid (Depakene) Level 16 MCG/ML (50-100) Test 12/23/16 15:16 White Blood Count 11.7 TH/MM3 (4.0-11.0) Red Blood Count 2.97 MIL/MM3 (4.00-5.30) Hemoglobin 9.9 GM/DL (11.6-15.3) Hematocrit 30.5 % (35.0-46.0) Mean Corpuscular Volume 102.5 FL (80.0-100.0) Platelet Count 114 TH/MM3 (150-450) Neutrophils (%) (Auto) 78.2 % (16.0-70.0) Monocytes (%) (Auto) 10.5 % (0.0-8.0) Neutrophils # (Auto) 12.4 TH/MM3 (1.8-7.7) Monocytes # (Auto) 1.7 TH/MM3 (0-0.9) Platelet Estimate LOW (NORMAL) Imaging Last Impressions Head CT 12/22/161808 Signed Impressions: Service Date/Time: Thursday, December 22, 2016 19:12 - CONCLUSION: No acute intracranial abnormality. Chronic white matter changes. Juancho Villalobos MD Chest X-Ray 12/22/161808 Signed Impressions: Service Date/Time: Thursday, December 22, 2016 18:29 - CONCLUSION: No evidence of acute cardiopulmonary disease. Juancho Villalobos MD Abdomen/Pelvis CT 12/22/16 0000 Signed Impressions: Service Date/Time: Thursday, December 22, 2016 21:34 - CONCLUSION: 1. Severe diverticulosis with mild uncomplicated diverticulitis of the descending and sigmoid colon. 2. Nonobstructing stone of the left kidney. 3. Trace atelectasis of both lung bases. 4. Atherosclerotic abdominal aorta. No aneurysm. 5. Summers catheter. Mild bladder wall thickening. Juancho Villalobos MD PE at Discharge GENERAL: This is a elderly 81 year old female patient, SKIN: No rashes, ecchymoses or lesions. Cool and dry. HEAD: Atraumatic. Normocephalic. No temporal or scalp tenderness. EYES: Extraocular motions intact. No scleral icterus. No injection or drainage. CARDIOVASCULAR: Regular rate and rhythm without murmurs, gallops, or rubs. RESPIRATORY: Clear to auscultation. Breath sounds equal bilaterally. No wheezes , rales, or rhonchi. GASTROINTESTINAL: Abdomen soft, non-tender, nondistended. No guarding. MUSCULOSKELETAL: Extremities without clubbing, cyanosis, or edema. No joint tenderness, effusion, or edema noted. No calf tenderness. Negative Homans sign bilaterally. NEUROLOGICAL: Motor and sensory grossly within normal limits. 3 out of 5 muscle strength in all muscle groups. follows commands. Pt can give her name. Pt is NOT oriented to place or time. Hospital Course Dehydration - improved from admission to probable clinical baseline. - Patient from [facility] unit brought in as she was thought to be less responsive than her normal and vomited x 1. Patient with recent CVA discharged 11/11/2016 - CT head revealed no acute intracranial abnormalities. Chronic white matter changes. - Urinalysis reviewed trace proteins negative ketones negative leukocyte esterase no culture indicated - Chest x-ray reviewed no evidence of acute cardiopulmonary disease. - CT abdomen and pelvis reviewed and reveals: Severe diverticulosis with mild uncomplicated diverticulitis of the descending and sigmoid colon. Nonobstructing stone in the left kidney. Trace atelectasis of both lung bases. Atherosclerosis abdominal aorta no aneurysm. Summers catheter mild bladder wall thickening - total Bilirubin 0.3, AST 26 ALT 28, alk phos 98 - Continue aspirin 81 mg daily - started on Levaquin 500 mg PO daily and metronidazole 500 mg PO TID - Platelet count 39, 000 repeat CBC showed PLT 114,000 - Positive blood culture / bottles with Staph Sp Coagulase negative - case d/ w microbiology laboratory. Probable contaminant. Clinically pt does NOT appear bacteremic. - Acute kidney injury likely secondary to dehydration - improved - Patient received 1 L normal saline in emergency department, and then gentle IV hydration at 50ml/h - poor PO intake Hypothyroidism - continue home levothyroxine 25 mcg daily - TSH 16.8, Free T4 1.08 - recommend repeating TSH and T4 in 1 week to see trend Hypertension - continue hydralazine 25 mg 4 times a day -Hold enalapril 20 mg by mouth twice a day due to patient's acute kidney injury seizure disorder -continue home Keppra 500 mg by mouth every [address] 250 mg 3 times a day Diabetes mellitus type 2 - hold metformin while patient is in the hospital. Accu-Cheks before meals at bedtime with low-dose sliding scale insulin coverage DVT prophylaxis with SCDs Discussed with daughter Wendi Harry 12/23/16 would like patient to be a Full Code at this time - consult placed to Palliative care to assist with establishing goals of care, appreciate their assistance Dementia - Continue home Namenda 10 mg by mouth daily - Hold Haldol as patient is currently - Pt had endstage dementia with occasional behavioral disturbances and poor PO intake - Pt's overall prognosis is poor. - Case d/w pt's Daughter. She requests Hospice consult. - Pt is certainly at high risk of further decline and readmission - Hospice would be appropriate for this patient. - Patient being DC to [facility] with Hospice Pt Condition on Discharge: Stable Discharge Disposition: [facility]IOR [facility]ARE Discharge Instructions DIET: Follow Instructions for: Diabetic Diet Activities you can perform: Regular-No Restrictions Follow up Referrals: PCP Follow-up - [address] Goldberg New Medications: Levofloxacin (Levaquin) 250 Mg Tablet 250 MG PO Q24H for antibiotic, #6 TAB 0 Refills Metronidazole (Flagyl) 500 Mg Tab 500 MG PO Q8HR for antibiotic, #18 TAB 0 Refills Continued Medications: Aspirin (Aspirin Low Strength) 81 Mg Chew 81 MG CHEW DAILY for health, #30 EA [address] (Depakote DR) 250 Mg Tabdr 250 MG PO TID for Control Seizures, #60 TAB 0 Refills Enalapril (Vasotec) 20 Mg Tab 20 MG PO BID for HTN, #30 TAB 0 Refills Escitalopram (Escitalopram) 10 Mg Tab 10 MG PO DAILY for health, #30 TAB 0 Refills Hydralazine HCl (Hydralazine HCl) 25 Mg Tablet 25 MG PO QID for Blood Pressure Management, #120 TAB 0 Refills Levetiracetam (Keppra) 500 Mg Tab 500 MG PO Q12HR for SZ for 30 Days, TAB 11 Refills Levothyroxine (Levothyroxine) 25 Mcg Tab 25 MCG PO DAILY for Thyroid, #30 TAB 0 Refills Memantine (Namenda) 10 Mg Tab 10 MG PO DAILY for Alzheimer Disease, #30 TAB 0 Refills Metformin (Metformin) 500 Mg Tab 500 MG PO BIDPC for Blood Sugar Management, #60 TAB 0 Refills With meals Sennosides-Docusate Sodium (Senna S) 8.6-50 Mg Tab 2 TAB PO HS Discontinued Medications: Haloperidol (Haloperidol) 0.5 Mg Tab 0.5 MG PO DAILY@1600 for health, #30 TAB 0 Refills Ketoconazole Topical Shampoo (Nizoral Topical Shampoo) 2% Sham 1 APPLIC EXTERNAL DAILY for health, #1 BOTTLE 0 Refills [Abh Gel] () 1 APPLIC T-DERMAL Q4HR PRN for PSYCHOSIS/COMBATIVNESS Additional Information Patient examined. Assessment and plan formulated with Sarah Crockett PA-C. I agree with the above. Sarah Crockett Dec 25, 2016 18:25 Mo Chandler DO Dec 28, 2016 14:50
[2016-12-25] MEDS ORDERED: LEVOFLOXACIN 250 MG TAB PO SCH (22:00)
== END 2016-12-25 20:00 | disposition hospice, inpatient (51) ==
LOC: NEPE 17:44 → NEDA 22:53 → UNDOADMIN 22:53 → INTOOBSV 23:04 → NEDA 23:04 → NEPGCP 12-23 00:58
PROVIDERS: ADMIT Hospitalist; ATTEND Hospitalist
DX: E86.0 Dehydration (principal); K57.90 Diverticulosis of intestine, part unspecified, without perforation or abscess without bleeding; K57.92 Diverticulitis of intestine, part unspecified, without perforation or abscess without bleeding; I10 Essential (primary) hypertension; E11.9 Type 2 diabetes mellitus without complications; I63.9 Cerebral infarction, unspecified; B95.7 Other staphylococcus as the cause of diseases classified elsewhere; Z16.19 Resistance to other specified beta lactam antibiotics; R10.9 Unspecified abdominal pain; N17.9 Acute kidney failure, unspecified; F03.90 Unspecified dementia, unspecified severity, without behavioral disturbance, psychotic disturbance, mood disturbance, and anxiety; E03.9 Hypothyroidism, unspecified; G40.909 Epilepsy, unspecified, not intractable, without status epilepticus; N20.0 Calculus of kidney; G93.40 Encephalopathy, unspecified; Z51.5 Encounter for palliative care; Z79.82 Long term (current) use of aspirin; Z66 Do not resuscitate
CPT/HCPCS: 51702; 70450; 71010; 74177; 80048; 80053; 80164; 80177; 81001; 82140; 82550; 82607; 82746; 82948; 83036; 83605; 84439; 84443; 84484; 85025; 85610; 86403; 86592; 87040; 87077; 87186; 87205; 93005; 96361; 96365; 96366; 96367; 96372; 96375; 99285; G0378; J1815; J1956; J2543; J3370; J7030; J7050; Q9967